=== PATIENT | female | born 1955 | race Caucasian/White ===

== ENCOUNTER 2017-02-14 10:47 | Inpatient (IN) | payer BC ==
[~2017-02-14] VITALS: Ht 157.5 cm; Wt 52.4 kg
[2017-02-14] VITALS (12 sets, daily range): BP systolic 113–125; BP diastolic 63–71; PULSE 74–99; RESP 16; TEMP 97.7–97.8; O2SAT 96–100
[~2017-02-14 10:47] MED LIST: ALPR.25 PO; CYCL1TAB29 PO; IBUP800T23 PO; IMIT50TA PO; LEVO25TA4 PO; REST15CA PO
[2017-02-14] MEDS ORDERED: SODIUM CHLOR 0.9% 1000 ML INJ 1,000 ML IV ONE (10:55)
[2017-02-14 11:06] LABS: I-STAT SODIUM 143 MMOL/L (138-146)
[2017-02-14 11:08] LABS: BASOPHIL # 0.1 TH/MM3 (0-0.2); BASOPHIL % 1.3 % (0.0-2.0); EOSINOPHIL # 0.2 TH/MM3 (0-0.4); HEMATOCRIT 40.8 % (35.0-46.0); HEMO FLAGS DIFF FINAL; LYMPH % 26.6 % (9.0-44.0); LYMPHOCYTE # 2.1 TH/MM3 (1.0-4.8); MEAN CELL VOLUME 95.1 FL (80.0-100.0); MEAN CORPUSCULAR HEMOGLOBIN 32.3 PG (27.0-34.0); MEAN CORPUSCULAR HGB CONC 33.9 % (32.0-36.0); MONO % 7.2 % (0.0-8.0); NEUT % 62.9 % (16.0-70.0); PLATELET COUNT 319 TH/MM3 (150-450); RED BLOOD COUNT 4.29 MIL/MM3 (4.00-5.30); RED CELL DISTRIBUTION WIDTH 13.5 % (11.6-17.2); WHITE BLOOD COUNT 7.9 TH/MM3 (4.0-11.0)
--- NOTE | 2017-02-14 11:09 | RADRPT ---
EXAM DATE/TIME: 02/14/2017 10:58 [facility] COMPARISON: CT BRAIN W/O CONTRAST, January 28, 2016, 10:03. INDICATIONS : Right extremity weakness. RADIATION DOSE: 27.70 CTDIvol (mGy) This report was called by Orlando Patiño at <1107am> MEDICAL HISTORY : Non-responsive. SURGICAL HISTORY : Non-responsive. ENCOUNTER: Initial ACUITY: 1 day PAIN SCALE: Non-responsive LOCATION: cranial TECHNIQUE: Multiple contiguous axial images were obtained of the head. Using automated exposure control and adj ustment of the mA and/or kV according to patient size, radiation dose was kept as low as reasonably a chievable to obtain optimal diagnostic quality images. DICOM format image data is available electro nically for review and comparison. FINDINGS: CEREBRUM: The ventricles are normal for age. No evidence of midline shift, mass lesion, hemorrhage or acute in farction. No extra-axial fluid collections are seen. POSTERIOR FOSSA: The cerebellum and brainstem are intact. The 4th ventricle is midline. The cerebellopontine angle i s unremarkable. EXTRACRANIAL: The visualized portion of the orbits is intact. SKULL: The calvaria is intact. No evidence of skull fracture. CONCLUSION: Normal examination. This report was called to Haroon at 1107am.. Ousmane Perry MD on February 14, 2017 at 11:07 Board Certified Radiologist. This report was verified electronically.
[2017-02-14 11:17] LABS: INTERNATIONAL NORMALIZED RATIO 0.9 RATIO; PROTHROMBIN TIME - PATIENT 10.3 SEC (9.8-11.6)
[2017-02-14 11:18] LABS: APTT (PATIENT) 27.3 SEC (24.3-30.1)
--- NOTE | 2017-02-14 11:25 | PD ---
HPI . Right-sided weakness Chief Complaint: Neuro Symptoms/ Deficits Time Seen by Provider: 10:52 Travel History International Travel<30 days: No Contact w/Intl Traveler<30days: No Traveled to known affect area: No History of Present Illness HPI This patient presents by [facility] with a chief complaint of acute right sided weakness. She was driving her car when she noticed right arm weakness. Estimated onset of symptoms was between 10 and 10:15 AM. She subsequently noticed some right lower extremity weakness as well. Patient reports that she does not take any anticoagulants. No noted inciting event. No exacerbating or relieving factors. Symptoms are mild. PFSH Past Medical History Arthritis: No Autoimmune Disease: No Blood Disorders: No Anxiety: Yes Depression: Yes Cancer: No Cardiovascular Problems: No Cerebrovascular Accident: No Diabetes: No Diminished Hearing: No Endocrine: Yes Fibromyalgia: Yes Gastrointestinal Disorders: Yes Genitourinary: Yes Headaches: Yes Hepatitis: No Hiatal Hernia: No Immune Disorder: No Musculoskeletal: Yes (DEGENERATIVE DISC DISEASE PER PT,NECK BACK , ARTHRTIS) Neurologic: Yes (NUMBNESS AND TINGLING) Psychiatric: No Reproductive: No Respiratory: No Migraines: Yes Myocardial Infarction: No Renal Failure: No Seizures: Yes (one during 32 years ago) Thyroid Disease: Yes Ulcer: No Menopausal: Yes Past Surgical History Abdominal Surgery: Yes (APPY, OVARY RUPTURED AND REPAIRED) Appendectomy: Yes Cardiac Surgery: No Ear Surgery: No Endocrine Surgery: No Eye Surgery: No Genitourinary Surgery: Yes (pilonidal cysts) Gynecologic Surgery: No Oral Surgery: No Thoracic Surgery: No Other Surgery: Yes Social History Alcohol Use: Yes (OCC) Tobacco Use: Yes (1 PPD) Substance Use: No Allergies-Medications (Allergen,Severity, Reaction): Coded Allergies: No Known Allergies (Verified , 02/14/17) Reported Meds & Prescriptions Reported Meds & Active Scripts Active Flexeril (Cyclobenzaprine HCl) 10 Mg Tab 10 Mg PO TID PRN Reported Restoril (Temazepam) 15 Mg Cap 15 Mg PO HS PRN Xanax (Alprazolam) 0.25 Mg Tab 0.25 Mg PO TID PRN Ibuprofen 800 Mg Tab 800 Mg PO Q8H PRN Review of Systems Except as stated in HPI: all other systems reviewed are Neg Eyes: No: Blurred Vision HENT: No: Headaches Cardiovascular: No: Chest Pain or Discomfort Respiratory: No: Shortness of Breath Gastrointestinal: No: Nausea, Vomiting Neurologic: Positive: Weakness, Focal Abnormalities, Slurred Speech (EMS reports some slurred speech), No: Syncope, Headache, Change in Mentation, Incontinence, Seizures Physical Exam Narrative GENERAL: Patient is awake and alert and able to give her history. SKIN: Warm and dry. HEAD: Atraumatic. Normocephalic. EYES: Pupils equal and round. Extraocular movements are intact. ENT: No nasal bleeding or discharge. Mucous membranes pink and moist. NECK: Trachea midline. Neck is supple. CARDIOVASCULAR: Regular rate and rhythm. Heart sounds are normal. RESPIRATORY: No accessory muscle use. Lungs are clear with full air movement throughout. GASTROINTESTINAL: Abdomen soft, non-tender, nondistended. MUSCULOSKELETAL: No obvious deformities. No edema. NEUROLOGICAL: Awake and alert. No obvious cranial nerve deficits. Mild right- sided weakness. Initial NIH stroke score was 4. PSYCHIATRIC: Appropriate mood and affect; insight and judgment normal. Patient appears frightened. Data Data Last Documented VS Vital Signs Date Time Temp Pulse Resp B/P Pulse Ox O2 Delivery O2 Flow Rate FiO2 02/14/17 11:14 96 16 113/66 100 Room Air 2 02/14/17 10:51 97.7 Orders Diet Npo (02/14/17 Lunch) Activity Bed Rest (02/14/17 ) Electrocardiogram (02/14/17 ) I-Stat Creatinine (02/14/17 10:55) I-Stat Profile (02/14/17 10:55) Prothrombin Time / Inr (Pt) (02/14/17 10:55) Act Partial Throm Time (Ptt) (02/14/17 10:55) Complete Blood Count With Diff (02/14/17 10:55) Fibrinogen (02/14/17 10:55) Creatine Kinase (Cpk) (02/14/17 10:55) Troponin I (02/14/17 10:55) Ua Includes Microscopic (02/14/17 10:55) Drug Screen, Random Urine (02/14/17 10:55) Type And Screen (02/14/17 10:55) Ct Brain W/O Iv Contrast(Rout) (02/14/17 ) Consult Neurology (02/14/17 ) Blood Glucose (02/14/17 10:55) Ecg Monitoring (02/14/17 10:55) Neuro Checks Q2HX12,Q4H (02/14/17 10:55) Nursing Bedside Swallow Assess .ONCE (02/14/17 10:55) Iv Access Insert/Monitor (02/14/17 10:55) NPO (02/14/17 10:55) Oximetry (02/14/17 10:55) Oxygen Administration (02/14/17 10:55) Sodium Chlor 0.9% 1000 Ml Inj (Ns 1000 M (02/14/17 10:55) Resp Oxygen Cale C Titrat 1-4 L (02/14/17 10:55) Cath For Specimen (02/14/17 10:55) ^ Call Pharmacy (02/14/17 11:16) Nih Stroke Scale - Nihss .ONCE (02/14/17 11:16) Urinary Catheter Insert/Apply (02/14/17 11:16) Anticoagulant Alert (02/14/17 11:16) ^ Post Infusion Restrictions (02/14/17 11:16) ^ Medication Alert (02/14/17 11:16) Vital Signs (Adult) .As directed (02/14/17 11:16) Notify Dr: Blood Pressure (02/14/17 11:16) ^ Medication Alert (02/14/17 11:16) Alteplase Bolus (Activase Bolus) (02/14/17 11:30) Alteplase Drip (Activase Drip) (02/14/17 11:30) Labs Laboratory Tests Test 02/14/17 10:50 White Blood Count 7.9 TH/MM3 Red Blood Count 4.29 MIL/MM3 Hemoglobin 13.8 GM/DL Bedside Hemoglobin 13.9 G/DL Hematocrit 40.8 % Bedside Hematocrit 41.0 % Mean Corpuscular Volume 95.1 FL Mean Corpuscular Hemoglobin 32.3 PG Mean Corpuscular Hemoglobin 33.9 % Concent Red Cell Distribution Width 13.5 % Platelet Count 319 TH/MM3 Mean Platelet Volume 7.7 FL Neutrophils (%) (Auto) 62.9 % Lymphocytes (%) (Auto) 26.6 % Monocytes (%) (Auto) 7.2 % Eosinophils (%) (Auto) 2.0 % Basophils (%) (Auto) 1.3 % Neutrophils # (Auto) 5.0 TH/MM3 Lymphocytes # (Auto) 2.1 TH/MM3 Monocytes # (Auto) 0.6 TH/MM3 Eosinophils # (Auto) 0.2 TH/MM3 Basophils # (Auto) 0.1 TH/MM3 CBC Comment DIFF FINAL Differential Comment Prothrombin Time 10.3 SEC Prothromb Time International 0.9 RATIO Ratio Activated Partial 27.3 SEC Thromboplast Time Fibrinogen 279 mg/dL Bedside Sodium 143 MMOL/L Bedside Potassium 5.0 MMOL/L Bedside Chloride 106 MMOL/L Bedside Blood Urea Nitrogen 20 MG/DL Bedside Creatinine 0.7 MG/DL Bedside Glucose 102 MG/DL MDM Medical Screen Exam Complete: Yes Emergency Medical Condition: Yes Differential Diagnosis Differential diagnosis includes but is not limited to TIA, CVA, brain tumor, migraine, anxiety Narrative Course Patient presents as a stroke alert. Stroke score was 4. The case was discussed urgently with Dr. Bustillos who recommended TPA if her head CT was negative. The radiologist reports that the head CT is indeed negative. Therefore, TPA has been ordered. Dr. Bustillos is now here seeing the patient. EKG shows a normal sinus rhythm with no acute ischemic change. Last Impressions Head CT 02/14/17 0000 Signed Impressions: Service Date/Time: Tuesday, February 14, 2017 10:58 - CONCLUSION: Normal examination. This report was called to [place] at 1107am.. Ousmane Perry MD Critical Care Narrative Aggregate critical care time was 30 minutes. Time to perform other separately billable procedures was not included in the critical care time. My time did not include minutes spent treating any other patients simultaneously or on activities that did not directly contribute to the patient's treatment. The services I provided to this patient were to treat and/or prevent clinically significant deterioration that could result from CVA. I provided critical care services requiring my management, as noted below: Chart data review, documentation time, medication orders and management, vital sign assessments/reviewing monitor data, ordering and reviewing lab tests, ordering and interpreting/reviewing x-rays and diagnostic studies, care of the patient and discussion of the patient with the admitting physicians. Stroke Alert NIHSS NIH Stroke Scale Result: 4 NIHSS Time Completed: 11:00 Physician Communication Physician Communication Case was discussed with Dr. Bustillos, neurology and with Dr. Perry, radiology. Diagnosis Diagnosis: Primary Impression: CVA (cerebral vascular accident) Qualified Code: I63.9 - Cerebrovascular accident (CVA), unspecified mechanism Admitting Physician Requests: Admit Condition: Stable Lashaun Patiño MD Feb 14, 2017 11:25
[2017-02-14] MEDS ORDERED: ALTEPLASE BOLUS 9 MG/9 ML SYR IV ONE (11:30)
[2017-02-14] MEDS ORDERED: ALTEPLASE DRIP IV ONE (11:30)
[2017-02-14 11:38] LABS: CREATINE KINASE 98 U/L (26-192)
[2017-02-14 12:02] LABS: AMPHETAMINE, URINE NEG (NEG); BARBITURATES, URINE NEG (NEG); COCAINE, URINE NEG (NEG)
[2017-02-14 12:08] LABS: HDL CHOLESTEROL 59.7 MG/DL (40.0-60.0)
[2017-02-14 12:17] LABS: BACTERIA, URINE OCC /hpf; BLOOD, URINE NEG (NEG); GLUCOSE,URINE NEG (NEG); KETONE, URINE NEG (NEG); NITRITE,URINE POS (NEG); SQUAMOUS EPITHELIAL CELL URINE <1 /hpf (0-5); URINE COLOR YELLOW (YELLW/STRAW)
--- NOTE | 2017-02-14 13:04 | RADRPT ---
EXAM DATE/TIME: 02/14/2017 12:30 [facility] COMPARISON: No previous studies available for comparison. INDICATIONS : Cerebrovascular accident. MEDICAL HISTORY : Hypothyroidism. Seizures. Fibromyalgia. SURGICAL HISTORY : Appendectomy. Cervical fusion. ENCOUNTER: Initial ACUITY: 1 day PAIN SCORE: 0/10 LOCATION: Bilateral neck PEAK SYSTOLIC VELOCITIES (cm/sec): ICA/CCA RATIO: Right: 0.9 Left: 1.2 ICA: Right: 69 Left: 103 CCA: Right: 80 Left: 88 ECA: Right: 92 Left: 87 VERTEBRAL: Right: 40 antegrade Left: 92 antegrade Elevated flow velocities and ICA/CCA ratios have been found to correlate with increased degrees of vessel stenosis, calculated as percentage of diameter relative to a normal segment of distal ICA/CCA FINDINGS: RIGHT CAROTID: No significant stenosis is visualized. Mild plaque. The waveforms are within normal limits. LEFT CAROTID: No significant stenosis is visualized. Mild plaque. The waveforms are within normal limits. VERTEBRAL ARTERIES: Antegrade flow is seen in both vertebral arteries. MISCELLANEOUS: None. CONCLUSION: No hemodynamically significant stenosis identified in either carotid artery. Laci Zaman MD on February 14, 2017 at 13:02 Board Certified Radiologist. This report was verified electronically.
[2017-02-14] MEDS ORDERED: GADODIAMIDE PF 287 MG/ML 10 ML VIAL (for RAD MRI) IV ONE (13:22)
--- NOTE | 2017-02-14 13:34 | RADRPT ---
EXAM DATE/TIME: 02/14/2017 13:02 [facility] COMPARISON: No previous studies available for comparison. INDICATIONS : Right sided weakness. MEDICAL HISTORY : Arthritis. SURGICAL HISTORY : Fusion, cervical. ENCOUNTER: Initial ACUITY: 1 day PAIN SCORE: 0/10 LOCATION: cranial Please note a normal MRA of the brain does not entirely exclude the possibility of a small aneurysm, nor the possibility of distal intracranial vessel disease. TECHNIQUE: 3D time of flight MRA was performed. Source images, multiplanar STS MIP, and 3D volume MIP reconstru ctions were reviewed. FINDINGS: There is excellent visualization of the major intracranial arteries out to the second-order branch ve ssels. There is no evidence for aneurysm, vessel truncation or stenosis, and no evidence for vascula r malformation. There are prominent bilateral superior cerebellar arteries. CONCLUSION: Normal examination. There is some unusual anatomy in regards to the left posterior cerebral artery. The left posterior vertebral artery extends anteriorly joining with the left posterior communicating artery which then contributes the majority of flow to the left posterior cerebral circulation. Ousmane Perry MD on February 14, 2017 at 13:31 Board Certified Radiologist. This report was verified electronically.
--- NOTE | 2017-02-14 13:39 | RADRPT ---
EXAM DATE/TIME: 02/14/2017 13:02 [facility] COMPARISON: No previous studies available for comparison. INDICATIONS : Right sided weakness. CONTRAST: 10 cc Omniscan (gadodiamide) IV MEDICAL HISTORY : Arthritis. SURGICAL HISTORY : Fusion, cervical. ENCOUNTER: Initial ACUITY: 1 day PAIN SCORE: 0/10 LOCATION: cranial TECHNIQUE: Multiplanar, multisequence MRI of the brain was performed both prior to and following the administrat ion of paramagnetic contrast. FINDINGS: CEREBRUM: Small area of high flair abnormality in the left posterior capsule of the basal ganglia. The ventricl es are normal for age. No evidence of midline shift, mass lesion or hemorrhage. No extraaxial fluid collections are seen. The pituitary gland and suprasellar cistern are normal in configuration. WHITE MATTER: No significant signal abnormalities are seen in the white matter. POSTERIOR FOSSA: The cerebellum and brainstem are intact. The 4th ventricle is midline. The cerebellopontine angle is unremarkable. The cerebellar tonsils are normal in position. DIFFUSION IMAGING: Small area of focal restricted diffusion seen left basal ganglia consistent with acute infarction. EXTRACRANIAL: The visualized portions of the orbits and paranasal sinuses are unremarkable. POST-CONTRAST: No abnormal areas of parenchymal or dural enhancement. No evidence of blood-brain barrier breakdown. CONCLUSION: 1. Small area of acute infarction left basal ganglia. 2. No midline shift or mass effect. Laci Zaman MD on February 14, 2017 at 13:35 Board Certified Radiologist. This report was verified electronically.
--- NOTE | 2017-02-14 15:22 | MB ---
cc: QUINN GLASER DATE OF CONSULTATION: 02/14/2017 REASON FOR CONSULTATION Stroke alert. HISTORY OF PRESENT ILLNESS Ms. Lima is a very pleasant 61-year-old female previously in good health until around 10:15 this morning when she had the abrupt onset of weakness involving the right arm and right leg. She had no speech changes. A stroke alert was called. Her symptoms have remained unchanged. She has no prior stroke or TIA. She denies being on any anticoagulants. No recent surgery. No history of blood loss. PAST MEDICAL HISTORY 1. Degenerative joint disease. 2. Osteoarthritis. 3. Fibromyalgia. 4. Low blood pressure. 5. Migraine headache. 6. Appendectomy. 7. Ovarian rupture and repair. 8. Pilonidal cyst surgery. SOCIAL HISTORY Drinks alcohol occasionally. She does smoke one-pack a day. MEDICATIONS AT HOME 1. Restoril. 2. Xanax. 3. Ibuprofen. ALLERGIES NONE KNOWN. NEUROLOGIC EXAMINATION VITAL SIGNS: Her blood pressure is 113/66, pulse 96, respiratory rate is 16, temperature 97.7 degrees. Higher cortical functions are normal including speech. Cranial nerves: A very subtle right facial droop, other cranial nerves are normal. On motor exam she is weak in the right arm about 3/5, the right leg is 4/5 proximally and distally with normal strength to the left arm and left leg. She has got diminished fine motor skills of the right hand. Reflexes are symmetric. IMAGING CT of the brain is within normal limits. No hemorrhage, no mass effect, no edema. LABORATORY DATA White count 7900, hemoglobin 13.5, hematocrit 40.8%, platelet count 319,000. Sodium is 143, potassium is 5, chloride 106, BUN is 20, creatinine 0.7, glucose 102. PT 10.3, INR 0.9, APTT 27.3. IMPRESSION Acute left hemisphere stroke. The patient is a candidate for IV TPA. Her NIH Stroke Scale is 4. Therefore, in the absence of aphasia and with an NIH Stroke Scale of less than 6 would not recommend any further evaluation with a CTA or CT perfusion as she would not be a candidate for endovascular therapy, however she is a candidate for IV TPA. I did review with her in detail the risks and benefits including a 6% risk of hemorrhage. She states that she does wish to proceed with IV TPA therefore we will administer per protocol. Would recommend admission to the Intensive Care Unit with following the post TPA order sets, obtaining a CT of the brain 24 hours post TPA. The patient should not be treated with any anticoagulants or antiplatelets for at least 24 hours. We will also evaluate her further with an MRI/MRA of the brain, echocardiogram and a carotid ultrasound, monitor cardiac telemetry, rule out atrial fibrillation, also check a lipid panel. MD RADHA Cao/LORA /11:35 AM /3:12 PM
--- NOTE | 2017-02-14 15:51 | HHI.PR ---
Review/Management Diagnosis Acute left hemisphere CVA--improving after iv TPA Plan No antiplatelet or anticoagulant meds for at least 24 hr post tpa recheck CT brain at 24 hr post TPA MRI and MRA brain echo and carotid US Diagnosis/Plan: Subjective Subjective Comments No acute events reported She is reporting significant improvement in right arm and leg strength and sensation. Active Medications Current Medications Medications (Trade) Dose Ordered Sig/Danica Route Start Time Stop Time Status Last Admin (NS 1000 ml Inj) 1,000 ml @ 70 mls/hr [id number] ONCE IV 02/14/17 10:55 02/15/17 01:12 02/14/17 11:13 Allergies Allergies Coded Allergies No Known Allergies (Verified02/14/17) Exam I&O / VS Vital Signs Date Time Temp Pulse Resp B/P Pulse Ox O2 Delivery O2 Flow Rate FiO2 02/14/17 13:30 97.8 81 16 118/69 100 Nasal Cannula 2 02/14/17 12:30 88 16 124/63 100 Nasal Cannula 2 02/14/17 11:14 96 16 113/66 100 Room Air 2 02/14/17 10:59 100 2.00 02/14/17 10:59 100 Nasal Cannula 2.00 02/14/17 10:51 97.7 99 16 125/71 100 02/14/17 10:51 100 Nasal Cannula 2 02/14/17 10:51 16 100 Nasal Cannula 2 Exam Comments alert, follow commands, speech normal CN 2-12 normal MOTOR 4+/5 RUE and RLE, 5/5 LUE and LLE sensation--normal Objective Micro and Labs Laboratory Tests Test 02/14/17 02/14/17 10:50 11:11 White Blood Count 7.9 Red Blood Count 4.29 Hemoglobin 13.8 Bedside Hemoglobin 13.9 Hematocrit 40.8 Bedside Hematocrit 41.0 Mean Corpuscular Volume 95.1 Mean Corpuscular Hemoglobin 32.3 Mean Corpuscular Hemoglobin 33.9 Concent Red Cell Distribution Width 13.5 Platelet Count 319 Mean Platelet Volume 7.7 Neutrophils (%) (Auto) 62.9 Lymphocytes (%) (Auto) 26.6 Monocytes (%) (Auto) 7.2 Eosinophils (%) (Auto) 2.0 Basophils (%) (Auto) 1.3 Neutrophils # (Auto) 5.0 Lymphocytes # (Auto) 2.1 Monocytes # (Auto) 0.6 Eosinophils # (Auto) 0.2 Basophils # (Auto) 0.1 CBC Comment DIFF FINAL Differential Comment Prothrombin Time 10.3 Prothromb Time International 0.9 Ratio Activated Partial 27.3 Thromboplast Time Fibrinogen 279 Bedside Sodium 143 Bedside Potassium 5.0 Bedside Chloride 106 Bedside Blood Urea Nitrogen 20 Bedside Creatinine 0.7 Bedside Glucose 102 Total Creatine Kinase 98 Troponin I LESS THAN 0.02 Triglycerides Level 49 Cholesterol Level 170 LDL Cholesterol 101 HDL Cholesterol 59.7 Cholesterol/HDL Ratio 2.84 Blood Type O POSITIVE Antibody Screen NEGATIVE Urine Color YELLOW Urine Turbidity CLEAR Urine pH 6.0 Urine Specific Lindsay 1.018 Urine Protein NEG Urine Glucose (UA) NEG Urine Ketones NEG Urine Occult Blood NEG Urine Nitrite POS Urine Bilirubin NEG Urine Urobilinogen LESS THAN 2.0 Urine Leukocyte Esterase TRACE Urine RBC LESS THAN 1 Urine WBC 5 Urine Squamous Epithelial <1 Cells Urine Bacteria OCC Microscopic Urinalysis Comment Urine Opiates Screen NEG Urine Barbiturates Screen NEG Urine Amphetamines Screen NEG Urine Benzodiazepines Screen NEG Urine Cocaine Screen NEG Urine Cannabinoids Screen NEG Neel Bustillos PhD Feb 14, 2017 15:51
--- NOTE | 2017-02-14 15:54 | HHI.HP ---
HPI Service Critical Care Medicine Primary Care Physician Unknown Admission Diagnosis stroke Diagnosis: Chief Complaint: Right sided weakness Travel History International Travel<30 Days: No Contact w/Intl Traveler <30 Da: No Traveled to Known Affected Are: No History of Present Illness HPI This patient presented by [facility] with a chief complaint of acute right sided weakness. She was driving her car when she noticed right arm weakness . Estimated onset of symptoms was between 10 and 10:15 AM. Patient reports that she does not take any anticoagulants. No noted inciting event. No exacerbating or relieving factors. Patient was evaluated by neurology Dr. Bustillos in the ER. She underwent thrombolysis with TPA while in the emergency room and subsequently underwent MRI/MRA brain and was transferred to the ICU. I evaluated the patient immediately following arrival to the ICU. At that time she is resting in bed not in any acute distress. History is obtained by reviewing records and discussion with patient, ER physician and nursing staff. At the time of my evaluation patient stated that her right leg was already feeling back to normal and her power in the right upper extremity had significantly improved since thrombo-lysis however she still had some tingling sensation in the right upper extremity. History PFSH Past Medical History Arthritis: No Autoimmune Disease: No Blood Disorders: No Anxiety: Yes Depression: Yes Cancer: No Cardiovascular Problems: No Cerebrovascular Accident: No Diabetes: No Diminished Hearing: No Endocrine: Yes Fibromyalgia: Yes Gastrointestinal Disorders: Yes Genitourinary: Yes Headaches: Yes Hepatitis: No Hiatal Hernia: No Immune Disorder: No Musculoskeletal: Yes (DEGENERATIVE DISC DISEASE PER PT,NECK BACK , ARTHRTIS) Neurologic: Yes (NUMBNESS AND TINGLING) Psychiatric: No Reproductive: No Respiratory: No Migraines: Yes Myocardial Infarction: No Renal Failure: No Seizures: Yes (one during 32 years ago) Thyroid Disease: Yes Ulcer: No Menopausal: Yes Past Surgical History Abdominal Surgery: Yes (APPY, OVARY RUPTURED AND REPAIRED) Appendectomy: Yes Cardiac Surgery: No Ear Surgery: No Endocrine Surgery: No Eye Surgery: No Genitourinary Surgery: Yes (pilonidal cysts) Gynecologic Surgery: No Oral Surgery: No Thoracic Surgery: No Other Surgery: Yes Social History Alcohol Use: Yes (OCC) Tobacco Use: Yes (1 PPD) Substance Use: No Allergies-Medications Allergies-Medications (Allergen,Severity, Reaction): Coded Allergies: No Known Allergies (Verified , 02/14/17) Reported Meds & Prescriptions Reported Meds & Active Scripts Active Flexeril (Cyclobenzaprine HCl) 10 Mg Tab 10 Mg PO TID PRN Reported Restoril (Temazepam) 15 Mg Cap 15 Mg PO HS PRN Xanax (Alprazolam) 0.25 Mg Tab 0.25 Mg PO TID PRN Ibuprofen 800 Mg Tab 800 Mg PO Q8H PRN ROS Review of Systems Except as stated in HPI: all other systems reviewed are Neg Eyes: No: Blurred Vision HENT: No: Headaches Cardiovascular: No: Chest Pain or Discomfort Respiratory: No: Shortness of Breath Gastrointestinal: No: Nausea, Vomiting Neurologic: Positive: Weakness, Focal Abnormalities, Slurred Speech (EMS reported some slurred speech), No: Syncope, Headache, Change in Mentation, Incontinence, Seizures Physical Exam Vital Signs Vital Signs Date Time Temp Pulse Resp B/P Pulse Ox O2 Delivery O2 Flow Rate FiO2 02/14/17 13:30 97.8 81 16 118/69 100 Nasal Cannula 2 02/14/17 12:30 88 16 124/63 100 Nasal Cannula 2 02/14/17 11:14 96 16 113/66 100 Room Air 2 02/14/17 10:59 100 2.00 02/14/17 10:59 100 Nasal Cannula 2.00 02/14/17 10:51 97.7 99 16 125/71 100 02/14/17 10:51 100 Nasal Cannula 2 02/14/17 10:51 16 100 Nasal Cannula 2 Physical Exam HEENT/Neuro: No pallor or icterus, tongue moist, CARMEN, Awake alert oriented 3 , minimal facial droop noted on the right side. Grade 5 power in left upper and lower extremity, grade 4 power right upper extremity, grade 5 power right lower extremity. Plantars: Left downgoing, right extensor Neck: No JVD Chest/pulmonary: CTA bilaterally Cardiovascular: S1-S2 regular no gallop or murmur GI/abdomen: Soft, nontender, bowel sounds present Extremities: Warm bilaterally, no edema Laboratory Laboratory Tests Test 02/14/17 02/14/17 10:50 11:11 White Blood Count 7.9 Red Blood Count 4.29 Hemoglobin 13.8 Bedside Hemoglobin 13.9 Hematocrit 40.8 Bedside Hematocrit 41.0 Mean Corpuscular Volume 95.1 Mean Corpuscular Hemoglobin 32.3 Mean Corpuscular Hemoglobin 33.9 Concent Red Cell Distribution Width 13.5 Platelet Count 319 Mean Platelet Volume 7.7 Neutrophils (%) (Auto) 62.9 Lymphocytes (%) (Auto) 26.6 Monocytes (%) (Auto) 7.2 Eosinophils (%) (Auto) 2.0 Basophils (%) (Auto) 1.3 Neutrophils # (Auto) 5.0 Lymphocytes # (Auto) 2.1 Monocytes # (Auto) 0.6 Eosinophils # (Auto) 0.2 Basophils # (Auto) 0.1 CBC Comment DIFF FINAL Differential Comment Prothrombin Time 10.3 Prothromb Time International 0.9 Ratio Activated Partial 27.3 Thromboplast Time Fibrinogen 279 Bedside Sodium 143 Bedside Potassium 5.0 Bedside Chloride 106 Bedside Blood Urea Nitrogen 20 Bedside Creatinine 0.7 Bedside Glucose 102 Total Creatine Kinase 98 Troponin I LESS THAN 0.02 Triglycerides Level 49 Cholesterol Level 170 LDL Cholesterol 101 HDL Cholesterol 59.7 Cholesterol/HDL Ratio 2.84 Blood Type O POSITIVE Antibody Screen NEGATIVE Urine Color YELLOW Urine Turbidity CLEAR Urine pH 6.0 Urine Specific [place] 1.018 Urine Protein NEG Urine Glucose (UA) NEG Urine Ketones NEG Urine Occult Blood NEG Urine Nitrite POS Urine Bilirubin NEG Urine Urobilinogen LESS THAN 2.0 Urine Leukocyte Esterase TRACE Urine RBC LESS THAN 1 Urine WBC 5 Urine Squamous Epithelial <1 Cells Urine Bacteria OCC Microscopic Urinalysis Comment Urine Opiates Screen NEG Urine Barbiturates Screen NEG Urine Amphetamines Screen NEG Urine Benzodiazepines Screen NEG Urine Cocaine Screen NEG Urine Cannabinoids Screen NEG Result Diagram: 02/14/17 1050 Imaging Last Impressions Head Magnetic Resonance Angiography 02/14/17 0000 Signed Impressions: Service Date/Time: Tuesday, February 14, 2017 13:02 - CONCLUSION: Normal examination. There is some unusual anatomy in regards to the left posterior cerebral artery. The left posterior vertebral artery extends anteriorly joining with the left posterior communicating artery which then contributes the majority of flow to the left posterior cerebral circulation. Ousmane Perry MD Head CT 02/14/17 0000 Signed Impressions: Service Date/Time: Tuesday, February 14, 2017 10:58 - CONCLUSION: Normal examination. This report was called to [facility] at 1107am.. Ousmane Perry MD Carotid Artery Ultrasound 02/14/17 0000 Signed Impressions: Service Date/Time: Tuesday, February 14, 2017 12:30 - CONCLUSION: No hemodynamically significant stenosis identified in either carotid artery. Laci F. Tocci, MD Brain MRI 02/14/17 0000 Signed Impressions: Service Date/Time: Tuesday, February 14, 2017 13:02 - CONCLUSION: 1. Small area of acute infarction left basal ganglia. 2. No midline shift or mass effect. Laci Zaman MD Assessment and Plan Assessment and Plan 61-year-old female with: Ischemic left basal ganglia stroke status post TPA Fibromyalgia Migraines Osteoarthritis Plan: Neuro: Status post, lysis with TPA. Neurology consulted and has evaluated patient. Follow-up 2-D echo, carotid Dopplers. Repeat head CT tomorrow to follow up on, lysis. If head CT negative tomorrow antiplatelet therapy to be initiated per neurology. Speech and swallow eval, rehabilitation eval, PT/OT. Ordered statin. Check lipid profile Cardiovascular: Antihypertensives ordered to keep systolic blood pressure less than 180 mmHg. Pulmonary: Supplemental O2 as needed. GI/liver: By mouth diet if okay with neurology. Renal/: IV hydration, strict intake output, monitor and replete elect lites, follow BUN/creatinine. ID: No indication for antibiotics at this time. Heme: Follow CBC Endocrine: Watch for hyperglycemia, SSI for glycemic control if needed. Prophylaxis: SCDs. Subcutaneous Lovenox when okay with neurology. Patient appears to be doing better with some resolution of her right sided weakness. Plan to consult and transfer to hospitalist service tomorrow for further medical management. Manny Delcid MD Feb 14, 2017 15:54
--- NOTE | 2017-02-14 17:36 | EKG ---
Date Performed: 02/14/2017 Time Performed: 11:13:47 PTAGE: 61 years EKG: Sinus rhythm POSSIBLE LEFT ATRIAL ENLARGEMENT INCOMPLETE RIGHT BUNDLE BRANCH BLOCK BORDERLINE ECG PREVIOUS TRACING : 06/16/2016 12.18 Compared to prior tracing no significant change DOCTOR: Sunny Quintana Interpretating Date/Time 02/14/2017 17:35:32
[2017-02-15] VITALS (11 sets, daily range): BP systolic 105–113; BP diastolic 58–83; PULSE 67–90; RESP 13–18; TEMP 98.6–99.2; O2SAT 94–99
--- NOTE | 2017-02-15 08:52 | HHI.PR ---
Subjective Remarks resting comfortably with no distress. says that his weakness has resolved and now ' is back to her normal.; d/w the RN and no acute issues over night. Objective Vitals Vital Signs Date Time Temp Pulse Resp B/P Pulse Ox O2 Delivery O2 Flow Rate FiO2 02/15/17 07:00 98 Room Air 02/15/17 06:00 75 02/15/17 04:00 69 02/15/17 02:00 72 02/15/17 00:00 67 02/14/17 22:00 80 02/14/17 20:16 96 21 02/14/17 20:00 96 02/14/17 19:00 97 Room Air 02/14/17 18:00 76 02/14/17 16:21 97 21 02/14/17 16:00 74 02/14/17 14:00 95 Room Air 02/14/17 14:00 91 02/14/17 13:50 100 Nasal Cannula 2.00 02/14/17 13:30 97.8 81 16 118/69 100 Nasal Cannula 2 02/14/17 12:30 88 16 124/63 100 Nasal Cannula 2 02/14/17 11:14 96 16 113/66 100 Room Air 2 02/14/17 10:59 100 2.00 02/14/17 10:59 100 Nasal Cannula 2.00 02/14/17 10:51 97.7 99 16 125/71 100 02/14/17 10:51 100 Nasal Cannula 2 02/14/17 10:51 16 100 Nasal Cannula 2 I/O 02/14/17 02/14/17 02/14/17 02/15/17 02/15/17 02/15/17 07:00 15:00 23:00 07:00 15:00 23:00 Intake Total 700 ml 389 ml Output Total 475 ml 425 ml Balance 225 ml -36 ml Intake Oral 100 ml IV Total 600 ml 389 ml Output Urine Total 475 ml 425 ml # Voids 1 1 # Bowel Movements 0 0 Result Diagram: 02/14/17 1050 Imaging Last Impressions Head Magnetic Resonance Angiography 02/14/17 0000 Signed Impressions: Service Date/Time: Tuesday, February 14, 2017 13:02 - CONCLUSION: Normal examination. There is some unusual anatomy in regards to the left posterior cerebral artery. The left posterior vertebral artery extends anteriorly joining with the left posterior communicating artery which then contributes the majority of flow to the left posterior cerebral circulation. Ousmane Perry MD Head CT 02/14/17 Signed Impressions: Service Date/Time: Tuesday, February 14, 2017 10:58 - CONCLUSION: Normal examination. This report was called to [facility] at 1107am.. Ousmane Perry MD Carotid Artery Ultrasound 02/14/17 Signed Impressions: Service Date/Time: Tuesday, February 14, 2017 12:30 - CONCLUSION: No hemodynamically significant stenosis identified in either carotid artery. Laci Zaman MD Brain MRI 02/14/17 Signed Impressions: Service Date/Time: Tuesday, February 14, 2017 13:02 - CONCLUSION: 1. Small area of acute infarction left basal ganglia. 2. No midline shift or mass effect. Laci Zaman MD Objective Remarks GENERAL: This is a well-nourished, well-developed patient, in no apparent distress. CARDIOVASCULAR: Regular rate and regular rhythm without murmurs, gallops, or rubs. RESPIRATORY: Clear to auscultation. Breath sounds equal bilaterally. No wheezes , rales, or rhonchi. GASTROINTESTINAL: Abdomen soft, non-tender, nondistended. Normal, active bowel sounds MUSCULOSKELETAL: Extremities without clubbing, cyanosis, or edema. NEURO: Alert & Oriented x4 to person, place, time, situation. Moves all ext x4 Procedures none Medications and IVs Current Medications Sodium Chloride (NS 1000 ml Inj) 1,000 ml @ 70 mls/hr [id number] ONCE IV Last administered on 02/14/17 11:13; Start 02/14/17 at 10:55; Stop 02/15/17 at 02:39; Status DC Alteplase, Recombinant 5.2 mg 5.2 mg ONCE ONCE IV Last administered on 11:33; Start 02/14/17 at 11:30; Stop 02/14/17 at 11:31; Status DC Alteplase, Recombinant/ Syringe / Bag (Activase Drip/ Syringe/Bag) 46.9999 ml @ 47 mls/hr ONCE ONCE IV Last administered on 02/14/17 11:37; Start 02/14/17 at 11:30; Stop 02/14/17 at 12:29; Status DC Gadodiamide (Omniscan Pf Inj) 10 ml STK-MED ONCE IV Last administered on t 13:22; Start 02/14/17 at 13:22; Stop 02/14/17 at 13:23; Status DC A/P Assessment and Plan A/P - acute CVA- s/p TPA continue with telemetry and neuro-checks- awaiting neurology follow-up and recommendations. sinus rhythm on telemetry- echo pending. will start statin after checking AST/ALT. consult PT/OT/ST. -arthritis/fibromyalgia; f/u as outpatient -DVT prophylaxis with SCD's transfer to telemetry when ok with neurology. Discharge Planning when cleared by neurology. Adele Howard MD Feb 15, 2017 08:52
[2017-02-15 11:43] LABS: ALT (GPT) 18 U/L (10-53); AST (GOT) 16 U/L (15-37)
[2017-02-15 11:45] LABS: HDL CHOLESTEROL 56.2 MG/DL (40.0-60.0); LDL CHOLESTEROL 97 MG/DL (0-99)
--- NOTE | 2017-02-15 12:15 | HHI.PR ---
Review/Management Diagnosis Acute left hemisphere CVA--sx completely resolved after iv TPA, only very small area of diffusion abnormality in left basal ganglia on MRI indicating a very small area of infarction Plan Follow up [address] and if negative will start asa 325 mg daily follow up echo start statin due to high LDL ok to transfer to floor Diagnosis/Plan: Subjective Subjective Comments No acute events reported strength is back to normal after iv TPA Allergies Allergies Coded Allergies No Known Allergies (Verified02/14/17) Exam I&O / VS 02/14/17 02/14/17 02/15/17 15:00 23:00 07:00 Intake Total 700 ml 389 ml Output Total 475 ml 425 ml Balance 225 ml -36 ml Intake Oral 100 ml IV Total 600 ml 389 ml Output Urine Total 475 ml 425 ml # Voids 1 1 # Bowel Movements 0 0 Vital Signs Date Time Temp Pulse Resp B/P Pulse Ox O2 Delivery O2 Flow Rate FiO2 02/15/17 10:00 82 02/15/17 08:00 69 02/15/17 07:00 98 Room Air 02/15/17 06:00 75 02/15/17 04:00 69 02/15/17 02:00 72 02/15/17 00:00 67 02/14/17 22:00 80 02/14/17 20:16 96 21 02/14/17 20:00 96 02/14/17 19:00 97 Room Air 02/14/17 18:00 76 02/14/17 16:21 97 21 02/14/17 16:00 74 02/14/17 14:00 95 Room Air 02/14/17 14:00 91 02/14/17 13:50 100 Nasal Cannula 2.00 02/14/17 13:30 97.8 81 16 118/69 100 Nasal Cannula 2 02/14/17 12:30 88 16 124/63 100 Nasal Cannula 2 Exam Comments alert, follow commands, speech normal CN 2-12 normal MOTOR 5/5 RUE and RLE, 5/5 LUE and LLE sensation--normal Objective Radiology Results [address] pending carotid US--no stenosis MRI brain--small left basal ganglia cva on diffusion imagies MRA unusual anatomy but no significant stenosis Micro and Labs Laboratory Tests Test 02/14/17 02/15/17 13:50 10:35 Nasal Screen MRSA (PCR) MRSA NOT DETECTED Aspartate Amino Transf 16 (AST/SGOT) Alanine Aminotransferase 18 (ALT/SGPT) Triglycerides Level 109 Cholesterol Level 175 LDL Cholesterol 97 HDL Cholesterol 56.2 Cholesterol/HDL Ratio 3.11 Diagnostic Tests ECHO--pending Neel Bustillos PhD Feb 15, 2017 12:15
--- NOTE | 2017-02-15 12:29 | RADRPT ---
EXAM DATE/TIME: 02/15/2017 12:01 [place] COMPARISON: MRI BRAIN W & W/O CONTRAST, February 14, 2017, 13:02. CT BRAIN W/O CONTRAST, February 14, 2017, 10:58. INDICATIONS : 24 hours post TPA. RADIATION DOSE: 45.90 CTDIvol (mGy) MEDICAL HISTORY : Cerebrovascular disease. SURGICAL HISTORY : None. ENCOUNTER: Subsequent ACUITY: 2 days PAIN SCALE: 0/10 LOCATION: cranial TECHNIQUE: Multiple contiguous axial images were obtained of the head. Using automated exposure control and adj ustment of the mA and/or kV according to patient size, radiation dose was kept as low as reasonably a chievable to obtain optimal diagnostic quality images. DICOM format image data is available electro nically for review and comparison. FINDINGS: CEREBRUM: The ventricles are normal for age. Small area of diminished attenuation in the posterior aspect of th e left basal ganglia corresponds to the area of diffusion restriction on the recent MR and is charact eristic of a lacunar type infarct. No extra-axial fluid collections are seen. POSTERIOR FOSSA: The cerebellum and brainstem are intact. The 4th ventricle is midline. The cerebellopontine angle i s unremarkable. EXTRACRANIAL: The visualized portion of the orbits is intact. SKULL: The calvaria is intact. No evidence of skull fracture. CONCLUSION: 1. Subtle but new area of diminished attenuation in the posterior aspect of the left basal ganglia ch aracteristic of a lacunar type infarct. 2. Otherwise negative. No acute intracranial hemorrhage. Apollo Dee MD on February 15, 2017 at 12:25 Board Certified Radiologist. This report was verified electronically.
[2017-02-15 12:45] LABS: HEMOGLOBIN A1a 1.1 %; HEMOGLOBIN A1b 1.7 %; HEMOGLOBIN Ao 84.9 %; HEMOGLOBIN LA1C 2.4 %; HEMOGLOBIN P3 3.9 %
[2017-02-15] MEDS: ASPIRIN 325 MG TAB PO SCH (14:48)
[2017-02-15] MEDS ORDERED: TEMAZEPAM 15 MG CAP PO PRN (18:00)
[2017-02-16] VITALS: BP 99/49; PULSE 84; RESP 18; TEMP 96.6; O2SAT 95
[2017-02-16 04:00] VITALS: BP 96/53; PULSE 76; RESP 18; TEMP 96.4; O2SAT 97
[2017-02-16 08:37] VITALS: BP 111/55; PULSE 76; RESP 17; TEMP 97.8; O2SAT 99
[2017-02-16] MEDS: ASPIRIN 325 MG TAB PO SCH (08:47)
[2017-02-16] MEDS ORDERED: ATORVASTATIN 10 MG TAB PO SCH (09:00)
[2017-02-16 12:05] VITALS: BP 120/57; PULSE 78; RESP 18; TEMP 96.8; O2SAT 97
--- NOTE | 2017-02-16 12:19 | ECHRPT ---
Indication: CVA/TIA CONCLUSIONS BP: 113 / 83 HR: 90 Rhythm: Sinus MEASUREMENTS (Male / Female) Normal Values Technical Quality:Good 2D ECHO LV Diastolic Diameter PLAX 4.2 cm 4.2 - 5.9 / 3.9 - 5.3 cm LV Systolic Diameter PLAX 3.4 cm IVS Diastolic Thickness 0.9 cm 0.6 - 1.0 / 0.6 - 0.9 cm LVPW Diastolic Thickness 0.7 cm 0.6 - 1.0 / 0.6 - 0.9 cm LV Relative Wall Thickness 0.4 LA Systolic Diameter LX 2.9 cm 3.0 - 4.0 / 2.7 - 3.8 cm M-MODE Aortic Root Diameter MM 2.8 cm AV Cusp Separation MM 2.1 cm DOPPLER Mitral E Point Velocity 62.2 cm/s Mitral A Point Velocity 64.2 cm/s Mitral E to A Ratio 1.0 TR Peak Velocity 191.0 cm/s TR Peak Gradient 14.6 mmHg FINDINGS LEFT VENTRICLE Normal left ventricular size. Wall thickness is normal. The left ventricular systolic function is low normal with an estimated ejection fraction in the rang e of 50- 55%. RIGHT VENTRICLE Normal right ventricular size and systolic function. LEFT ATRIUM The left atrial size is normal. RIGHT ATRIUM The right atrial size is normal. ATRIAL SEPTUM Thickened atrial septum is noted with morphological features most consistent with a lipomatous atria l septum. AORTA The aortic root and proximal ascending aorta are normal in size on limited imaging. MITRAL VALVE Structurally normal mitral valve. No mitral valve stenosis or regurgitation. AORTIC VALVE Trileaflet aortic valve. No aortic valve stenosis or regurgitation. TRICUSPID VALVE The estimated pulmonary arterial pressure is 20 mmHg. PULMONARY VALVE The pulmonary valve is not well visualized. VESSELS The inferior vena cava is normal in size. PERICARDIUM No pericardial effusion. Jak Herndon MD (Electronically Signed) Final Date:16 February 2017 12:19
--- NOTE | 2017-02-16 12:23 | HHI.PR ---
Subjective Remarks resting comfortably with no distress. no new complaints. d/w the RN and no acute issues over night. Objective Vitals Vital Signs Date Time Temp Pulse Resp B/P Pulse Ox O2 Delivery O2 Flow Rate FiO2 02/16/17 12:05 96.8 78 18 120/57 97 02/16/17 08:37 97.8 76 17 111/55 99 02/16/17 08:30 99 Room Air 02/16/17 04:00 96.4 76 18 96/53 97 02/16/17 00:00 96.6 84 18 99/49 95 02/15/17 20:00 99.2 81 18 105/58 94 02/15/17 18:00 90 18 109/58 98 02/15/17 16:00 98.6 76 13 113/83 99 02/15/17 16:00 76 02/15/17 14:00 67 I/O 02/15/17 02/15/17 02/15/17 02/16/17 02/16/17 02/16/17 07:00 15:00 23:00 07:00 15:00 23:00 Intake Total 389 ml 720 ml Output Total 425 ml 950 ml Balance -36 ml -230 ml Intake Oral 720 ml IV Total 389 ml Output Urine Total 425 ml 950 ml # Voids 1 2 1 1 # Bowel Movements 0 0 Result Diagram: 02/14/17 1050 Imaging Last Impressions Head CT 02/15/17 1130 Signed Impressions: Service Date/Time: Wednesday, February 15, 2017 12:01 - CONCLUSION: 1. Subtle but new area of diminished attenuation in the posterior aspect of the left basal ganglia characteristic of a lacunar type infarct. 2. Otherwise negative. No acute intracranial hemorrhage. Apollo Dee MD Head Magnetic Resonance Angiography 02/14/17 0000 Signed Impressions: Service Date/Time: Tuesday, February 14, 2017 13:02 - CONCLUSION: Normal examination. There is some unusual anatomy in regards to the left posterior cerebral artery. The left posterior vertebral artery extends anteriorly joining with the left posterior communicating artery which then contributes the majority of flow to the left posterior cerebral circulation. Ousmane Perry MD Carotid Artery Ultrasound 02/14/17 0000 Signed Impressions: Service Date/Time: Tuesday, February 14, 2017 12:30 - CONCLUSION: No hemodynamically significant stenosis identified in either carotid artery. Laci Zaman MD Brain MRI 02/14/17 0000 Signed Impressions: Service Date/Time: Tuesday, February 14, 2017 13:02 - CONCLUSION: 1. Small area of acute infarction left basal ganglia. 2. No midline shift or mass effect. Laci Zaman MD Objective Remarks GENERAL: This is a well-nourished, well-developed patient, in no apparent distress. CARDIOVASCULAR: Regular rate and regular rhythm without murmurs, gallops, or rubs. RESPIRATORY: Clear to auscultation. Breath sounds equal bilaterally. No wheezes , rales, or rhonchi. GASTROINTESTINAL: Abdomen soft, non-tender, nondistended. Normal, active bowel sounds MUSCULOSKELETAL: Extremities without clubbing, cyanosis, or edema. NEURO: Alert & Oriented x4 to person, place, time, situation. Moves all ext x4 Procedures none Medications and IVs Current Medications Sodium Chloride (NS 1000 ml Inj) 1,000 ml @ 70 mls/hr [id number] ONCE IV Last administered on 02/14/17 11:13; Start 02/14/17 at 10:55; Stop 02/15/17 at 02:39; Status DC Alteplase, Recombinant 5.2 mg 5.2 mg ONCE ONCE IV Last administered on 11:33; Start 02/14/17 at 11:30; Stop 02/14/17 at 11:31; Status DC Alteplase, Recombinant/ Syringe / Bag (Activase Drip/ Syringe/Bag) 46.9999 ml @ 47 mls/hr ONCE ONCE IV Last administered on 02/14/17 11:37; Start 02/14/17 at 11:30; Stop 02/14/17 at 12:29; Status DC Gadodiamide (Omniscan Pf Inj) 10 ml STK-MED ONCE IV Last administered on 13:22; Start 02/14/17 at 13:22; Stop 02/14/17 at 13:23; Status DC Atorvastatin Calcium (Lipitor) 10 mg DAILY PO Last administered on 02/16/17 08 :47; Start 02/16/17 at 09:00 Aspirin (Aspirin) 325 mg DAILY PO Last administered on 02/16/17 08:47; Start 02/15/17 at 14:00 Temazepam (Restoril) 15 mg HS PRN PO INSOMNIA Last administered on 02/15/17t 21: 54; Start 02/15/17 at 18:00 A/P Assessment and Plan A/P - acute CVA- s/p TPA continue aspirin and statin echo with EF 50%-55%. consulted PT/OT/ST. -arthritis/fibromyalgia; f/u as outpatient -DVT prophylaxis with SCD's Discharge Planning dc home today if cleared by neurology. see med list. f/u; pcp and neurology. d/w the patient and RN. Adele Howard MD Feb 16, 2017 12:23
[2017-02-16] MEDS ORDERED: ASPI325T PO (12:24)
[2017-02-16] MEDS ORDERED: ATOR40TA16 PO (12:24)
--- NOTE | 2017-02-16 12:26 | HHI.DCPOC ---
Discharge Care Plan Diagnosis: (1) CVA (cerebral vascular accident) Your Health Problems Are: Difficulty with ADL Goals to Promote Your Health * To prevent worsening of your condition and complications * To maintain your health at the optimal level Directions to Meet Your Goals Take your medications as prescribed Follow your dietary instruction Follow activity as directed Keep your appointments as scheduled Take your immunizations and boosters as scheduled If your symptoms worsen call your PCP, if no PCP go to Urgent Care Center or Emergency Room Smoking is Dangerous to Your Health. Avoid second hand smoke Call the 24-hour hour crisis hotline for domestic abuse at Adele Howard MD Feb 16, 2017 12:26
--- NOTE | 2017-02-16 12:26 | HHI.DS ---
Discharge Summary Admission Date Feb 14, 2017 at 12:37 Discharge Date: Feb 16, 2017 Admitting Diagnosis stroke (1) CVA (cerebral vascular accident) ICD Code: I63.9 Diagnosis: Principal Procedures none Brief History - From Admission HPI This patient presented by [facility] with a chief complaint of acute right sided weakness. She was driving her car when she noticed right arm weakness . Estimated onset of symptoms was between 10 and 10:15 AM. Patient reports that she does not take any anticoagulants. No noted inciting event. No exacerbating or relieving factors. Patient was evaluated by neurology Dr. Bustillos in the ER. She underwent thrombolysis with TPA while in the emergency room and subsequently underwent MRI/MRA brain and was transferred to the ICU. I evaluated the patient immediately following arrival to the ICU. At that time she is resting in bed not in any acute distress. History is obtained by reviewing records and discussion with patient, ER physician and nursing staff. At the time of my evaluation patient stated that her right leg was already feeling back to normal and her power in the right upper extremity had significantly improved since thrombo-lysis however she still had some tingling sensation in the right upper extremity. History PFSH Past Medical History Arthritis: No Autoimmune Disease: No Blood Disorders: No Anxiety: Yes Depression: Yes Cancer: No Cardiovascular Problems: No Cerebrovascular Accident: No Diabetes: No Diminished Hearing: No Endocrine: Yes Fibromyalgia: Yes Gastrointestinal Disorders: Yes Genitourinary: Yes Headaches: Yes Hepatitis: No Hiatal Hernia: No Immune Disorder: No Musculoskeletal: Yes (DEGENERATIVE DISC DISEASE PER PT,NECK BACK , ARTHRTIS) Neurologic: Yes (NUMBNESS AND TINGLING) Psychiatric: No Reproductive: No Respiratory: No Migraines: Yes Myocardial Infarction: No Renal Failure: No Seizures: Yes (one during 32 years ago) Thyroid Disease: Yes Ulcer: No Menopausal: Yes Past Surgical History Abdominal Surgery: Yes (APPY, OVARY RUPTURED AND REPAIRED) Appendectomy: Yes Cardiac Surgery: No Ear Surgery: No Endocrine Surgery: No Eye Surgery: No Genitourinary Surgery: Yes (pilonidal cysts) Gynecologic Surgery: No Oral Surgery: No Thoracic Surgery: No Other Surgery: Yes Social History Alcohol Use: Yes (OCC) Tobacco Use: Yes (1 PPD) Substance Use: No Allergies-Medications Allergies-Medications (Allergen,Severity, Reaction): Coded Allergies: No Known Allergies (Verified , 02/14/17) Reported Meds & Prescriptions Reported Meds & Active Scripts Active Flexeril (Cyclobenzaprine HCl) 10 Mg Tab 10 Mg PO TID PRN Reported Restoril (Temazepam) 15 Mg Cap 15 Mg PO HS PRN Xanax (Alprazolam) 0.25 Mg Tab 0.25 Mg PO TID PRN Ibuprofen 800 Mg Tab 800 Mg PO Q8H PRN ROS Review of Systems Except as stated in HPI: all other systems reviewed are Neg Eyes: No: Blurred Vision HENT: No: Headaches Cardiovascular: No: Chest Pain or Discomfort Respiratory: No: Shortness of Breath Gastrointestinal: No: Nausea, Vomiting Neurologic: Positive: Weakness, Focal Abnormalities, Slurred Speech (EMS reported some slurred speech), No: Syncope, Headache, Change in Mentation, Incontinence, Seizures CBC/BMP: 02/14/17 1050 Significant Findings Laboratory Tests Test 02/14/17 02/14/17 10:50 11:11 Bedside Potassium 5.0 MMOL/L (3.5-4.9) Bedside Glucose 102 MG/DL (60-95) Troponin I LESS THAN 0.02 NG/ML (0.02-0.05) LDL Cholesterol 101 MG/DL (0-99) Urine Nitrite POS (NEG) Urine Leukocyte Esterase TRACE (NEG) Urine Bacteria OCC /hpf (NONE) Imaging Last Impressions Head CT 02/15/17 1130 Signed Impressions: Service Date/Time: Wednesday, February 15, 2017 12:01 - CONCLUSION: 1. Subtle but new area of diminished attenuation in the posterior aspect of the left basal ganglia characteristic of a lacunar type infarct. 2. Otherwise negative. No acute intracranial hemorrhage. Apollo Dee MD Head Magnetic Resonance Angiography 02/14/17 0000 Signed Impressions: Service Date/Time: Tuesday, February 14, 2017 13:02 - CONCLUSION: Normal examination. There is some unusual anatomy in regards to the left posterior cerebral artery. The left posterior vertebral artery extends anteriorly joining with the left posterior communicating artery which then contributes the majority of flow to the left posterior cerebral circulation. Ousmane Perry MD Carotid Artery Ultrasound 02/14/17 0000 Signed Impressions: Service Date/Time: Tuesday, February 14, 2017 12:30 - CONCLUSION: No hemodynamically significant stenosis identified in either carotid artery. Laci Zaman MD Brain MRI 02/14/17 0000 Signed Impressions: Service Date/Time: Tuesday, February 14, 2017 13:02 - CONCLUSION: 1. Small area of acute infarction left basal ganglia. 2. No midline shift or mass effect. Laci Zaman MD PE at Discharge GENERAL: This is a well-nourished, well-developed patient, in no apparent distress. CARDIOVASCULAR: Regular rate and regular rhythm without murmurs, gallops, or rubs. RESPIRATORY: Clear to auscultation. Breath sounds equal bilaterally. No wheezes , rales, or rhonchi. GASTROINTESTINAL: Abdomen soft, non-tender, nondistended. Normal, active bowel sounds MUSCULOSKELETAL: Extremities without clubbing, cyanosis, or edema. NEURO: Alert & Oriented x4 to person, place, time, situation. Moves all ext x4 Hospital Course - acute CVA- s/p TPA continue aspirin and statin echo with EF 50-55%. consulted PT/OT/ST. -arthritis/fibromyalgia; f/u as outpatient -DVT prophylaxis with SCD's Pt Condition on Discharge: Good Discharge Disposition: Discharge Home Discharge Time: <= 30 minutes Discharge Instructions DIET: Follow Instructions for: Heart Healthy Diet, Low Fat Diet Activities you can perform: Regular-No Restrictions Follow up Referrals: Neurology PCP Follow-up New Medications: Atorvastatin (Atorvastatin) 40 Mg Tab 40 MG PO HS Cholesterol Management #30 Ref 0 TAB Aspirin (Aspirin) 325 Mg Tab 325 MG PO DAILY cva Days 30 Ref 0 TAB Continued Medications: Alprazolam (Xanax) 0.25 Mg Tab 0.25 MG PO TID PRN ANXIETY Ref 0 TAB Cyclobenzaprine (Flexeril) 10 Mg Tab 10 MG PO TID PRN pain #12 Ref 0 TAB Temazepam (Restoril) 15 Mg Cap 15 MG PO HS PRN INSOMNIA #30 Ref 0 CAP Discontinued Medications: Ibuprofen (Ibuprofen) 800 Mg Tab 800 MG PO Q8H PRN PAIN Ref 0 TAB Adele Howard MD Feb 16, 2017 12:26
== END 2017-02-16 15:48 | disposition home or self-care (01) | DRG 63 ==
LOC: NEPC 10:47 → NEDA 12:37 → N03B 13:41 → N05B 02-15 17:24
PROVIDERS: ADMIT Internal Medicine; ATTEND Internal Medicine
DX: I63.8 Other cerebral infarction (principal); F32.9 Major depressive disorder, single episode, unspecified; G83.21 Monoplegia of upper limb affecting right dominant side; F41.9 Anxiety disorder, unspecified; M79.7 Fibromyalgia; G43.909 Migraine, unspecified, not intractable, without status migrainosus; F17.210 Nicotine dependence, cigarettes, uncomplicated; M19.90 Unspecified osteoarthritis, unspecified site; R29.704 NIHSS score 4; G47.00 Insomnia, unspecified
CPT/HCPCS: 70450; 70544; 70553; 80061; 80307; 81001; 82435; 82550; 82565; 82947; 83036; 84132; 84295; 84450; 84460; 84484; 84520; 85025; 85384; 85610; 85730; 86850; 86900; 86901; 87641; 93005; 93306; 93880; 96374; 96375; A9579; J2997; J7030; P9612

== ENCOUNTER 2017-03-12 12:21 | Inpatient (IN) | payer BC ==
[~2017-03-12] VITALS: Ht 154.9 cm; Wt 56.1 kg
[2017-03-12 12:21] VITALS: BP 125/72; PULSE 100; RESP 16; TEMP 97.8; O2SAT 98
[~2017-03-12 12:21] MED LIST changes: +ASPI325T PO; +ATOR40TA16 PO; -IBUP800T23 PO; -IMIT50TA PO; -LEVO25TA4 PO
[2017-03-12] MEDS ORDERED: BUPR100T4 PO (12:31)
[2017-03-12] MEDS ORDERED: HYDR-3534 PO (12:31)
[2017-03-12] MEDS ORDERED: ALEN1TAB48 PO (12:31)
[2017-03-12] MEDS ORDERED: VARE1 PO (12:31)
[2017-03-12] MEDS ORDERED: SODIUM CHLOR 0.9% 1000 ML INJ 1,000 ML IV ONE (12:35)
[2017-03-12] MEDS ORDERED: SODIUM CHLOR 0.9% 250 ML INJ 250 ML IV ONE (12:45)
--- NOTE | 2017-03-12 12:45 | PD ---
HPI Chief Complaint: Neuro Symptoms/ Deficits Time Seen by Provider: 12:23 Travel History International Travel<30 days: No Contact w/Intl Traveler<30days: No Traveled to known affect area: No History of Present Illness HPI 61-year-old female came to the emergency room with history of left-sided facial heaviness and feels like it's drooping and right upper extremity heaviness. Patient says she was at her work when she started feeling like this at around 11 to 11:30 AM. She has had a recent history of stroke and hence she came to the emergency room soon. Patient had received TPA last month when she was here for sure stroke. No history of chest pain, no history of shortness of breath or syncopal episode. Vital signs were within normal limits. Patient takes one full-strength aspirin every day. PFSH Past Medical History Narrative Medical List of her past medical, surgical, social family history was reviewed from the nursing note. Arthritis: No Autoimmune Disease: No Blood Disorders: No Anxiety: Yes Depression: Yes Heart Rhythm Problems: No Cancer: No Cardiovascular Problems: No High Cholesterol: Yes (This admission) Chest Pain: No Congestive Heart Failure: No Cerebrovascular Accident: No Diabetes: No Diminished Hearing: No Endocrine: Yes Fibromyalgia: Yes Gastrointestinal Disorders: Yes Genitourinary: Yes Headaches: Yes Hepatitis: No Hiatal Hernia: No Immune Disorder: No Kidney Stones: Yes Musculoskeletal: Yes (DEGENERATIVE DISC DISEASE PER PT,NECK BACK , ARTHRTIS) Neurologic: Yes (NUMBNESS AND TINGLING ()) Psychiatric: No Reproductive: No Respiratory: No Migraines: Yes Myocardial Infarction: No Renal Failure: No Seizures: Yes (one during 32 years ago) Thyroid Disease: Yes (Borderline hyperactive thyroid) Ulcer: No Tetanus Vaccination: < 5 Years Influenza Vaccination: Yes Menopausal: Yes Past Surgical History Abdominal Surgery: Yes (APPY, OVARY RUPTURED AND REPAIRED) Appendectomy: Yes Cardiac Surgery: No Ear Surgery: No Endocrine Surgery: No Eye Surgery: No Genitourinary Surgery: Yes (pilonidal cysts) Gynecologic Surgery: No Oral Surgery: No Thoracic Surgery: No Other Surgery: Yes Social History Alcohol Use: Yes (OCC) Tobacco Use: Yes (<1 PPD) Substance Use: No Allergies-Medications (Allergen,Severity, Reaction): Coded Allergies: No Known Allergies (Verified , 03/12/17) Comments No known drug allergies. Reported Meds & Prescriptions Reported Meds & Active Scripts Active Atorvastatin (Atorvastatin Calcium) 40 Mg Tab 40 Mg PO HS Reported Alendronate (Alendronate Sodium) 70 Mg Tab 70 Mg PO Q7D Restoril (Temazepam) 15 Mg Cap 15 Mg PO HS PRN Xanax (Alprazolam) 0.25 Mg Tab 0.25 Mg PO TID PRN Narrative Medication List of her home medications reviewed from the nursing note. Review of Systems Except as stated in HPI: all other systems reviewed are Neg Physical Exam Narrative GENERAL: Awake, alert, anxious SKIN: Focused skin assessment warm/dry. HEAD: Atraumatic. Normocephalic. EYES: Pupils equal and round. No scleral icterus. No injection or drainage. ENT: No nasal bleeding or discharge. Mucous membranes pink and moist. NECK: Trachea midline. No JVD. CARDIOVASCULAR: Regular rate and rhythm. No murmur appreciated. RESPIRATORY: No accessory muscle use. Clear to auscultation. Breath sounds equal bilaterally. GASTROINTESTINAL: Abdomen soft, non-tender, nondistended. Hepatic and splenic margins not palpable. MUSCULOSKELETAL: No obvious deformities. No clubbing. No cyanosis. No edema. NEUROLOGICAL: Awake and alert. No obvious cranial nerve deficits. Normal speech. NIH stroke score of 1 for slight right upper extremity pronator drift PSYCHIATRIC: Appropriate mood and affect; insight and judgment normal. Data Data Last Documented VS Vital Signs Date Time Temp Pulse Resp B/P Pulse Ox O2 Delivery O2 Flow Rate FiO2 03/12/17 14:00 88 16 108/60 99 Nasal Cannula 2 03/12/17 12:21 97.8 Orders Diet Npo (03/12/17 Lunch) Activity Bed Rest (03/12/17 ) Electrocardiogram (03/12/17 ) I-Stat Creatinine (03/12/17 12:35) I-Stat Profile (03/12/17 12:35) Prothrombin Time / Inr (Pt) (03/12/17 12:35) Act Partial Throm Time (Ptt) (03/12/17 12:35) Complete Blood Count With Diff (03/12/17 12:35) Fibrinogen (03/12/17 12:35) Creatine Kinase (Cpk) (03/12/17 12:35) Troponin I (03/12/17 12:35) Type And Screen (03/12/17 12:35) Ct Brain W/O Iv Contrast(Rout) (03/12/17 ) Beta Hcg (Quant/Titer) (03/12/17 12:35) Consult Neurology (03/12/17 ) Blood Glucose (03/12/17 12:35) Ecg Monitoring (03/12/17 12:35) Neuro Checks Q2HX12,Q4H (03/12/17 12:35) Nursing Bedside Swallow Assess .ONCE (03/12/17 12:35) Iv Access Insert/Monitor (03/12/17 12:35) NPO (03/12/17 12:35) Oximetry (03/12/17 12:35) Oxygen Administration (03/12/17 12:35) Sodium Chlor 0.9% 1000 Ml Inj (Ns 1000 M (03/12/17 12:35) Resp Oxygen Cale C Titrat 1-4 L (03/12/17 12:35) Cath For Specimen (03/12/17 12:35) Sodium Chlor 0.9% 250 Ml Inj (Ns 250 Ml (03/12/17 12:45) (Hub Use Only)Inp Phy Cons/Ref (03/12/17 ) Westergren Sedimentation Rate (03/12/17 13:22) Rapid Plasma Regin (Rpr) W Ttr (03/12/17 13:22) Deedee Screen (03/12/17 13:22) Thyroid Stimulating Hormone (03/12/17 13:22) Eeg Study (03/12/17 13:22) Holter Monitor Recording (03/12/17 13:22) Jewel Hole Cornerer / Telemetry SHENG.Q8H (03/12/17 13:22) ^ Seizure Precautions (03/12/17 13:22) Mra Brain W/O Contrast (Cow) (03/12/17 13:22) Mra Carotids W Contrast (03/12/17 13:22) Scd&Teds Bilateral/Knee High SHENG.QSHIFT (03/12/17 13:22) [place] (03/12/17 13:22) Aspirin Ec (Ecotrin Ec) (03/12/17 13:30) Sodium Chlor 0.9% 1000 Ml Inj (Ns 1000 M (03/12/17 13:22) Acetaminophen (Tylenol) (03/12/17 13:30) Acetaminophen (Tylenol) (03/12/17 13:30) Drug Screen, Random Urine (03/12/17 13:25) Admit To Inpatient (03/12/17 ) Nih Stroke Scale - Nihss .On admission and discharge (03/12/17 14:04) Neuro Checks Q4H (03/12/17 14:04) Ot Request For Service (03/12/17 14:04) Consult Pt Eval & Treat (03/12/17 14:04) Speech Therapy Consult-Eval/Tx (03/12/17 14:04) Case Management Consult (03/12/17 ) Activity Bed Rest (03/12/17 14:04) Nursing Bedside Swallow Assess .ONCE (03/12/17 14:04) Scd Bilateral/Knee High SHENG.QSHIFT (03/12/17 14:04) Diet Npo (03/12/17 Dinner) Hemoglobin (Hgb) A1c (03/12/17 14:04) Lipid Profile (03/13/17 06:00) Resp Oxygen Cale C Titrat 1-4 L (03/12/17 ) ^ Hold Medication (03/12/17 14:04) Sodium Chloride 0.9% Flush (Ns Flush) (03/12/17 21:00) Sodium Chloride 0.9% Flush (Ns Flush) (03/12/17 14:15) Sodium Chlor 0.9% 1000 Ml Inj (Ns 1000 M (03/12/17 14:04) Bedside Glucose SHENG.AC&HS (03/12/17 14:04) ^ Discontinue Insulin Orders (03/12/17 14:04) Insulin Aspart Supplemtl Scale (Novolog (03/12/17 16:00) Dextrose 50% In Cliff (Vial) Inj (D50w (Vi (03/12/17 14:15) Glucagon Inj (Glucagon Inj) (03/12/17 14:15) Consult Rehab Medicine (03/12/17 14:04) Jewel Hole Cornerer / Telemetry SHENG.Q8H (03/12/17 14:04) Consult Stoke Navigator (03/12/17 ) Enoxaparin Inj (Lovenox Inj) (03/12/17 15:00) Scd Bilateral/Knee High SHENG.BID (03/12/17 14:04) Inpatient Certification (03/12/17 ) Admit Order (Ed Use Only) (03/12/17 14:06) Atorvastatin (Lipitor) (03/12/17 21:00) Bupropion (Wellbutrin) (03/12/17 21:00) Labs Laboratory Tests Test 03/12/17 12:30 White Blood Count 8.3 TH/MM3 Red Blood Count 4.61 MIL/MM3 Hemoglobin 15.2 GM/DL Bedside Hemoglobin 15.6 G/DL Hematocrit 44.6 % Bedside Hematocrit 46.0 % Mean Corpuscular Volume 96.8 FL Mean Corpuscular Hemoglobin 32.9 PG Mean Corpuscular Hemoglobin 34.0 % Concent Red Cell Distribution Width 13.0 % Platelet Count 275 TH/MM3 Mean Platelet Volume 7.7 FL Neutrophils (%) (Auto) 65.5 % Lymphocytes (%) (Auto) 24.7 % Monocytes (%) (Auto) 6.7 % Eosinophils (%) (Auto) 2.2 % Basophils (%) (Auto) 0.9 % Neutrophils # (Auto) 5.5 TH/MM3 Lymphocytes # (Auto) 2.1 TH/MM3 Monocytes # (Auto) 0.6 TH/MM3 Eosinophils # (Auto) 0.2 TH/MM3 Basophils # (Auto) 0.1 TH/MM3 CBC Comment DIFF FINAL Differential Comment Erythrocyte Sedimentation Rate 4 mm/hr Prothrombin Time 10.3 SEC Prothromb Time International 0.9 RATIO Ratio Activated Partial 27.6 SEC Thromboplast Time Fibrinogen 365 mg/dL Bedside Sodium 138 MMOL/L Bedside Potassium 4.3 MMOL/L Bedside Chloride 102 MMOL/L Bedside Blood Urea Nitrogen 37 MG/DL Bedside Creatinine 0.7 MG/DL Bedside Glucose 123 MG/DL Hemoglobin A1c 5.4 % Total Creatine Kinase 72 U/L Troponin I LESS THAN 0.02 NG/ML Thyroid Stimulating Hormone 2.000 uIU/ML 3rd Gen Human Chorionic Gonadotropin, 4 MIU/ML Quant Blood Type O POSITIVE Antibody Screen NEGATIVE MDM Medical Decision Making Medical Screen Exam Complete: Yes Emergency Medical Condition: Yes Medical Record Reviewed: Yes Interpretation(s) Twelve-lead EKG was reviewed by me. Normal sinus rhythm, normal axis, nonspecific ST-T wave changes. Heart rate of 91 bpm. Differential Diagnosis CVA, stroke, intracranial hemorrhage, TIA Narrative Course 2:30 PM a stroke alert was called based on her symptoms and recent past medical history. I discussed the case with Dr. Hernandez who agreed that given her past TPA administration patient cannot get another TPA and hence is not a candidate. CT of the head was within normal limits. Blood test results were within normal limit. Dr. Hernandez came in saw the patient and ordered MRI and MRA. Patient was admitted to the hospitalist. Critical Care Narrative Aggregate critical care time was 30 minutes. Time to perform other separately billable procedures was not included in the critical care time. My time did not include minutes spent treating any other patients simultaneously or on activities that did not directly contribute to the patient's treatment. The services I provided to this patient were to treat and/or prevent clinically significant deterioration that could result in: Stroke alert I provided critical care services requiring my management, as noted below: Chart data review, documentation time, medication orders and management, vital sign assessments/reviewing monitor data, ordering and reviewing lab tests, ordering and interpreting/reviewing x-rays and diagnostic studies, care of the patient and discussion of the patient with the admitting physicians. Procedures EKG Prior to Arrival: No Physician Communication Physician Communication Dr. Hernandez Diagnosis Primary Impression: CVA (cerebral vascular accident) Qualified Code: I63.9 - Cerebrovascular accident (CVA), unspecified mechanism Admitting Information Admitting Physician Requests: Admit Scripts Clopidogrel 75 Mg Tab75 Mg PO DAILY #30 TAB Ref 0 Prov:Nav Rasheed MD 03/13/17 Prednisone (48) 10 mg tab Dose Pack 10 Mg Dspk10 Mg PO DIRECTED #1 DSPK Ref 0 Prov:Nav Rasheed MD 03/13/17 Levetiracetam (Keppra)500 Mg Nis909 Mg PO Q12HR 30 Days Prov:Nav Rasheed MD 03/13/[address] (Aspirin EC)81 Mg Tabdr81 Mg PO DAILY 30 Days Ref 0 Prov:Nav Rasheed MD 03/13/17 Azar Shelton MD Mar 12, 2017 12:45
[2017-03-12 13:00] VITALS: BP 118/68; PULSE 86; RESP 16; O2SAT 98
[2017-03-12 13:01] VITALS: RESP 16; O2SAT 99
[2017-03-12 13:05] LABS: I-STAT POTASSIUM 4.3 MMOL/L (3.5-4.9); I-STAT SODIUM 138 MMOL/L (138-146)
--- NOTE | 2017-03-12 13:06 | RADRPT ---
EXAM DATE/TIME: 03/12/2017 12:51 [facility] COMPARISON: CT BRAIN W/O CONTRAST, February 15, 2017, 12:01. INDICATIONS : Headache left facial numbness. RADIATION DOSE: 28.55 CTDIvol (mGy) This report was called by Dr. Villarreal to Dr. Shelton at 1: 02 PM MEDICAL HISTORY : Unable to obtain SURGICAL HISTORY : Unable to obtain ENCOUNTER: Initial ACUITY: 1 day PAIN SCALE: 0/10 LOCATION: cranial TECHNIQUE: Multiple contiguous axial images were obtained of the head. Using automated exposure control and adj ustment of the mA and/or kV according to patient size, radiation dose was kept as low as reasonably a chievable to obtain optimal diagnostic quality images. DICOM format image data is available electro nically for review and comparison. FINDINGS: CEREBRUM: The ventricles are normal. No evidence of midline shift, mass lesion, hemorrhage or acute infarction . No extra-axial fluid collections are seen. POSTERIOR FOSSA: The cerebellum and brainstem demonstrate no acute finding. The 4th ventricle is midline. The cerebe llopontine angle is unremarkable. EXTRACRANIAL: Visualized sinuses are clear. SKULL: The calvaria is intact. No evidence of skull fracture. CONCLUSION: No acute intracranial abnormality is identified. Kris Villarreal MD on March 12, 2017 at 13:01 Board Certified Radiologist. This report was verified electronically.
[2017-03-12 13:09] LABS: AUTOMATED NEUTROPHIL # 5.5 TH/MM3 (1.8-7.7); BASOPHIL # 0.1 TH/MM3 (0-0.2); BASOPHIL % 0.9 % (0.0-2.0); EOSINOPHIL # 0.2 TH/MM3 (0-0.4); EOSINOPHIL % 2.2 % (0.0-4.0); HEMATOCRIT 44.6 % (35.0-46.0); HEMO FLAGS DIFF FINAL; LYMPH % 24.7 % (9.0-44.0); LYMPHOCYTE # 2.1 TH/MM3 (1.0-4.8); MEAN CELL VOLUME 96.8 FL (80.0-100.0); MEAN CORPUSCULAR HEMOGLOBIN 32.9 PG (27.0-34.0); MONO % 6.7 % (0.0-8.0); NEUT % 65.5 % (16.0-70.0); PLATELET COUNT 275 TH/MM3 (150-450); RED BLOOD COUNT 4.61 MIL/MM3 (4.00-5.30); WHITE BLOOD COUNT 8.3 TH/MM3 (4.0-11.0)
[2017-03-12 13:14] LABS: APTT (PATIENT) 27.6 SEC (24.3-30.1); INTERNATIONAL NORMALIZED RATIO 0.9 RATIO; PROTHROMBIN TIME - PATIENT 10.3 SEC (9.8-11.6)
[2017-03-12] MEDS ORDERED: SODIUM CHLOR 0.9% 1000 ML INJ 1,000 ML IV SCH (13:22)
[2017-03-12] MEDS ORDERED: ACETAMINOPHEN 325 MG TAB PO ONE (13:30)
[2017-03-12] MEDS: ASPIRIN EC 325 MG TABEC PO SCH ×2 (13:30→14:39)
[2017-03-12 13:31] LABS: BETA HCG QUANT 4 MIU/ML (0-5)
[2017-03-12 13:32] LABS: CREATINE KINASE 72 U/L (26-192)
[2017-03-12 14:00] VITALS: BP 108/60; PULSE 88; RESP 16; O2SAT 99
[2017-03-12] MEDS: SODIUM CHLOR 0.9% 1000 ML INJ 1,000 ML IV SCH (14:04)
[2017-03-12] MEDS ORDERED: SODIUM CHLORIDE 0.9% FLUSH 5 ML FLUSH IV FLUSH PRN (14:15)
[2017-03-12] MEDS ORDERED: DEXTROSE 50% IN WATER 50 ML VIAL(D50) IV PUSH PRN (14:15)
[2017-03-12] MEDS ORDERED: GLUCAGON 1 MG/ML VIAL OTHER PRN (14:15)
--- NOTE | 2017-03-12 14:20 | MB ---
cc: SIMSJORDAN DATE OF CONSULTATION: 03/12/2017 HISTORY OF PRESENT ILLNESS A 61-year-old right-handed woman with a history of hypercholesterolemia, hypothyroidism, migraines, about two a month on the right side of her head, about a month ago was in with a stroke here, was started on 325 aspirin and a cholesterol med which she has been taking every day. She has been cutting back on her cigarette smoking and yesterday did not smoke at all but has been smoking since her stroke. Nevertheless, initially she had some right arm heaviness and leg heaviness when she had come in with the stroke last time. Evidently was at a different hospital than this one and she presented about 11:30 today when she was at work, had onset of a headache on the left side and then she felt like her right arm was a bit heavier than it had been as she had come back to normal and then she felt like her left side of her face was little heavy and the arm weakness was not as bad as it was initially and subsequently stroke alert was called but her deficit was minimal and recent stroke as a result was not given any TPA. REVIEW OF SYSTEMS She denies any history of hypertension, diabetes, [place], CABG, stent, angioplasty, atrial fibrillation, coumadin, renal, hepatic, pulmonary disease, lupus, ulcer, cancer, seizure. SOCIAL HISTORY She is still smoking and I have asked her to quit. Occasionally has a drink. Lives by herself. FAMILY HISTORY Family history is negative for cancer, negative for seizure. Positive stroke in her mother. Postive for arterial disease in her father. MEDICATIONS She is on: 1. Alendronate. 2. Lortab. 3. Chantix. 4. Wellbutrin. 5. Restoril. 6. Xanax. 7. 325 aspirin. 8. Atorvastatin. 9. Flexeril. PHYSICAL EXAMINATION VITAL SIGNS: She is in sinus rhythm, 116, 125/72. NECK: There were no carotid bruits. HEART: Heart was regular rhythm. I do not detect a murmur. NEURO: Pupils are equal. Visual mast are full. Extraocular movements intact without nystagmus. Face was symmetric with some slight decreased sensation about 50% on the right V2-3 distribution compared to V1 which was normal. Normal pinprick on the left. The face moves symmetrically. Tongue was midline. There is no drift. Normal strength in upper and lower extremities bilaterally. A little bit of give-way weakness on the right arm but normal strength when best tested. Normal strength bilateral lower extremities. Toes were down-going on the left, equivocal on the right to withdrawing. Pinprick was intact in the arms and legs bilaterally. She is not ataxic on [id number]. Speech is fluent. She is not aphasic. No facial droop. LABORATORY DATA CBC is normal. UA negative. Basic metabolic profile is normal. IMAGING STUDIES CAT scan of the brain done in 2016 for headache was read as negative. MRI of the brain here was read as nothing acute. Review of the films, a small with probably lacunar infarct left periventricular high up, likely subacute. IMPRESSION I think unlikely it is a new stroke here. We will check an MRI of the brain. Will have to get the records from her past workup at the other hospital. Will just continue her on her aspirin, give her some IV hydration here. We will know more after the MRI is done. Will switch her to Plavix at this time. MD ALESHIA Henry/OUSMANE /1:16 PM /1:45 PM
[2017-03-12 15:00] VITALS: BP 110/62; PULSE 88; RESP 16; O2SAT 99
[2017-03-12] MEDS ORDERED: ENOXAPARIN SODIUM 40 MG/0.4 ML SYRINGE SQ SCH (15:00)
[2017-03-12] MEDS: CLOPIDOGREL 75 MG TAB PO SCH (15:22)
[2017-03-12] MEDS: INSULIN ASPART SUPPLEMENTAL SCALE SQ SCH ×2 (16:00→20:56)
--- NOTE | 2017-03-12 16:14 | MG ---
cc: QUINN BUSTILLOS Lab No: [id number] Date: 03/12/17 Age: 61 Sex: F Race: TECHNIQUE 17 channel EEG. DESCRIPTION The background rhythm reveals symmetrical alpha rhythm. Frequency is 8-10 Hz, amplitude is 20-30 microvolts. There does appear to be some sharp activity mainly over the left hemisphere, parietal and temporal areas. On a couple of instances there is some phase reversal. No other lateralizing features are identified. Photic stimulation results in a normal driving response. INTERPRETATION Abnormal study. There is some sharp activity over the left hemisphere with phase reversal. Quinn Bustillos MD RADHA/THA /3:42 PM /4:00 PM
[2017-03-12 16:28] LABS: HEMOGLOBIN A1a 1.3 %; HEMOGLOBIN A1b 0.8 %; HEMOGLOBIN Ao 81.6 %; HEMOGLOBIN F 4.5 %; HEMOGLOBIN LA1C 1.8 %; HEMOGLOBIN P3 3.4 %
[2017-03-12] MEDS ORDERED: GADODIAMIDE PF 287 MG/ML 20 ML VIAL (for RAD MRI) IV ONE (19:40)
[2017-03-12 20:00] VITALS: BP 116/56; PULSE 77; RESP 18; TEMP 97.5; O2SAT 99
--- NOTE | 2017-03-12 20:11 | RADRPT ---
EXAM DATE/TIME: 03/12/2017 19:09 [facility] COMPARISON: MRI BRAIN W & W/O CONTRAST, February 14, 2017, 13:02. INDICATIONS : CVA. CONTRAST: 20 cc Omniscan (gadodiamide) IV MEDICAL HISTORY : SURGICAL HISTORY : Appendectomy. Fusion, cervical. ENCOUNTER: Subsequent ACUITY: 1 day PAIN SCORE: 3/10 LOCATION: cranial TECHNIQUE: Multiplanar, multisequence MRI of the brain was performed both prior to and following the administrat ion of paramagnetic contrast. FINDINGS: CEREBRUM: Prior MRI had demonstrated acute infarction in the left thalamus and basal ganglia. On today's exami nation, no residual restricted diffusion seen. There are 2 focal areas of T1 and T2 prolongation at the site of infarction, characteristic of expected evolution. No abnormal enhancement. The ventricl es are normal for age. No evidence of midline shift, mass lesion, hemorrhage or acute infarction. N o extraaxial fluid collections are seen. The pituitary gland and suprasellar cistern are normal in c onfiguration. WHITE MATTER: A few scattered areas of T2 prolongation in the supratentorial white matter are stable in appearance. POSTERIOR FOSSA: The cerebellum and brainstem are intact. The 4th ventricle is midline. The cerebellopontine angle is unremarkable. The cerebellar tonsils are normal in position. DIFFUSION IMAGING: No focal areas of restricted diffusion are seen. No evidence of acute infarction. EXTRACRANIAL: The visualized portions of the orbits and paranasal sinuses are unremarkable. POST-CONTRAST: No abnormal areas of parenchymal or dural enhancement. No evidence of blood-brain barrier breakdown. CONCLUSION: Expected evolution of the left basal ganglia infarction, now in subacute to chronic phase. No new fi ndings. Claus Guevara MD on March 12, 2017 at 20:02 Board Certified Radiologist. This report was verified electronically.
[2017-03-12] MEDS: ACETAMINOPHEN 325 MG TAB PO PRN (20:33)
[2017-03-12] MEDS ORDERED: buPROPion HCL 100 MG TAB PO SCH (21:00)
[2017-03-12] MEDS ORDERED: SODIUM CHLORIDE 0.9% FLUSH 5 ML FLUSH IV FLUSH SCH (21:00)
[2017-03-12] MEDS ORDERED: ATORVASTATIN 40 MG TAB PO SCH (21:00)
[2017-03-12 21:36] LABS: AMPHETAMINE, URINE NEG (NEG); BARBITURATES, URINE NEG (NEG); COCAINE, URINE NEG (NEG)
--- NOTE | 2017-03-12 21:39 | RADRPT ---
EXAM DATE/TIME: 03/12/2017 19:09 [facility] COMPARISON: MRI BRAIN W & W/O CONTRAST, March 12, 2017, 19:09. MRA BRAIN W/O CONTRAST, February 14, 2017, 13:02. INDICATIONS : CVA. MEDICAL HISTORY : None. SURGICAL HISTORY : Appendectomy. Fusion, cervical. ENCOUNTER: Subsequent ACUITY: 1 day PAIN SCORE: 3/10 LOCATION: cranial Please note a normal MRA of the brain does not entirely exclude the possibility of a small aneurysm, nor the possibility of distal intracranial vessel disease. TECHNIQUE: 3D time of flight MRA was performed. Source images, multiplanar STS MIP, and 3D volume MIP reconstru ctions were reviewed. FINDINGS: There is excellent visualization of the major intracranial arteries out to the second-order branch ve ssels. There is no evidence for aneurysm, vessel truncation or stenosis, and no evidence for vascula r malformation. Flow is seen in the anterior communicating artery. The left posterior cerebral will ry derives most of its flow from the anterior circulation. CONCLUSION: No evidence of vessel truncation or aneurysm. Claus Guevara MD on March 12, 2017 at 21:36 Board Certified Radiologist. This report was verified electronically.
--- NOTE | 2017-03-12 21:40 | RADRPT ---
EXAM DATE/TIME: 03/12/2017 19:09 [facility] COMPARISON: No previous studies available for comparison. INDICATIONS : Stroke. CONTRAST: 20 cc Omniscan (gadodiamide) IV MEDICAL HISTORY : None. SURGICAL HISTORY : Appendectomy. Fusion, cervical. ENCOUNTER: Subsequent ACUITY: 1 day PAIN SCORE: 0/10 LOCATION: Percent stenosis is calculated using the diameter of the stenotic region over the diameter of the nor mal distal internal carotid artery. TECHNIQUE: Bolus infused MRA of the extracranial circulation was performed using a neurovascular coil. Post pro cessing was performed including rotating subvolume maximum intensity projections of each carotid will ry, rotating full volume maximum intensity projections of both carotid arteries, sagittal and coronal sliding thin slab reformations of each carotid artery, and left oblique sliding thin slab reformatio n through the aortic arch to include the origin of the arch branch vessels. FINDINGS: AORTIC ARCH: There is a three vessel origin of the great vessels from the aorta. No evidence of ostial narrowing. RIGHT CAROTID: The common carotid artery is intact. The carotid bulb has a normal configuration without ulceration or narrowing. The internal carotid artery lumen is smooth without stenosis. The external carotid ar saúl is intact. LEFT CAROTID: The common carotid artery is intact. The carotid bulb has a normal configuration without ulceration or narrowing. The internal carotid artery lumen is smooth without stenosis. The external carotid ar saúl is intact. VERTEBRALS: The vertebral arteries have a symmetric diameter. No stenotic lesions are seen. CONCLUSION: Normal MRA of the carotids. Claus Guevara MD on March 12, 2017 at 21:38 Board Certified Radiologist. This report was verified electronically.
--- NOTE | 2017-03-12 22:04 | HHI.HP ---
HPI Service [facility] Primary Care Physician Unknown Admission Diagnosis TIA Diagnoses: Travel History International Travel<30 Days: No Contact w/Intl Traveler <30 Da: No Traveled to Known Affected Are: No History of Present Illness 61-year-old female with a history of basal ganglia stroke last month, who presents with acute onset right upper extremity weakness around 11 AM, accompanied by left face numbness. This has currently resolved. She reports otherwise feeling all right. Denies any chest pain or shortness of breath. She does however report a chronic throbbing frontal headache for the past month since her stroke. Review of Systems performed and negative except for HPI and past medical history. Past Family Social History Past Medical History Degenerative disc disease CVA February 14, 2017. Status post TPA. Fibromyalgia Migraines Osteoarthritis Depression Anxiety Insomnia Osteoporosis Hyperlipidemia Past Surgical History Pilonidal cyst surgery Appendectomy Ovarian surgery C5-C6 fusion Allergies: Coded Allergies: No Known Allergies (Verified , 03/12/17) Family History Mother is currently in hospice with COPD. Father with heart disease which began in his 60s Social History Patient has smoked on average one pack per day for the past 40 years however says that she is currently down to several cigarettes a day since her stroke. Reports occasional alcohol. Denies any illicit drugs Physical Exam Vital Signs Vital Signs Date Time Temp Pulse Resp B/P Pulse Ox O2 Delivery O2 Flow Rate FiO2 03/12/17 20:00 97.5 77 18 116/56 99 03/12/17 15:00 88 16 110/62 99 Nasal Cannula 03/12/17 14:00 88 16 108/60 99 Nasal Cannula 2 03/12/17 13:01 99 Nasal Cannula 2 03/12/17 13:01 16 99 Nasal Cannula 2 03/12/17 13:00 86 16 118/68 98 Room Air 03/12/17 12:21 97.8 100 16 125/72 98 Physical Exam GENERAL: This is a well-nourished, well-developed patient, in no apparent distress.alert and oriented 3. SKIN: No rashes, ecchymoses or lesions. Cool and dry. HEAD: Atraumatic. Normocephalic. No temporal or scalp tenderness. EYES: Pupils equal round and reactive. Extraocular motions intact. No scleral icterus. No injection or drainage. ENT: Nose without bleeding, purulent drainage or septal hematoma. Throat without erythema, tonsillar hypertrophy or exudate. Uvula midline. Airway patent. NECK: Trachea midline. No JVD or lymphadenopathy. Supple, nontender, no meningeal signs. CARDIOVASCULAR: Regular rate and rhythm without murmurs, gallops, or rubs. RESPIRATORY: Clear to auscultation. Breath sounds equal bilaterally. No wheezes , rales, or rhonchi. GASTROINTESTINAL: Abdomen soft, non-tender, nondistended. No hepato-splenomegaly , or palpable masses. No guarding. MUSCULOSKELETAL: Extremities without clubbing, cyanosis, or edema. No joint tenderness, effusion, or edema noted. No calf tenderness. Negative Homans sign bilaterally. NEUROLOGICAL: Awake and alert. Cranial nerves II through XII intact. Motor and sensory grossly within normal limits. Five out of 5 muscle strength in all muscle groups. Normal speech. Laboratory Laboratory Tests Test 03/12/17 03/12/17 12:30 17:50 White Blood Count 8.3 Red Blood Count 4.61 Hemoglobin 15.2 Bedside Hemoglobin 15.6 Hematocrit 44.6 Bedside Hematocrit 46.0 Mean Corpuscular Volume 96.8 Mean Corpuscular Hemoglobin 32.9 Mean Corpuscular Hemoglobin 34.0 Concent Red Cell Distribution Width 13.0 Platelet Count 275 Mean Platelet Volume 7.7 Neutrophils (%) (Auto) 65.5 Lymphocytes (%) (Auto) 24.7 Monocytes (%) (Auto) 6.7 Eosinophils (%) (Auto) 2.2 Basophils (%) (Auto) 0.9 Neutrophils # (Auto) 5.5 Lymphocytes # (Auto) 2.1 Monocytes # (Auto) 0.6 Eosinophils # (Auto) 0.2 Basophils # (Auto) 0.1 CBC Comment DIFF FINAL Differential Comment Erythrocyte Sedimentation Rate 4 Prothrombin Time 10.3 Prothromb Time International 0.9 Ratio Activated Partial 27.6 Thromboplast Time Fibrinogen 365 Bedside Sodium 138 Bedside Potassium 4.3 Bedside Chloride 102 Bedside Blood Urea Nitrogen 37 Bedside Creatinine 0.7 Bedside Glucose 123 Hemoglobin A1c 5.4 Total Creatine Kinase 72 Troponin I LESS THAN 0.02 Thyroid Stimulating Hormone 2.000 3rd Gen Human Chorionic Gonadotropin, 4 Quant Blood Type O POSITIVE Antibody Screen NEGATIVE Urine Opiates Screen NEG Urine Barbiturates Screen NEG Urine Amphetamines Screen NEG Urine Benzodiazepines Screen POS Urine Cocaine Screen NEG Urine Cannabinoids Screen NEG Result Diagram: 03/12/17 1230 Assessment and Plan Assessment and Plan //Possible stroke versus TIA -Initial CT negative. Unable to do TPA secondary to recent stroke last month. -Aspirin and Plavix ordered by neurology. -MRI ordered and pending. Neurology following. Head of bed flat. Every 4 hours neuro checks. -Neurology following. Appreciate assistance. //Tobaccoism. Cessation counseling provided. Hold Chantix for now. //Depression. Continue home medication. //Insomnia. Avoid mind altering medications at this time. //Hyperlipidemia. Continue home statin. //History of anxiety. Will avoid benzodiazepine due to current presentation. //Prophylaxis. SCDs. Discussed Condition With patient, nurse, ED physician. Physician Certification 2 Midnight Certification Type: Admission for Inpatient Services Order for Inpatient Services The services are ordered in accordance with Medicare regulations or non- Medicare payer requirements, as applicable. In the case of services not specified as inpatient-only, they are appropriately provided as inpatient services in accordance with the 2-midnight benchmark. Estimated LOS (days): 2 days is the estimated time the patient will need to remain in the hospital, assuming treatment plan goals are met and no additional complications. Post-Hospital Plan: Not yet determined Nav Rasheed MD Mar 12, 2017 22:04
[2017-03-13] VITALS (7 sets, daily range): BP systolic 94–108; BP diastolic 49–57; PULSE 71–89; RESP 16–18; TEMP 96.7–99; O2SAT 95–97
[2017-03-13] MEDS: SODIUM CHLOR 0.9% 1000 ML INJ 1,000 ML IV SCH (04:22)
[2017-03-13] MEDS: INSULIN ASPART SUPPLEMENTAL SCALE SQ SCH (05:19)
[2017-03-13] MEDS: ACETAMINOPHEN 325 MG TAB PO PRN (05:21)
--- NOTE | 2017-03-13 08:05 | HHI.PR ---
Subjective Remarks sr Objective Vital Signs Date Time Temp Pulse Resp B/P Pulse Ox O2 Delivery O2 Flow Rate FiO2 03/13/17 04:00 97.8 85 18 95/51 97 03/13/17 00:00 96.7 71 16 94/49 97 03/12/17 20:00 97.5 77 18 116/56 99 03/12/17 15:00 88 16 110/62 99 Nasal Cannula 03/12/17 14:00 88 16 108/60 99 Nasal Cannula 2 03/12/17 13:01 99 Nasal Cannula 2 03/12/17 13:01 16 99 Nasal Cannula 2 03/12/17 13:00 86 16 118/68 98 Room Air 03/12/17 12:21 97.8 100 16 125/72 98 I/O 03/12/17 03/12/17 03/12/17 03/13/17 03/13/17 03/13/17 07:00 15:00 23:00 07:00 15:00 23:00 Intake Total 324 ml Balance 324 ml Intake IV Total 324 ml # Voids 1 Result Diagram: 03/12/17 1230 Objective Remarks awake alert nad doing well 5/5 t/o still with clark Assessment and Plan Assessment and Plan imp eeg sharp on left dc wellbutrin no chantrix add keppra no new cva mri/a/a neg new i reviewed films resolving cva hyper pend change to plavix dc asa in 3 days make sure she does try steroid for clark could dc later today not to drive Landon Hernandez MD Mar 13, 2017 08:05
[2017-03-13] MEDS ORDERED: PANTOPRAZOLE SOD 20 MG DELAYED RELEASE TAB PO ONE (09:00)
[2017-03-13] MEDS ORDERED: levETIRAcetam 500 MG TAB PO SCH (09:00)
[2017-03-13] MEDS ORDERED: DEXAMETHASONE SOD PHOS 20 MG/5 ML VIAL IM ONE (09:30)
[2017-03-13] MEDS ORDERED: ASPI81TA11 PO (10:29)
[2017-03-13] MEDS ORDERED: PRED10PA2 PO (10:29)
[2017-03-13] MEDS ORDERED: LEVE500 PO (10:29)
[2017-03-13] MEDS: CLOPIDOGREL 75 MG TAB PO SCH (10:30)
[2017-03-13] MEDS ORDERED: DEXAMETHASONE 4 MG TAB PO ONE (10:30)
[2017-03-13] MEDS: ASPIRIN EC 325 MG TABEC PO SCH (10:32)
[2017-03-13] MEDS ORDERED: DEXAMETHASONE SOD PHOS 20 MG/5 ML VIAL IV ONE (10:45)
--- NOTE | 2017-03-13 11:56 | EKG ---
Date Performed: 03/12/2017 Time Performed: 13:07:49 PTAGE: 61 years EKG: Sinus rhythm MODERATE INTRAVENTRICULAR CONDUCTION DELAY Biatrial enlargement BORDERLINE ECG PREVIOUS TRACING : 02/14/2017 11.13 No change compared to the prior study. DOCTOR: Landon Roy Interpretating Date/Time 03/13/2017 11:54:24
--- NOTE | 2017-03-13 14:18 | PD.CONS ---
[facility] Service Rehabilitation Medicine Consult Requested By Dr Rasheed Reason for Consult Comprehensive rehabilitation evaluation. Primary Care Physician Unknown History of Present Illness Kym Lima is a 61 year old right hand dominant female admitted [facility] with headache and right upper and lower extremity heaviness. Head CT was negative. Brain MRI shows evolving subacute to chronic left basal ganglia infarct. Patient is been started on Plavix. EEG showed sharp activity in the left hemisphere. She's been started on Keppra. Review of Systems Constitutional: COMPLAINS OF: Fatigue Eyes: DENIES: Diplopia Ears, nose, mouth, throat: DENIES: Throat pain Respiratory: DENIES: Shortness of breath Cardiovascular: DENIES: Chest pain Gastrointestinal: DENIES: Abdominal pain Genitourinary: DENIES: Urinary incontinence Neurologic: COMPLAINS OF: Headache, DENIES: Localized weakness, Paresthesias, Speech Problems Psychiatric: DENIES: Confusion Past Family Social History Allergies: Coded Allergies: No Known Allergies (Verified , 03/12/17) Past Medical History Previous stroke Migraine Hypothyroidism Hypercholesterolemia Past Surgical History None listed Current Medications Current Medications Medications (Trade) Dose Ordered Sig/Danica Route Start Time Stop Time Status Last Admin (Ecotrin Ec) 325 mg DAILY PO 03/12/17 13:30 03/13/17 10:32 (Tylenol) 325 mg Q4H PRN PO 03/12/17 13:30 03/13/17 05:21 (NS Flush) 2 ml BID IV FLUSH 03/12/17 21:00 03/12/17 20:33 IV Flush 2 ml 2 ml UNSCH PRN IV FLUSH 03/12/17 14:15 (NS 1000 ml Inj) 1,000 ml @ 70 mls/hr [id number] IV 03/12/17 14:04 (NovoLOG SUPPLEMENTAL SCALE) 1 ACHS SQ 03/12/17 16:00 (D50w (Vial) Inj) 50 ml UNSCH PRN IV PUSH 03/12/17 14:15 03/12/17 20:57 (Glucagon Inj) 1 mg UNSCH PRN OTHER 03/12/17 14:15 (Lovenox Inj) 40 mg Q24H SQ 03/12/17 15:00 03/12/17 15:22 (Lipitor) 40 mg HS PO 03/12/17 21:00 03/12/17 20:32 (Plavix) 75 mg DAILY PO 03/12/17 14:45 03/13/17 10:30 (Keppra) 500 mg Q12HR PO 03/13/17 09:00 03/13/17 10:31 Family History Mother: Stroke Social History Prior to admission patient lived in [place], [place]. She was working at the [employer]. She was independent with mobility and ADLs Exam I&O / VS 03/12/17 03/12/17 03/13/17 15:00 23:00 07:00 Intake Total 324 ml Balance 324 ml Intake IV Total 324 ml # Voids 1 Vital Signs Date Time Temp Pulse Resp B/P Pulse Ox O2 Delivery O2 Flow Rate FiO2 03/13/17 12:40 95 03/13/17 12:00 98.4 89 17 108/57 96 03/13/17 08:00 98.0 82 17 106/53 97 03/13/17 04:00 97.8 85 18 95/51 97 03/13/17 00:00 96.7 71 16 94/49 97 03/12/17 20:00 97.5 77 18 116/56 99 03/12/17 15:00 88 16 110/62 99 Nasal Cannula General: Mild distress (reporting headache) Respiratory: Lungs CTA, Non-labored respirations, BS equal Gastrointestinal: Positive Bowel Sounds, Non-Distended, Non-Tender Cardiovascular: Normal rate, Regular Rhythm Musculoskeletal: Swelling (none) Psychiatric: Cooperative, Appropriate mood & affect Orientation: oriented to Self, oriented to Place, oriented to Time, oriented to Situation Neurologic: Pupils (PERRLA), EOM (intact), Speech, Other (bilateral upper lower extremities 5 over 5) Sensory Intact to light touch in all extremities Clonus: Negative Assessment and Plan Diagnosis: (1) History of stroke Plan 1. Patient has been out of bed with physical therapy and is now independent with transfers and ambulating 500 feet. Continue to mobilize while hospitalized. No additional physical therapy anticipated at discharge 2. Speech therapy has evaluated swallow and tolerating regular diet 3. Occupational therapy has evaluated ADLs and independent 4. No ongoing rehabilitation needs are identified for discharge. Case management is working on discharge disposition planning 5. Follow-up as needed Thank you for this consult Jenifer Nation MD Mar 13, 2017 14:18
--- NOTE | 2017-03-13 23:52 | HHI.DS ---
Discharge Summary Admission Date Mar 12, 2017 at 14:14 Discharge Date: Mar 13, 2017 Admitting Diagnosis TIA Procedures no invasive procedures. Brief History - From Admission 61-year-old female with a history of basal ganglia stroke last month, who presents with acute onset right upper extremity weakness around 11 AM, accompanied by left face numbness. This has currently resolved. She reports otherwise feeling all right. Denies any chest pain or shortness of breath. She does however report a chronic throbbing frontal headache for the past month since her stroke. CBC/BMP: 03/12/17 1230 Significant Findings Laboratory Tests Test 03/12/17 03/12/17 03/13/17 12:30 17:50 10:32 Bedside Blood Urea Nitrogen 37 MG/DL (8-26) Bedside Glucose 123 MG/DL (60-95) Troponin I LESS THAN 0.02 NG/ML (0.02-0.05) Urine Benzodiazepines Screen POS (NEG) Folate 18.2 NG/ML (3.1-17.5) PE at Discharge GENERAL: sitting up in bed. Appears comfortable. SKIN: Warm and dry. HEAD: Normocephalic. EYES: No scleral icterus. No injection or drainage. NECK: Supple, trachea midline. No JVD or lymphadenopathy. CARDIOVASCULAR: Regular rate and rhythm without murmurs, gallops, or rubs. RESPIRATORY: Breath sounds equal bilaterally. No accessory muscle use. GASTROINTESTINAL: Abdomen soft, non-tender, nondistended. MUSCULOSKELETAL: No cyanosis, or edema. BACK: Nontender without obvious deformity. No CVA tenderness. Pt update on day of discharge patient says she is feeling well. Denies any weakness. Hospital Course //Possible stroke versus TIA -Initial CT negative. Unable to do TPA secondary to recent stroke last month. -Aspirin and Plavix ordered by neurology. -MRI ordered and pending. Neurology following. Head of bed flat. Every 4 hours neuro checks. -Neurology following. Appreciate assistance. //Tobaccoism. Cessation counseling provided. Hold Chantix for now. //Depression. Continue home medication. //Insomnia. Avoid mind altering medications at this time. //Hyperlipidemia. Continue home statin. //History of anxiety. Will avoid benzodiazepine due to current presentation. //Prophylaxis. SCDs. Pt Condition on Discharge: Good Discharge Disposition: Discharge Home Discharge Time: <= 30 minutes Discharge Instructions DIET: Follow Instructions for: Heart Healthy Diet Speech Therapy-Diet Recommends: Regular Activities you can perform: Regular-No Restrictions Activities to Avoid: Driving Follow up Referrals: Neurology - 1 Week with Landon Hernandez MD PCP Follow-up - 1 Week New Medications: Aspirin DR (Aspirin EC) 81 Mg Tabdr 81 MG PO DAILY Stroke Prevention Days 30 Ref 0 TAB Prednisone (48) 10 mg tab Dose Pack (Prednisone (48) 10 mg tab Dose Pack) 10 Mg Dspk 10 MG PO DIRECTED Inflammation #1 Ref 0 DSPK Levetiracetam (Keppra) 500 Mg Tab 500 MG PO Q12HR prevent seizures Days 30 TAB Continued Medications: Alendronate (Alendronate) 70 Mg Tab 70 MG PO Q7D Osteporosis Treatment #4 Ref 0 TAB Alprazolam (Xanax) 0.25 Mg Tab 0.25 MG PO TID PRN ANXIETY Ref 0 TAB Atorvastatin (Atorvastatin) 40 Mg Tab 40 MG PO HS Cholesterol Management #30 Ref 0 TAB Temazepam (Restoril) 15 Mg Cap 15 MG PO HS PRN INSOMNIA #30 Ref 0 CAP Discontinued Medications: Aspirin (Aspirin) 325 Mg Tab 325 MG PO DAILY cva Days 30 Ref 0 TAB Bupropion HCl (Bupropion HCl) 100 Mg Tab 100 MG PO BID Control Depression Ref 0 TAB Cyclobenzaprine (Flexeril) 10 Mg Tab 10 MG PO TID PRN pain #12 Ref 0 TAB Hydrocodone-Acetaminophen (Lortab) 7.5-325 Mg Tab 1 TAB PO Q6H PRN PAIN Ref 0 TAB Varenicline (Chantix) Unknown Strength Tab Unknown Dose PO BIDPC Smoking cessation #60 Ref 0 TAB Nav Rasheed MD Mar 13, 2017 23:52
[2017-03-13] MEDS ORDERED: CLOP75TA PO (23:53)
--- NOTE | 2017-03-14 13:37 | HM ---
Date Performed: 03/12/2017 Time Performed: 20:52:00 HOOKUP DATE: 03/12/17 08:52:00 PM [facility] ANALYSIS START TIME: 03/12/2017 8:57:00 PM ANALYSIS END TIME: 03/13/2017 9:01:00 PM PATIENT AGE: 61 PATIENT HEIGHT: 61 PATIENT WEIGHT: 114 DRUG LIST PATIENT DIAGNOSIS: Stroke/Afib TEST NARRATIVE: The patient's average heart rate was 92 BPM. Heart rates greater than 120 B PM were noted 11% of the time. No episodes of bradycardia were noted. No pauses exceeding 2.0 se conds were noted. 1 ventricular ectopics, which represented < 1% of the total beat count, were no dora. The highest ventricular ectopic frequency occurred from 12:00 AM to 01:00 AM Fri. During this time 1 VE(s) occurred. Ventricular ectopics were observed as 1 isolated beat(s) only. No couplets o r runs were noted. No supraventricular ectopics were noted. In channel 1, a single episode of ST depression (defined as -1.0 mm or more) occurred at 07:03:43 PM Fri with a maximum depression of -1.5 mm. No episodes of ST depression (defined as -1.0 mm or more) were noted in channel 2. No epis odes of ST depression (defined as -1.0 mm or more) were noted in channel 3. No diary events were reported by the patient. TEST INTERPRETATION: The patient was monitored for 24 hours. The minimum heart rate was 63 bpm and the maximum heart rate was 143 bpm with an average heart rate of 92 bpm. The underlying rhythm i s a normal Sinus rhythm . There were occasional PACs and PVCs. CONCLUSIONS: No significant arrhythmias No atrial fibrillatio n Signed by : Mary Dow
[2017-03-16 10:02] LABS: RAPID PLASMA REAGIN SCREEN NON-REACTIVE (NON-REACTVE)
[2017-03-16 15:48] LABS: ANA SCREEN NEG (NEG)
== END 2017-03-13 18:28 | disposition home or self-care (01) | DRG 66 ==
LOC: NEPC 12:21 → NEDA 14:14 → N05A 17:28
PROVIDERS: ADMIT Internal Medicine; ATTEND Internal Medicine
DX: I63.9 Cerebral infarction, unspecified (principal); E03.9 Hypothyroidism, unspecified; E78.5 Hyperlipidemia, unspecified; G47.00 Insomnia, unspecified; E78.00 Pure hypercholesterolemia, unspecified; M79.7 Fibromyalgia; M81.0 Age-related osteoporosis without current pathological fracture; Z79.82 Long term (current) use of aspirin; F17.210 Nicotine dependence, cigarettes, uncomplicated; Z79.899 Other long term (current) drug therapy; Z86.73 Personal history of transient ischemic attack (TIA), and cerebral infarction without residual deficits; Z87.442 Personal history of urinary calculi; G43.909 Migraine, unspecified, not intractable, without status migrainosus; F41.8 Other specified anxiety disorders; M51.36 Other intervertebral disc degeneration, lumbar region; M19.90 Unspecified osteoarthritis, unspecified site
CPT/HCPCS: 70450; 70544; 70548; 70553; 80061; 80307; 81240; 81241; 82435; 82550; 82565; 82746; 82947; 82948; 83036; 84132; 84295; 84443; 84484; 84520; 84702; 85025; 85240; 85300; 85303; 85306; 85384; 85610; 85613; 85652; 85730; 86038; 86147; 86592; 86850; 86900; 86901; 93005; 93225; 93226; 95819; A9579; J1650; J7030; J7050

== ENCOUNTER 2017-03-31 10:14 | Emergency (ER) | payer BC ==
[~2017-03-31] VITALS: Ht 157.5 cm; Wt 52.0 kg
[~2017-03-31 10:14] MED LIST changes: +ALEN1TAB48 PO; -ASPI325T PO; +ASPI81TA11 PO; +CLOP75TA PO; -CYCL1TAB29 PO; +LEVE500 PO; +PRED10PA2 PO
[2017-03-31 10:22] VITALS: BP 121/59; PULSE 83; RESP 17; TEMP 97.5
[2017-03-31] MEDS ORDERED: SODIUM CHLOR 0.9% 1000 ML INJ 1,000 ML IV ONE (11:16)
--- NOTE | 2017-03-31 11:26 | PD ---
HPI Chief Complaint: Syncope/Near-Syncope Time Seen by Provider: 11:14 Travel History International Travel<30 days: No Contact w/Intl Traveler<30days: No Traveled to known affect area: No History of Present Illness HPI 61-year-old female with history of CVA approximately 6 weeks ago presents nursing department for evaluation. Patient states she was sitting at her desk when she passed out. Patient states she was doing nothing when this happened. She did feel like she was going to pass out prior to actually occurring. Patient states that she hasn't been feeling well today so she did not eat breakfast which she typically does. She reports having a headache but has had this since her CVA. Denies any acute focal deficits or weakness. No nausea or vomiting at this time. She denies any chest pain or tightness. She does have an appointment with her neurologist on Thursday. She has no other symptoms to report at this time. Patient was seen and evaluated earlier this month following a TIA. She is currently not having any focal deficit. PFSH Past Medical History Hx Anticoagulant Therapy: Yes (ASA) Arthritis: No Autoimmune Disease: No Blood Disorders: No Anxiety: Yes Depression: Yes Heart Rhythm Problems: No Cancer: No Cardiovascular Problems: No High Cholesterol: Yes Chest Pain: No Congestive Heart Failure: No Cerebrovascular Accident: Yes (FEBRUARY 2017 GIVEN TPA) Diabetes: No Diminished Hearing: No Endocrine: Yes Fibromyalgia: Yes Gastrointestinal Disorders: Yes Genitourinary: Yes Headaches: Yes Hepatitis: No Hiatal Hernia: No Immune Disorder: No Kidney Stones: Yes Musculoskeletal: Yes (DEGENERATIVE DISC DISEASE PER PT,NECK BACK , ARTHRTIS) Neurologic: Yes (NUMBNESS AND TINGLING ()) Psychiatric: No Reproductive: No Respiratory: No Migraines: Yes Myocardial Infarction: No Renal Failure: No Seizures: Yes (one during 32 years ago) Thyroid Disease: Yes (Borderline hyperactive thyroid) Ulcer: No Influenza Vaccination: Yes ?: Not Menopausal: Yes Ovarian Cysts: Yes Past Surgical History Abdominal Surgery: Yes (APPY, OVARY RUPTURED AND REPAIRED) Appendectomy: Yes Cardiac Surgery: No Ear Surgery: No Endocrine Surgery: No Eye Surgery: No Genitourinary Surgery: Yes (pilonidal cysts) Gynecologic Surgery: No Oral Surgery: No Thoracic Surgery: No Other Surgery: Yes Social History Alcohol Use: Yes (OCC) Tobacco Use: Yes (1/3 PPD) Substance Use: No Allergies-Medications (Allergen,Severity, Reaction): Coded Allergies: No Known Allergies (Verified , 03/31/17) Reported Meds & Prescriptions Reported Meds & Active Scripts Active Keflex (Cephalexin) 500 Mg Cap 500 Mg PO Q12H 7 Days Clopidogrel (Clopidogrel Bisulfate) 75 Mg Tab 75 Mg PO DAILY Keppra (Levetiracetam) 500 Mg Tab 500 Mg PO Q12HR 30 Days Aspirin EC (Aspirin) 81 Mg Tabdr 81 Mg PO DAILY 30 Days Atorvastatin (Atorvastatin Calcium) 40 Mg Tab 40 Mg PO HS Reported Restoril (Temazepam) 15 Mg Cap 15 Mg PO HS PRN Xanax (Alprazolam) 0.25 Mg Tab 0.25 Mg PO TID PRN Review of Systems Except as stated in HPI: all other systems reviewed are Neg Physical Exam Narrative GENERAL: Well-nourished female patient, lying in bed in no acute distress SKIN: Focused skin assessment warm/dry. HEAD: Atraumatic. Normocephalic. EYES: Pupils equal and round. No scleral icterus. No injection or drainage. EOMI. PERRLA ENT: No nasal bleeding or discharge. Mucous membranes pink and moist. NECK: Trachea midline. No JVD. CARDIOVASCULAR: Regular rate and rhythm. No murmur appreciated. RESPIRATORY: No accessory muscle use. Clear to auscultation. Breath sounds equal bilaterally. GASTROINTESTINAL: Abdomen soft, non-tender, nondistended. Hepatic and splenic margins not palpable. MUSCULOSKELETAL: No obvious deformities. No clubbing. No cyanosis. No edema. Very mild right sided weakness. NEUROLOGICAL: Awake and alert. No obvious cranial nerve deficits. Motor grossly within normal limits. Normal speech. Data Data Last Documented VS Vital Signs Date Time Temp Pulse Resp B/P (MAP) Pulse Ox O2 Delivery O2 Flow Rate FiO2 03/31/17 14:23 03/31/17 13:28 83 16 81 16 82 18 03/31/17 11:53 97 Room Air 03/31/17 10:22 97.5 Orders Orders Electrocardiogram (03/31/17 11:16) Basic Metabolic Panel (Bmp) (03/31/17 11:16) Complete Blood Count With Diff (03/31/17 11:16) Magnesium (Mg) (03/31/17 11:16) Ckmb (Isoenzyme) Profile (03/31/17 11:16) Troponin I (03/31/17 11:16) Act Partial Throm Time (Ptt) (03/31/17 11:16) Prothrombin Time / Inr (Pt) (03/31/17 11:16) Urinalysis - C+S If Indicated (03/31/17 11:16) Chest, Single Ap (03/31/17 11:16) Ct Brain W/O Iv Contrast(Rout) (03/31/17 11:16) Ecg Monitoring (03/31/17 11:16) Iv Access Insert/Monitor (03/31/17 11:16) Oximetry (03/31/17 11:16) Sodium Chloride 0.9% Flush (Ns Flush) (03/31/17 11:30) Sodium Chlor 0.9% 1000 Ml Inj (Ns 1000 M (03/31/17 11:16) Acetaminophen (Tylenol) (03/31/17 12:15) Urine Culture (03/31/17 11:50) Dexamethasone Inj (Decadron Inj) (03/31/17 13:00) Metoclopramide Inj (Reglan Inj) (03/31/17 13:00) Diphenhydramine Inj (Benadryl Inj) (03/31/17 13:00) Orthostatic Vital Signs (03/31/17 13:01) Labs Laboratory Tests Test 03/31/17 11:30 03/31/17 11:50 White Blood Count 8.3 TH/MM3 Red Blood Count 4.22 MIL/MM3 Hemoglobin 13.6 GM/DL Hematocrit 41.5 % Mean Corpuscular Volume 98.3 FL Mean Corpuscular Hemoglobin 32.2 PG Mean Corpuscular Hemoglobin Concent 32.7 % Red Cell Distribution Width 13.1 % Platelet Count 282 TH/MM3 Mean Platelet Volume 7.5 FL Neutrophils (%) (Auto) 71.5 % Lymphocytes (%) (Auto) 20.4 % Monocytes (%) (Auto) 5.9 % Eosinophils (%) (Auto) 1.6 % Basophils (%) (Auto) 0.6 % Neutrophils # (Auto) 5.9 TH/MM3 Lymphocytes # (Auto) 1.7 TH/MM3 Monocytes # (Auto) 0.5 TH/MM3 Eosinophils # (Auto) 0.1 TH/MM3 Basophils # (Auto) 0.1 TH/MM3 CBC Comment DIFF FINAL Differential Comment Prothrombin Time 10.2 SEC Prothromb Time International Ratio 0.9 RATIO Activated Partial Thromboplast Time 27.3 SEC Blood Urea Nitrogen 17 MG/DL Creatinine 0.56 MG/DL Random Glucose 77 MG/DL Calcium Level 8.6 MG/DL Magnesium Level 2.0 MG/DL Sodium Level 142 MEQ/L Potassium Level 4.2 MEQ/L Chloride Level 108 MEQ/L Carbon Dioxide Level 26.2 MEQ/L Anion Gap 8 MEQ/L Estimat Glomerular Filtration Rate 110 ML/MIN Total Creatine Kinase 61 U/L Troponin I LESS THAN 0.02 NG/ML Urine Color YELLOW Urine Turbidity HAZY Urine pH 6.0 Urine Specific [place] 1.018 Urine Protein NEG mg/dL Urine Glucose (UA) NEG mg/dL Urine Ketones NEG mg/dL Urine Occult Blood NEG Urine Nitrite POS Urine Bilirubin NEG Urine Urobilinogen LESS THAN 2.0 MG/DL Urine Leukocyte Esterase MOD Urine RBC 1 /hpf Urine WBC 37 /hpf Urine Squamous Epithelial Cells <1 /hpf Urine Bacteria FEW /hpf Urine Mucus FEW /lpf Microscopic Urinalysis Comment CULTURE INDICATED MDM Medical Decision Making Medical Screen Exam Complete: Yes Emergency Medical Condition: Yes Medical Record Reviewed: Yes Differential Diagnosis Syncope versus near-syncope versus dehydration versus electrolyte abnormality versus arrhythmia versus CVA versus TIA Narrative Course 61-year-old female presents to the emergency department for evaluation. Patient appears without distress. She has no acute focal deficit. Patient does have a headache but states she has had this since her CVA 6 weeks ago. EKG is reviewed from my attending physician with no acute arrhythmia, ST elevation, or depression. Laboratory Tests Test 03/31/17 11:30 03/31/17 11:50 White Blood Count 8.3 TH/MM3 Red Blood Count 4.22 MIL/MM3 Hemoglobin 13.6 GM/DL Hematocrit 41.5 % Mean Corpuscular Volume 98.3 FL Mean Corpuscular Hemoglobin 32.2 PG Mean Corpuscular Hemoglobin Concent 32.7 % Red Cell Distribution Width 13.1 % Platelet Count 282 TH/MM3 Mean Platelet Volume 7.5 FL Neutrophils (%) (Auto) 71.5 % Lymphocytes (%) (Auto) 20.4 % Monocytes (%) (Auto) 5.9 % Eosinophils (%) (Auto) 1.6 % Basophils (%) (Auto) 0.6 % Neutrophils # (Auto) 5.9 TH/MM3 Lymphocytes # (Auto) 1.7 TH/MM3 Monocytes # (Auto) 0.5 TH/MM3 Eosinophils # (Auto) 0.1 TH/MM3 Basophils # (Auto) 0.1 TH/MM3 CBC Comment DIFF FINAL Differential Comment Prothrombin Time 10.2 SEC Prothromb Time International Ratio 0.9 RATIO Activated Partial Thromboplast Time 27.3 SEC Blood Urea Nitrogen 17 MG/DL Creatinine 0.56 MG/DL Random Glucose 77 MG/DL Calcium Level 8.6 MG/DL Magnesium Level 2.0 MG/DL Sodium Level 142 MEQ/L Potassium Level 4.2 MEQ/L Chloride Level 108 MEQ/L Carbon Dioxide Level 26.2 MEQ/L Anion Gap 8 MEQ/L Estimat Glomerular Filtration Rate 110 ML/MIN Total Creatine Kinase 61 U/L Troponin I LESS THAN 0.02 NG/ML Urine Color YELLOW Urine Turbidity HAZY Urine pH 6.0 Urine Specific [place] 1.018 Urine Protein NEG mg/dL Urine Glucose (UA) NEG mg/dL Urine Ketones NEG mg/dL Urine Occult Blood NEG Urine Nitrite POS Urine Bilirubin NEG Urine Urobilinogen LESS THAN 2.0 MG/DL Urine Leukocyte Esterase MOD Urine RBC 1 /hpf Urine WBC 37 /hpf Urine Squamous Epithelial Cells <1 /hpf Urine Bacteria FEW /hpf Urine Mucus FEW /lpf Microscopic Urinalysis Comment CULTURE INDICATED CT is without acute concern. Chest x-ray shows no acute cardiopulmonary disease. Patient is treated for pain and given IV fluids. Upon reassessment, she does verbalize improvement in her headache. Patient will be treated for UTI. I discussed the patient my attending physician. Patient will be discharged at this time to follow-up with her primary care provider and is encouraged to seek cardiology evaluation for Holter monitoring. This is discussed with the patient and she agrees to return immediately with any acute worsening of symptoms. Diagnosis Primary Impression: Syncope Qualified Codes: R55 - Syncope and collapse Additional Impressions: Headache Qualified Codes: R51 - Headache History of stroke UTI (urinary tract infection) Qualified Codes: N30.00 - Acute cystitis without hematuria Referrals: Executive [facility] Neurologist Primary Care Physician Patient Instructions: General Instructions, Syncope (ED) Additional Instructions: Follow-up with your primary care provider Seek cardiology evaluation. Holter monitor is recommended for further evaluation Keep your appointment with your neurologist No driving until cleared by your neurologist and patient case coordinator Return immediately with any acute worsening of symptoms Med/Other Pt SpecificInfo: Prescription(s) given Scripts Cephalexin (Keflex) 500 Mg Cap 500 MG PO Q12H for Infection for 7 Days, CAP 0 Refills Prov: Claudia Yen 03/31/17 Disposition: 01 DISCHARGE HOME Condition: Stable Claudia Yen Mar 31, 2017 11:26
[2017-03-31] MEDS ORDERED: SODIUM CHLORIDE 0.9% FLUSH 10 ML FLUSH IVF PRN (11:30)
[2017-03-31 11:53] VITALS: O2SAT 97
[2017-03-31 11:53] LABS: AUTOMATED NEUTROPHIL # 5.9 TH/MM3 (1.8-7.7); BASOPHIL # 0.1 TH/MM3 (0-0.2); BASOPHIL % 0.6 % (0.0-2.0); EOSINOPHIL # 0.1 TH/MM3 (0-0.4); EOSINOPHIL % 1.6 % (0.0-4.0); HEMATOCRIT 41.5 % (35.0-46.0); HEMO FLAGS DIFF FINAL; LYMPH % 20.4 % (9.0-44.0); LYMPHOCYTE # 1.7 TH/MM3 (1.0-4.8); MEAN CELL VOLUME 98.3 FL (80.0-100.0); MEAN CORPUSCULAR HEMOGLOBIN 32.2 PG (27.0-34.0); MEAN CORPUSCULAR HGB CONC 32.7 % (32.0-36.0); MONO % 5.9 % (0.0-8.0); NEUT % 71.5 % (16.0-70.0); PLATELET COUNT 282 TH/MM3 (150-450); RED BLOOD COUNT 4.22 MIL/MM3 (4.00-5.30); RED CELL DISTRIBUTION WIDTH 13.1 % (11.6-17.2); WHITE BLOOD COUNT 8.3 TH/MM3 (4.0-11.0)
--- NOTE | 2017-03-31 11:54 | RADRPT ---
EXAM DATE/TIME: 03/31/2017 11:21 [facility] COMPARISON: CHEST SINGLE AP, November 04, 2013, 15:10. INDICATIONS : Palpitations. Patient states she has a severe headache and passed out at work. MEDICAL HISTORY : None. SURGICAL HISTORY : Appendectomy. Fusion, cervical ENCOUNTER: Initial ACUITY: 1 day PAIN SCORE: 0/10 LOCATION: Bilateral chest FINDINGS: A single view of the chest demonstrates the lungs to be symmetrically aerated without evidence of mas s, infiltrate or effusion. The cardiomediastinal contours are unremarkable. Osseous structures demo nstrate ACDF hardware overlying the cervical spine. CONCLUSION: No acute disease. Bladimir Reaves MD on March 31, 2017 at 11:51 Board Certified Radiologist. This report was verified electronically.
[2017-03-31 11:58] LABS: APTT (PATIENT) 27.3 SEC (24.3-30.1); INTERNATIONAL NORMALIZED RATIO 0.9 RATIO; PROTHROMBIN TIME - PATIENT 10.2 SEC (9.8-11.6)
[2017-03-31 12:07] LABS: ANION GAP 8 MEQ/L (5-15); BICARBONATE 26.2 MEQ/L (21.0-32.0); BLOOD UREA NITROGEN 17 MG/DL (7-18); CHLORIDE 108 MEQ/L (98-107); GLOMERULAR FILTRATION RATE 110 ML/MIN (>89); POTASSIUM 4.2 MEQ/L (3.5-5.1); SODIUM (NA) 142 MEQ/L (136-145)
[2017-03-31 12:12] LABS: BACTERIA, URINE FEW /hpf; BLOOD, URINE NEG (NEG); COMMENT (UR) CULTURE INDICATED; CULTURE IF INDICATED CULTURE INDICATED; GLUCOSE,URINE NEG (NEG); KETONE, URINE NEG (NEG); MUCUS URINE FEW /lpf (OCC); NITRITE,URINE POS (NEG); SQUAMOUS EPITHELIAL CELL URINE <1 /hpf (0-5); URINE COLOR YELLOW (YELLW/STRAW)
[2017-03-31 12:15] LABS: CREATINE KINASE 61 U/L (26-192)
[2017-03-31] MEDS ORDERED: ACETAMINOPHEN 325 MG TAB PO ONE (12:15)
--- NOTE | 2017-03-31 12:53 | RADRPT ---
EXAM DATE/TIME: 03/31/2017 12:04 [facility] COMPARISON: CT BRAIN W/O CONTRAST, March 12, 2017, 12:51. INDICATIONS : Witnessed syncopal episode, headache, CVA 6 weeks ago RADIATION DOSE: 27.83 CTDIvol (mGy) MEDICAL HISTORY : Seizures. TPA for stroke 6 weeks ago SURGICAL HISTORY : ENCOUNTER: Initial ACUITY: 1 day PAIN SCALE: 5/10 LOCATION: cranial TECHNIQUE: Multiple contiguous axial images were obtained of the head. Using automated exposure control and adj ustment of the mA and/or kV according to patient size, radiation dose was kept as low as reasonably a chievable to obtain optimal diagnostic quality images. DICOM format image data is available electro nically for review and comparison. FINDINGS: CEREBRUM: Stable lacunar infarction old left basal ganglia. The ventricles are normal for age. No evidence of midline shift, mass lesion, hemorrhage or acute infarction. No extra-axial fluid collections are see n. POSTERIOR FOSSA: The cerebellum and brainstem are intact. The 4th ventricle is midline. The cerebellopontine angle i s unremarkable. EXTRACRANIAL: The visualized portion of the orbits is intact. SKULL: The calvaria is intact. No evidence of skull fracture. CONCLUSION: 1. No acute intracranial abnormality. Claus Coreas Jr., MD on March 31, 2017 at 12:49 Board Certified Radiologist. This report was verified electronically.
[2017-03-31] MEDS ORDERED: METOCLOPRAMIDE HCL 10 MG/2 ML VIAL IV PUSH ONE (13:00)
[2017-03-31] MEDS ORDERED: diphenhydrAMINE HCL 50 MG/ML VIAL IV PUSH ONE (13:00)
[2017-03-31] MEDS ORDERED: DEXAMETHASONE SOD PHOS 4 MG/ML VIAL IV PUSH ONE (13:00)
[2017-03-31] MEDS ORDERED: CEPH-460 PO (13:18)
[2017-03-31 13:28] VITALS: BP_SYST 104; BP_SYST 107; BP_SYST 115; BP_DIAS 55; BP_DIAS 57; BP_DIAS 60; RESP 16; RESP 18
--- NOTE | 2017-04-01 20:11 | EKG ---
Date Performed: 03/31/2017 Time Performed: 10:22:50 PTAGE: 61 years EKG: Sinus rhythm WITH SINUS ARRHYTHMIA POSSIBLE LEFT ATRIAL ENLARGEMENT INCOMPLETE RIGHT BUNDLE BRANCH BLOCK BORDERLI NE ECG PREVIOUS TRACING : 03/12/2017 13.07 Compared to prior tracing no significant change DOCTOR: Valentino Forman Interpretating Date/Time 04/01/2017 20:10:58
== END 2017-03-31 14:59 | disposition home or self-care (01) ==
LOC: NEPE 10:14
DX: R55 Syncope and collapse (principal); R51 Headache; Z86.73 Personal history of transient ischemic attack (TIA), and cerebral infarction without residual deficits; Z79.82 Long term (current) use of aspirin; F17.290 Nicotine dependence, other tobacco product, uncomplicated; N30.00 Acute cystitis without hematuria; B96.1 Klebsiella pneumoniae [K. pneumoniae] as the cause of diseases classified elsewhere
CPT/HCPCS: 70450; 71010; 80048; 81001; 82550; 83735; 84484; 85025; 85610; 85730; 87077; 87086; 87186; 93005; 96361; 96374; 96375; 99285; J1100; J1200; J2765; J7030

== ENCOUNTER 2017-05-04 08:38 | Inpatient (IN) | payer BC ==
[~2017-05-04] VITALS: Ht 154.9 cm; Wt 51.5 kg
[2017-05-04] VITALS (13 sets, daily range): BP systolic 98–125; BP diastolic 56–65; PULSE 74–89; RESP 16–20; TEMP 97.5; O2SAT 96–98
[~2017-05-04 08:38] MED LIST changes: -ALEN1TAB48 PO; +CEPH-460 PO; -PRED10PA2 PO
[2017-05-04] MEDS ORDERED: LUNE1TAB6 PO (08:58)
[2017-05-04] MEDS ORDERED: ASPIRIN 81 MG CHEW TAB PO ONE (09:00)
--- NOTE | 2017-05-04 09:08 | PD ---
HPI Chief Complaint: Chest Pain Time Seen by Provider: 08:47 Travel History International Travel<30 days: No Contact w/Intl Traveler<30days: No Traveled to known affect area: No History of Present Illness HPI 61-year-old white female with a three-day history of chest pain presents to the emergency department via ambulance. She has a recent history of CVA and follows cardiology for an unknown reason. She describes the chest pain as constant, dull , and without radiation. States that she was doing yard work before the chest pain started but says now there are no propagating or palliating factors and she has not taken anything for her pain. She states that she had some increased work of breathing but denies shortness of breath now. She was given a single dose of nitroglycerin sublingual and her pain is now a 3 out of 10. She was not given aspirin in the ambulance. She apparently also had a syncopal episode this morning. PFSH Past Medical History Hx Anticoagulant Therapy: Yes Arthritis: No Autoimmune Disease: No Blood Disorders: No Anxiety: Yes Depression: Yes Heart Rhythm Problems: No Cancer: No Cardiovascular Problems: No High Cholesterol: Yes Chest Pain: No Congestive Heart Failure: No Cerebrovascular Accident: Yes Diabetes: No Diminished Hearing: No Endocrine: Yes Fibromyalgia: Yes Gastrointestinal Disorders: No Genitourinary: Yes Headaches: Yes Hepatitis: No Hiatal Hernia: No Hypertension: No Immune Disorder: No Implanted Vascular Access Dvce: No Kidney Stones: Yes Medical other: No Musculoskeletal: Yes (DEGENERATIVE DISC DISEASE PER PT,NECK BACK , ARTHRTIS) Neurologic: Yes (NUMBNESS AND TINGLING ()) Psychiatric: No Reproductive: No Respiratory: No Migraines: Yes Myocardial Infarction: No Renal Failure: No Seizures: Yes (one during 32 years ago) Thyroid Disease: Yes (Borderline hyperactive thyroid) Ulcer: No ?: Not Menopausal: Yes Ovarian Cysts: Yes Past Surgical History Abdominal Surgery: Yes (APPY, OVARY RUPTURED AND REPAIRED) Appendectomy: Yes Cardiac Surgery: No Ear Surgery: No Endocrine Surgery: No Eye Surgery: No Genitourinary Surgery: Yes (pilonidal cysts) Gynecologic Surgery: No Neurologic Surgery: No Oral Surgery: No Thoracic Surgery: No Other Surgery: Yes Social History Alcohol Use: Yes (OCC) Tobacco Use: Yes (/3 PPD) Substance Use: No Allergies-Medications (Allergen,Severity, Reaction): Coded Allergies: No Known Allergies (Verified , 03/31/17) Reported Meds & Prescriptions Reported Meds & Active Scripts Active Keflex (Cephalexin) 500 Mg Cap 500 Mg PO Q12H 7 Days Clopidogrel (Clopidogrel Bisulfate) 75 Mg Tab 75 Mg PO DAILY Keppra (Levetiracetam) 500 Mg Tab 500 Mg PO Q12HR 30 Days Atorvastatin (Atorvastatin Calcium) 40 Mg Tab 40 Mg PO HS Reported Lunesta (Eszopiclone) 1 Mg Tab 1 Mg PO HS PRN Review of Systems Except as stated in HPI: all other systems reviewed are Neg Cardiovascular: Positive: Chest Pain or Discomfort, Dyspnea on exertion Respiratory: Positive: Shortness of Breath (Now resolved) Physical Exam Narrative 61-year-old white female with a three-day history of chest pain presents to the emergency department via ambulance. She has a recent history of CVA and follows cardiology for an unknown reason. She describes the chest pain as constant, dull , and without radiation. States that she was doing yard work before the chest pain started but says now there are no propagating or palliating factors and she has not taken anything for her pain. She states that she had some increased work of breathing but denies shortness of breath now. She was given a single dose of nitroglycerin sublingual and her pain is now a 3 out of 10. She was not given aspirin in the ambulance. She apparently also had a syncopal episode this morning. GENERAL: Well-developed well-nourished in no apparent distress SKIN: Focused skin assessment warm/dry. HEAD: Atraumatic. Normocephalic. EYES: Pupils equal and round. No scleral icterus. No injection or drainage. ENT: No nasal bleeding or discharge. Mucous membranes pink and moist. NECK: Trachea midline. No JVD. CARDIOVASCULAR: Regular rate and rhythm. No murmur appreciated. RESPIRATORY: No accessory muscle use. Clear to auscultation. Breath sounds equal bilaterally. GASTROINTESTINAL: Abdomen soft, non-tender, nondistended. MUSCULOSKELETAL: No obvious deformities. No clubbing. No cyanosis. No edema. NEUROLOGICAL: Awake and alert. No obvious cranial nerve deficits. Motor grossly within normal limits. Normal speech. PSYCHIATRIC: Appropriate mood and affect; insight and judgment normal. Data Data Last Documented VS Vital Signs Date Time Temp Pulse Resp B/P (MAP) Pulse Ox O2 Delivery O2 Flow Rate FiO2 9/25/17 09:54 107/65 (79) 05/04/17 09:33 98 Room Air 05/04/17 08:52 19 05/04/17 08:52 2.00 05/04/17 08:43 89 Orders Orders Electrocardiogram (05/04/17 08:57) Ckmb (Isoenzyme) Profile (05/04/17 08:57) Complete Blood Count With Diff (05/04/17 08:57) Magnesium (Mg) (05/04/17 08:57) Prothrombin Time / Inr (Pt) (05/04/17 08:57) Act Partial Throm Time (Ptt) (05/04/17 08:57) Troponin I (05/04/17 08:57) Chest, Single Ap (05/04/17 08:57) Ecg Monitoring (05/04/17 08:57) Bilateral Bp Monitoring (05/04/17 08:57) Iv Access Insert/Monitor (05/04/17 08:57) Oximetry (05/04/17 08:57) Oxygen Administration (05/04/17 08:57) Aspirin Chew (Aspirin Chew) (05/04/17 09:00) Sodium Chloride 0.9% Flush (Ns Flush) (05/04/17 09:00) Comprehensive Metabolic Panel (05/04/17 09:08) Lipase (05/04/17 09:08) Drug Screen, Random Urine (05/04/17 09:10) Admit Order (Ed Use Only) (05/04/17 10:27) Labs Laboratory Tests Test 05/04/17 09:00 White Blood Count 5.7 TH/MM3 Red Blood Count 4.32 MIL/MM3 Hemoglobin 14.0 GM/DL Hematocrit 42.6 % Mean Corpuscular Volume 98.5 FL Mean Corpuscular Hemoglobin 32.4 PG Mean Corpuscular Hemoglobin Concent 32.9 % Red Cell Distribution Width 13.4 % Platelet Count 272 TH/MM3 Mean Platelet Volume 7.3 FL Neutrophils (%) (Auto) 64.1 % Lymphocytes (%) (Auto) 24.3 % Monocytes (%) (Auto) 7.9 % Eosinophils (%) (Auto) 2.9 % Basophils (%) (Auto) 0.8 % Neutrophils # (Auto) 3.6 TH/MM3 Lymphocytes # (Auto) 1.4 TH/MM3 Monocytes # (Auto) 0.4 TH/MM3 Eosinophils # (Auto) 0.2 TH/MM3 Basophils # (Auto) 0.0 TH/MM3 CBC Comment DIFF FINAL Differential Comment Prothrombin Time 10.3 SEC Prothromb Time International Ratio 0.9 RATIO Activated Partial Thromboplast Time 26.8 SEC Blood Urea Nitrogen 20 MG/DL Creatinine 0.58 MG/DL Random Glucose 87 MG/DL Total Protein 6.7 GM/DL Albumin 3.6 GM/DL Calcium Level 8.7 MG/DL Alkaline Phosphatase 77 U/L Aspartate Amino Transf (AST/SGOT) 16 U/L Alanine Aminotransferase (ALT/SGPT) 20 U/L Total Bilirubin 0.4 MG/DL Sodium Level 141 MEQ/L Potassium Level 4.0 MEQ/L Chloride Level 109 MEQ/L Carbon Dioxide Level 24.0 MEQ/L Anion Gap 8 MEQ/L Estimat Glomerular Filtration Rate 106 ML/MIN Magnesium Level 2.0 MG/DL Total Creatine Kinase 86 U/L Troponin I LESS THAN 0.02 NG/ML Lipase 99 U/L [facility] Medical Decision Making Medical Screen Exam Complete: Yes Emergency Medical Condition: Yes Differential Diagnosis NSTEMI vs Angina vs GERD vs Atypical chest pain Narrative Course 61-year-old female with a recent history of CVA presents to the emergency department via ambulance for chest pain 3 days. She described the pain as mid sternal, constant pain without palliative or provoking factors. She apparently also had an unwitnessed syncopal episode this morning. She has no history of syncopal episodes. Nitro SL was given by the ambulance crew and her pain was decreased. We gave her aspirin upon arrival. During the emergency department stay, she remained stable and her chest pain remained unchanged. 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 Labs and vital signs remain stable. Orthostatics negative. Physical exam unremarkable. Because of her risk factors, cardiac history, and syncope we'll admit for observation. Diagnosis Primary Impression: Chest pain Qualified Codes: R07.9 - Chest pain, unspecified Admitting Information Admitting Physician Requests: Admit Condition: Stable Mariaa Do May 04, 2017 09:08
--- NOTE | 2017-05-04 09:12 | PD ---
Physical Exam Date Seen by Provider: May 04, 2017 Time Seen by Provider: 09:09 Narrative 61-year-old female came to the emergency room with history of substernal chest pain and epigastric chest pain that has been going on for past 3-4 days. Patient has been attributing that to heartburn. This morning her boss found her passed out in the office. Patient says she has been vomiting some today and last night. Patient recently was diagnosed with stroke and was in the hospital about a month or 2 months ago. I palpated her abdomen and there was no tenderness elicited. She also has history of seizures. She's been seen by the PA and I'm supervising her. Workup would include cardiac and if blood test is negative she will be admitted to the chest pain center to be seen by flight communications operator. Patient says she had 2 stress test done in the past and the last one being the 2009. Patient is a smoker. Data Data Last Documented VS Orders Orders Electrocardiogram (05/04/17 08:57) Ckmb (Isoenzyme) Profile (05/04/17 08:57) Complete Blood Count With Diff (05/04/17 08:57) Magnesium (Mg) (05/04/17 08:57) Prothrombin Time / Inr (Pt) (05/04/17 08:57) Act Partial Throm Time (Ptt) (05/04/17 08:57) Troponin I (05/04/17 08:57) Chest, Single Ap (05/04/17 08:57) Ecg Monitoring (05/04/17 08:57) Bilateral Bp Monitoring (05/04/17 08:57) Iv Access Insert/Monitor (05/04/17 08:57) Oximetry (05/04/17 08:57) Oxygen Administration (05/04/17 08:57) Aspirin Chew (Aspirin Chew) (05/04/17 09:00) Sodium Chloride 0.9% Flush (Ns Flush) (05/04/17 09:00) Comprehensive Metabolic Panel (05/04/17 09:08) Lipase (05/04/17 09:08) Admit Order (Ed Use Only) (05/04/17 10:27) Labs Laboratory Tests Test 05/04/17 09:00 White Blood Count 5.7 TH/MM3 Red Blood Count 4.32 MIL/MM3 Hemoglobin 14.0 GM/DL Hematocrit 42.6 % Mean Corpuscular Volume 98.5 FL Mean Corpuscular Hemoglobin 32.4 PG Mean Corpuscular Hemoglobin Concent 32.9 % Red Cell Distribution Width 13.4 % Platelet Count 272 TH/MM3 Mean Platelet Volume 7.3 FL Neutrophils (%) (Auto) 64.1 % Lymphocytes (%) (Auto) 24.3 % Monocytes (%) (Auto) 7.9 % Eosinophils (%) (Auto) 2.9 % Basophils (%) (Auto) 0.8 % Neutrophils # (Auto) 3.6 TH/MM3 Lymphocytes # (Auto) 1.4 TH/MM3 Monocytes # (Auto) 0.4 TH/MM3 Eosinophils # (Auto) 0.2 TH/MM3 Basophils # (Auto) 0.0 TH/MM3 CBC Comment DIFF FINAL Differential Comment Prothrombin Time 10.3 SEC Prothromb Time International Ratio 0.9 RATIO Activated Partial Thromboplast Time 26.8 SEC Blood Urea Nitrogen 20 MG/DL Creatinine 0.58 MG/DL Random Glucose 87 MG/DL Total Protein 6.7 GM/DL Albumin 3.6 GM/DL Calcium Level 8.7 MG/DL Alkaline Phosphatase 77 U/L Aspartate Amino Transf (AST/SGOT) 16 U/L Alanine Aminotransferase (ALT/SGPT) 20 U/L Total Bilirubin 0.4 MG/DL Sodium Level 141 MEQ/L Potassium Level 4.0 MEQ/L Chloride Level 109 MEQ/L Carbon Dioxide Level 24.0 MEQ/L Anion Gap 8 MEQ/L Estimat Glomerular Filtration Rate 106 ML/MIN Magnesium Level 2.0 MG/DL Total Creatine Kinase 86 U/L Troponin I LESS THAN 0.02 NG/ML Lipase 99 U/L [facility] Supervised Visit with MITCHELL: Yes Interpretation(s) Twelve-lead EKG was reviewed by me. Normal sinus rhythm, left axis deviation, nonspecific ST-T wave changes. Heart rate of 91 bpm Diagnosis Primary Impression: Syncope Qualified Codes: R55 - Syncope and collapse Additional Impression: Chest pain Qualified Codes: R07.9 - Chest pain, unspecified Admitting Information Admitting Physician Requests: Azar Peterson MD May 04, 2017 09:12
[2017-05-04] MEDS: SODIUM CHLORIDE 0.9% FLUSH 10 ML FLUSH IVF PRN ×4 (09:26→20:38)
[2017-05-04 09:30] LABS: AUTOMATED NEUTROPHIL # 3.6 TH/MM3 (1.8-7.7); BASOPHIL % 0.8 % (0.0-2.0); EOSINOPHIL # 0.2 TH/MM3 (0-0.4); EOSINOPHIL % 2.9 % (0.0-4.0); HEMATOCRIT 42.6 % (35.0-46.0); HEMO FLAGS DIFF FINAL; LYMPH % 24.3 % (9.0-44.0); LYMPHOCYTE # 1.4 TH/MM3 (1.0-4.8); MEAN CELL VOLUME 98.5 FL (80.0-100.0); MEAN CORPUSCULAR HEMOGLOBIN 32.4 PG (27.0-34.0); MEAN CORPUSCULAR HGB CONC 32.9 % (32.0-36.0); MONO % 7.9 % (0.0-8.0); NEUT % 64.1 % (16.0-70.0); PLATELET COUNT 272 TH/MM3 (150-450); RED BLOOD COUNT 4.32 MIL/MM3 (4.00-5.30); RED CELL DISTRIBUTION WIDTH 13.4 % (11.6-17.2); WHITE BLOOD COUNT 5.7 TH/MM3 (4.0-11.0)
[2017-05-04 09:40] LABS: APTT (PATIENT) 26.8 SEC (24.3-30.1); INTERNATIONAL NORMALIZED RATIO 0.9 RATIO; PROTHROMBIN TIME - PATIENT 10.3 SEC (9.8-11.6)
[2017-05-04 09:55] LABS: ANION GAP 8 MEQ/L (5-15); AST (GOT) 16 U/L (15-37); BLOOD UREA NITROGEN 20 MG/DL (7-18); CHLORIDE 109 MEQ/L (98-107); GLOMERULAR FILTRATION RATE 106 ML/MIN (>89); SODIUM (NA) 141 MEQ/L (136-145)
--- NOTE | 2017-05-04 09:56 | RADRPT ---
EXAM DATE/TIME: 05/04/2017 09:35 [facility] COMPARISON: CHEST SINGLE AP, March 31, 2017, 11:21. INDICATIONS : Chest pain for 3 days, short of breath, nausea, smoker, no chest surgery MEDICAL HISTORY : Stroke. seizure SURGICAL HISTORY : Appendectomy. cervical fusion ENCOUNTER: Initial ACUITY: 3 days PAIN SCORE: 6/10 LOCATION: Bilateral chest FINDINGS: A single view of the chest demonstrates the lungs to be symmetrically aerated without evidence of mas s, infiltrate or effusion. The cardiomediastinal contours are unremarkable. Osseous structures are intact. CONCLUSION: 1. No acute abnormality or significant interval change. Enrique Donato MD on May 04, 2017 at 9:54 Board Certified Radiologist. This report was verified electronically.
[2017-05-04 09:58] LABS: ALKALINE PHOSPHATASE 77 U/L (45-117); ALT (GPT) 20 U/L (10-53); TOTAL BILIRUBIN ADULT 0.4 MG/DL (0.2-1.0)
[2017-05-04 10:02] LABS: CREATINE KINASE 86 U/L (26-192)
[2017-05-04] MEDS: SODIUM CHLOR 0.9% 1000 ML INJ 1,000 ML IV SCH (12:53)
--- NOTE | 2017-05-04 13:44 | RADRPT ---
EXAM DATE/TIME: 05/04/2017 12:21 [facility] COMPARISON: MRI BRAIN W & W/O CONTRAST, March 12, 2017, 19:09. MRA BRAIN W/O CONTRAST, March 12, 2017, 19:09. INDICATIONS : CVA. MEDICAL HISTORY : Cerebrovascular disease. Stroke SURGICAL HISTORY : Fusion, cervical. Appendectomy. Overy removed in the ENCOUNTER: Initial ACUITY: 1 day PAIN SCORE: 1/10 LOCATION: Bilateral cranial TECHNIQUE: Multiplanar, multisequence MRI of the brain was performed without contrast. FINDINGS: CEREBRUM: The examination demonstrates a small amount of abnormal diffusion signal in the basal ganglia on the left. This is decreased in size when compared to previous examination. The ventricles are normal in s ize and configuration. No mass lesion is identified. No abnormal extra-axial fluid collections are pr esent. No hemorrhage is identified. WHITE MATTER: There are scattered areas of increased T2 signal within the white matter most consistent with mild mi crovascular ischemic demyelinative change. These are similar in appearance to the previous examinatio n. POSTERIOR FOSSA: The cerebellum and brainstem are intact. The 4th ventricle is midline. The cerebellopontine angle is unremarkable. The cerebellar tonsils are normal in position. DIFFUSION IMAGING: No focal areas of restricted diffusion are seen. No evidence of acute infarction. EXTRACRANIAL: The visualized portions of the orbits and paranasal sinuses are unremarkable. CONCLUSION: 1. Subtle area of increased diffusion signal in the left basal ganglia decrease in size compared to t he previous likely representing subacute area of infarct. 2. Scattered areas of increased T2 signal white matter most consistent with microvascular ischemic de myelinative change. 3. No new abnormalities are evident. Cole Smiley MD on May 04, 2017 at 13:39 Board Certified Radiologist. This report was verified electronically.
--- NOTE | 2017-05-04 14:47 | HHI.HP ---
[facility] Primary Care Physician Cedrick Chase MD Admission Diagnosis chest pain, rule out ACS Diagnoses: Chief Complaint: chest pain x 3 days syncopal episode Travel History International Travel<30 Days: No Contact w/Intl Traveler <30 Da: No Traveled to Known Affected Are: No History of Present Illness patient is a 61-year-old female right handed with history of multiple TIAs/CVA admitted here in January 2017, February 2017 for seizure and in last March 2017 with weakness. Last MRI shows on March the left basal ganglia subacute infarct. Patient was sent home on Plavix, Keppra and ate atorvastatin. Patient states compliance. Patient is up ambulatory with no assistive devices. This morning patient states that she was she was sitting at home on the porch waiting to go for work when her boss who picks her up every morning saw her slumped over. No incontinence Was brought in here by [facility] and admitted for further evaluation. Patient denies any headache nausea vomiting or trauma prior to or after the episode. She did have some loose stools last evening. Denies any melena or hematochezia no fever or chills. Patient states last seizure episode was in March. Patient also states having chest pain intermittently for the past 3 days unrelated to effort or changes in position. Denies any recent fall. She still activities smokes 1 pack every 3 days denies any chronic alcohol use . She was set up to see Dr. Becker as an outpatient this Thursday to have a loop recorder. Denies any leg swelling nausea or vomiting. Patient admitted for further evaluation Past Family Social History Past Medical History History of TIA/CVA January 2017, February 2017 with seizure, March 2017. Last MRI on March shows a subacute left basal ganglia infarct. Past Surgical History No major surgeries Reported Medications Plavix 75 mg daily Keppra 500 mg twice a day 8 atorvastatin 40 mg daily Allergies: Coded Allergies: No Known Allergies (Verified , 03/31/17) Family History Noncontributory Social History Smokes 1 pack every 3 days Denies chronic alcohol use denies any substance abuse Physical Exam Vital Signs Vital Signs Date Time Temp Pulse Resp B/P (MAP) Pulse Ox O2 Delivery O2 Flow Rate FiO2 05/04/17 12:47 74 18 99/57 (71) 90 20 100/56 (71) 05/04/17 12:13 98/58 (71) 05/04/17 09:54 107/65 (79) 05/04/17 09:33 115/65 (82) 05/04/17 09:33 111/60 (77) 98 Room Air 05/04/17 09:33 97 Room Air 05/04/17 08:52 19 110/60 (77) 97 Room Air 05/04/17 08:52 Nasal Cannula 2.00 05/04/17 08:43 89 19 111/60 (77) 96 Physical Exam GENERAL: This is a well-nourished, well-developed patient, in no apparent distress. Awake alert oriented 3 SKIN: No rashes, ecchymoses or lesions. Cool and dry. HEAD: Atraumatic. Normocephalic. No temporal or scalp tenderness. EYES: Pupils equal round and reactive. Extraocular motions intact. No scleral icterus. No injection or drainage. ENT: Nose without bleeding, purulent drainage or septal hematoma. Throat without erythema, tonsillar hypertrophy or exudate. Uvula midline. Airway patent. Dry oral mucosa NECK: Trachea midline. No JVD or lymphadenopathy. Supple, nontender, no meningeal signs. CARDIOVASCULAR: Regular rate and rhythm without murmurs, gallops, or rubs. RESPIRATORY: Clear to auscultation. Breath sounds equal bilaterally. No wheezes , rales, or rhonchi. GASTROINTESTINAL: Abdomen soft, non-tender, nondistended. . No guarding. MUSCULOSKELETAL: Extremities without clubbing, cyanosis, or edema. No joint tenderness, effusion, or edema noted. No calf tenderness. Negative Homans sign bilaterally. NEUROLOGICAL: Awake and alert. Cranial nerves II through XII intact. Motor and sensory grossly within normal limits. Five out of 5 muscle strength in all muscle groups. Normal speech. Laboratory Laboratory Tests Test 05/04/17 09:00 White Blood Count 5.7 Red Blood Count 4.32 Hemoglobin 14.0 Hematocrit 42.6 Mean Corpuscular Volume 98.5 Mean Corpuscular Hemoglobin 32.4 Mean Corpuscular Hemoglobin Concent 32.9 Red Cell Distribution Width 13.4 Platelet Count 272 Mean Platelet Volume 7.3 Neutrophils (%) (Auto) 64.1 Lymphocytes (%) (Auto) 24.3 Monocytes (%) (Auto) 7.9 Eosinophils (%) (Auto) 2.9 Basophils (%) (Auto) 0.8 Neutrophils # (Auto) 3.6 Lymphocytes # (Auto) 1.4 Monocytes # (Auto) 0.4 Eosinophils # (Auto) 0.2 Basophils # (Auto) 0.0 CBC Comment DIFF FINAL Differential Comment Prothrombin Time 10.3 Prothromb Time International Ratio 0.9 Activated Partial Thromboplast Time 26.8 Blood Urea Nitrogen 20 Creatinine 0.58 Random Glucose 87 Total Protein 6.7 Albumin 3.6 Calcium Level 8.7 Alkaline Phosphatase 77 Aspartate Amino Transf (AST/SGOT) 16 Alanine Aminotransferase (ALT/SGPT) 20 Total Bilirubin 0.4 Sodium Level 141 Potassium Level 4.0 Chloride Level 109 Carbon Dioxide Level 24.0 Anion Gap 8 Estimat Glomerular Filtration Rate 106 Magnesium Level 2.0 Total Creatine Kinase 86 Troponin I LESS THAN 0.02 Lipase 99 Result Diagram: 05/04/17 0900 05/04/17 0900 Imaging Last Impressions Chest X-Ray 05/04/17 0857 Signed Impressions: Service Date/Time: Thursday, May 04, 2017 09:35 - CONCLUSION: 1. No acute abnormality or significant interval change. Enrique Donato MD Brain MRI 05/04/17 0000 Signed Impressions: Service Date/Time: Thursday, May 04, 2017 12:21 - CONCLUSION: 1. Subtle area of increased diffusion signal in the left basal ganglia decrease in size compared to the previous likely representing subacute area of infarct. 2. Scattered areas of increased T2 signal white matter most consistent with microvascular ischemic demyelinative change. 3. No new abnormalities are evident. Cole Smiley MD 12-lead EKG sinus rhythm no acute ST-T wave changes Today check EKG normal sinus rhythm no acute ST-T wave changes Caprini VTE Risk Assessment Caprini VTE Risk Assessment: Mod/High Risk (score >= 2) Caprini Risk Assessment Model Point Value = 1 Point Value = 2 Point Value = 3 Point Value = 5 Age 41-60 Minor surgery BMI > 25 kg/m2 Swollen legs Varicose veins or History of unexplained or recurrent spontaneous Oral contraceptives or hormone replacement Sepsis (< 1 month) Serious lung disease, including pneumonia (< 1 month) Abnormal pulmonary function Acute myocardial infarction Congestive heart failure (< 1 month) History of inflammatory bowel disease Medical patient at bed rest Age 61-74 Arthroscopic surgery Major open surgery (> 45 min) Laparoscopic surgery (> 45 min) Malignancy Confined to bed (> 72 hours) Immobilizing plaster cast Central venous access Age >= 75 History of VTE Family history of VTE Factor V Leiden Prothrombin [id number] Lupus anticoagulant Anticardiolipin antibodies Elevated serum homocysteine Heparin-induced thrombocytopenia Other congenital or acquired thrombophilia Stroke (< 1 month) Elective arthroplasty Hip, pelvis, or leg fracture Acute spinal cord injury (< 1 month) Prophylaxis Regimen Total Risk Factor Score Risk Level Prophylaxis Regimen 0-1 Low Early ambulation 2 Moderate Order ONE of the following: *Sequential Compression Device (SCD) *Heparin 5000 units SQ BID 3-4 Higher Order ONE of the following medications: *Heparin 5000 units SQ TID *Enoxaparin/Lovenox 40 mg SQ daily (WT < 150 kg, CrCl > 30 mL/min) *Enoxaparin/Lovenox 30 mg SQ daily (WT < 150 kg, CrCl > 10-29 mL/min) *Enoxaparin/Lovenox 30 mg SQ BID (WT < 150 kg, CrCl > 30 mL/min) AND/OR *Sequential Compression Device (SCD) 5 or more Highest Order ONE of the following medications: *Heparin 5000 units SQ TID (Preferred with Epidurals) *Enoxaparin/Lovenox 40 mg SQ daily (WT < 150 kg, CrCl > 30 mL/min) *Enoxaparin/Lovenox 30 mg SQ daily (WT < 150 kg, CrCl > 10-29 mL/min) *Enoxaparin/Lovenox 30 mg SQ BID (WT < 150 kg, CrCl > 30 mL/min) AND *Sequential Compression Device (SCD) Assessment and Plan Assessment and Plan 61-year-old female admitted for Syncopal episode. vs ? seizure episode. Patient had workup done before. Neurologically stable. MRA reviewed from previous admission. History of recent CVA neurologically stable MRI shows subacute left basal ganglia infarction. History of Seizure- ? seizure spells Consult Neurology-- was seen by Dr. Mora last admission. will increase Keppra to 1 gm po bid. Continue on Plavix 75 mg by mouth daily Echo reviewed from previous admission will check a d-dimer now if positive will do a CTA of the chest to rule out PE Atypical chest pain pain- musculoskeletal is very reproducible with even slight touch on the chest wall. EKG unremarkable. First set of troponins negative. Will get another set. doubt cardiac in origin. Dr. Forman consulted. Acute prerenal insufficiency mild elevated BUNs start gentle hydration. BMP in a.m. Chronic tobacco abuse. Patient counseled extensively Lovenox for DVT prophylaxis. Discussed Condition With Patient Physician Certification 2 Midnight Certification Type: Admission for Inpatient Services Order for Inpatient Services The services are ordered in accordance with Medicare regulations or non- Medicare payer requirements, as applicable. In the case of services not specified as inpatient-only, they are appropriately provided as inpatient services in accordance with the 2-midnight benchmark. Estimated LOS (days): 3 days is the estimated time the patient will need to remain in the hospital, assuming treatment plan goals are met and no additional complications. Post-Hospital Plan: Not yet determined Pacheco Walter MD May 04, 2017 14:47
[2017-05-04] MEDS ORDERED: ENOXAPARIN SODIUM 30 MG/0.3 ML SYRINGE SQ SCH (15:00)
--- NOTE | 2017-05-04 15:36 | MB ---
cc: ANTHONY ARMSTRONG DATE OF CONSULTATION: 05/04/2017 HISTORY OF PRESENT ILLNESS Ms. Lima is a 61-year-old white female known to my practice with a history of TIA/CVA and epilepsy. She was recently seen in our office and was supposed to undergo a LINQ monitor this week. She developed substernal chest discomfort which reproducible with chest palpation over the last several days. She also was found to have a syncopal episode on her porch when she was waiting to be picked up to go to work. She has no dyspnea or headache. She continues to smoke. PAST MEDICAL HISTORY 1. Epilepsy, epileptic syndrome. 2. Cerebral infarction due to embolism to the left middle cerebral artery. 3. Cervicalgia. 4. Spondylosis with radiculopathy. 5. Occipital . 6. Osteoarthritis. 7. Fibromyalgia. MEDICATIONS Medications at home include: 1. Plavix. 2. Keppra. 3. Atorvastatin. 4. Lunesta/eszopiclone. 5. Ibuprofen. 6. . 7. Acetaminophen. ALLERGIES None. SOCIAL HISTORY The patient continues to smoke. She drinks alcohol socially. FAMILY HISTORY Positive for heart disease. REVIEW OF SYSTEMS Otherwise negative. PHYSICAL EXAMINATION VITAL SIGNS: Blood pressure 100/56, pulse 74 and regular. HEENT: Negative. 2+ carotid upstrokes. No bruits. LUNGS: Clear. HEART: Regular with no murmur, gallop or rub. ABDOMEN: Soft. No bruits. EXTREMITIES: Without edema. 2+ distal pulses. NEUROLOGIC: Grossly intact. MUSCULOSKELETAL: Chest pain is easily reproducible with chest palpation. EKG EKG was reviewed and showed normal sinus rhythm, left atrial enlargement and incomplete right bundle branch block. LABORATORY Hemoglobin 14.0. Potassium 4.0. Creatinine 0.6. CK 86. Troponin less than 0.02. AST and ALT normal. NOTE Normal DIAGNOSIS 1. Syncope. 2. Noncardiac (musculoskeletal) chest pain. 3. Renal insufficiency. 4. Dehydration. 5. History of CVA. 6. Fibromyalgia. 7. Smoking. DISPOSITION Pat will be monitored on telemetry with serial enzymes and EKGs. Her chest pain is easily reproducible with chest palpation and is likely of musculoskeletal origin. She also has a history of epilepsy and her syncope certainly may be the result of a seizure. I will follow her cardiology during her hospitalization. I will also see her back for follow-up in our office after discharge. MD CHAD Baker/HUGO /2:57 PM /3:14 PM
[2017-05-04] MEDS: PANTOPRAZOLE SOD 40 MG DELAYED RELEASE TAB PO SCH (16:04)
[2017-05-04] MEDS: oxyCODONE/ACETAMINOPHEN 5 MG/325 MG TAB PO PRN (17:21)
[2017-05-04] MEDS: levETIRAcetam 500 MG TAB PO SCH (20:38)
[2017-05-04] MEDS ORDERED: ATORVASTATIN 40 MG TAB PO SCH (21:00)
[2017-05-04] MEDS ORDERED: levETIRAcetam 500 MG TAB PO SCH (21:00)
[2017-05-05] VITALS (10 sets, daily range): BP systolic 85–100; BP diastolic 50–68; PULSE 62–86; RESP 16–20; TEMP 97.4–99.5; O2SAT 97–98
[2017-05-05] MEDS: SODIUM CHLOR 0.9% 1000 ML INJ 1,000 ML IV SCH (02:18)
[2017-05-05] MEDS: oxyCODONE/ACETAMINOPHEN 5 MG/325 MG TAB PO PRN ×2 (04:59→10:16)
[2017-05-05 07:02] LABS: BICARBONATE 26.6 MEQ/L (21.0-32.0); POTASSIUM 3.7 MEQ/L (3.5-5.1)
[2017-05-05] MEDS ORDERED: CLOPIDOGREL 75 MG TAB PO SCH (09:00)
--- NOTE | 2017-05-05 09:23 | PD.CONS ---
History of Present Illness Service Neurology Consult Requested By medical Reason for Consult syncope Primary Care Physician Cedrick Chase MD History of Present Illness 61 y/o f admitted for recurrent syncope. seen by cardiology this admission. seen by neuro 03/2017 for left subcortical infarct. told to STOP TOBACCO use and placed on plavix and keppra. mri brain 05/04 no change. mra brain/carotids nml. follows with Dr Bustillos in our office. denies any clark/new weakness/vision loss. Past Family Social History Past Medical History left mca stroke 03/2017 headaches ?sz Past Surgical History No major surgeries Reported Medications Plavix 75 mg daily Keppra 500 mg twice a day 8 atorvastatin 40 mg daily Allergies: Coded Allergies: No Known Allergies (Verified , 03/31/17) Family History Noncontributory Social History Smokes 1 pack every 3 days Denies chronic alcohol use denies any substance abuse Review of Systems All other ROS: ROS reviewed as documented in chart Past Family Social History Allergies: Coded Allergies: No Known Allergies (Verified , 03/31/17) Active Ordered Medications Current Medications Medications (Trade) Dose Ordered Sig/Danica Route Start Time Stop Time Status Last Admin (NS Flush) 2 ml UNSCH PRN IVF 05/04/17 09:00 05/04/17 20:38 Sodium Chloride 1,000 ml @ 70 mls/hr [id number] IV 05/04/17 12:00 05/04/17 12:53 (Lipitor) 40 mg HS PO 05/04/17 21:00 05/04/17 20:38 (Plavix) 75 mg DAILY PO 05/05/17 09:00 (Lovenox Inj) 30 mg Q24H SQ 05/04/17 15:00 05/04/17 16:04 (Protonix) 40 mg DAILY PO 05/04/17 15:00 05/04/17 16:04 (Percocet 5-325 Mg) 1 tab Q6H PRN PO 05/04/17 16:15 05/05/17 04:59 (Keppra) 1,000 mg Q12HR PO 05/04/17 21:00 05/04/17 20:38 Exam I&O / VS Vital Signs Date Time Temp Pulse Resp B/P (MAP) Pulse Ox O2 Delivery O2 Flow Rate FiO2 05/05/17 07:00 98.2 76 16 91/50 (64) 97 05/05/17 06:00 68 05/05/17 05:00 66 05/05/17 04:00 97.4 66 18 100/59 (73) 98 05/05/17 03:00 86 05/05/17 02:00 65 05/05/17 00:00 97.9 75 16 85/56 (66) 97 05/05/17 00:00 75 05/04/17 20:00 76 05/04/17 19:00 97.5 76 16 104/60 (75) 96 05/04/17 18:00 76 05/04/17 17:00 74 05/04/17 16:00 78 05/04/17 15:23 97.5 80 16 105/56 (72) 97 05/04/17 14:56 125/65 (85) 100 Nasal Cannula 2.00 05/04/17 12:47 74 18 99/57 (71) 90 20 100/56 (71) 05/04/17 12:13 98/58 (71) 05/04/17 09:54 107/65 (79) 05/04/17 09:33 115/65 (82) 05/04/17 09:33 111/60 (77) 98 Room Air 05/04/17 09:33 97 Room Air General: Alert and Oriented, No acute distress Eye: EOMI Respiratory: Lungs CTA, Non-labored respirations, BS equal Cardiology: Normal rate, Regular Rhythm Musculoskeletal: Swelling Neurologic: Alert, Oriented, Normal sensory, CN II-XII intact, Normal DTR's Psychiatric: Cooperative, Appropriate mood & affect Exam Comments ox 3, follows, eomi, face sym, mild rt hemiparesis 5-/5 Review/Management Diagnosis/Plan: (1) Syncope ICD Codes: R55 - Syncope and collapse Status: Acute Plan: 03/2017 eeg- left sharp activity; breakthrough sz a possibility recs loop recorder per cardiology agree with increasing keppra for possibility of sz eeg p.t. d/c planning from neuro today no driving/climbing heights/operating dangerous machinery x 6 months of being sz /spell free outpatient f/u at our office in 2 weeks Tobacco cessation; pt understands risk of recurrent stroke/mi/disability/cancer , etc.. by continuing this habit (2) Chronic ischemic left MCA stroke ICD Codes: I69.30 - Unspecified sequelae of cerebral infarction Status: Chronic Plan: plavix/statin (3) Tobacco consumption ICD Codes: Z72.0 - Tobacco use Status: Chronic (4) HTN (hypertension) ICD Codes: I10 - Essential (primary) hypertension Status: Chronic Problem Qualifiers (1) Syncope: (2) HTN (hypertension): Qualified Codes: I10 - Essential (primary) hypertension Fidel Armstrong MD May 05, 2017 09:23
[2017-05-05] MEDS: PANTOPRAZOLE SOD 40 MG DELAYED RELEASE TAB PO SCH (09:26)
[2017-05-05] MEDS: levETIRAcetam 500 MG TAB PO SCH (09:26)
--- NOTE | 2017-05-05 11:58 | EKG ---
Date Performed: 05/04/2017 Time Performed: 08:48:28 PTAGE: 61 years EKG: Sinus rhythm POSSIBLE LEFT ATRIAL ENLARGEMENT INCOMPLETE RIGHT BUNDLE BRANCH BLOCK BORDERLINE ECG Compared to fredrick or tracing no significant change PREVIOUS TRACING : 03/31/2017 10.22 DOCTOR: Jak Herndon Interpretating Date/Time 05/05/2017 11:55:12
--- NOTE | 2017-05-05 14:42 | HHI.PR ---
Subjective Remarks no spells, telemetry sinus no dizziness, headaches, ambulating Objective Vitals Vital Signs Date Time Temp Pulse Resp B/P (MAP) Pulse Ox O2 Delivery O2 Flow Rate FiO2 05/05/17 13:21 20 05/05/17 12:24 62 05/05/17 11:00 99.5 80 16 96/68 (77) 05/05/17 07:00 98.2 76 16 91/50 (64) 97 05/05/17 06:00 68 05/05/17 05:00 66 05/05/17 04:00 97.4 66 18 100/59 (73) 98 05/05/17 03:00 86 05/05/17 02:00 65 05/05/17 00:00 97.9 75 16 85/56 (66) 97 05/05/17 00:00 75 05/04/17 20:00 76 05/04/17 19:00 97.5 76 16 104/60 (75) 96 05/04/17 18:00 76 05/04/17 17:00 74 05/04/17 16:00 78 05/04/17 15:23 97.5 80 16 105/56 (72) 97 05/04/17 14:56 125/65 (85) 100 Nasal Cannula 2.00 I/O 05/04/17 05/04/17 05/04/17 05/05/17 05/05/17 05/05/17 07:00 15:00 23:00 07:00 15:00 23:00 Intake Total 240 ml 360 ml Output Total 900 ml Balance 240 ml -540 ml Intake Oral 240 ml 360 ml Output Urine Total 900 ml Result Diagram: 05/04/17 0900 05/05/17 0538 Imaging Last Impressions Chest X-Ray 05/04/17 0857 Signed Impressions: Service Date/Time: Thursday, May 04, 2017 09:35 - CONCLUSION: 1. No acute abnormality or significant interval change. Enrique Donato MD Brain MRI 05/04/17 0000 Signed Impressions: Service Date/Time: Thursday, May 04, 2017 12:21 - CONCLUSION: 1. Subtle area of increased diffusion signal in the left basal ganglia decrease in size compared to the previous likely representing subacute area of infarct. 2. Scattered areas of increased T2 signal white matter most consistent with microvascular ischemic demyelinative change. 3. No new abnormalities are evident. Cole Smiley MD Objective Remarks awake mina lert, oriented x 3,s peech clear anciteric lungs clear regular rhythm abdomen soft, nontender extremities no edema neuro exam- unremarkable A/P Assessment and Plan 61-year-old female admitted for Syncopal episode. vs ? seizure episode. Patient had workup done before. Neurologically stable. MRA reviewed from previous admission. EEG done- will ff up. Seen by neurology, cleared for DC OP ff up with Dr.Scott Mejia increased to 1 gm p bid History of recent CVA neurologically stable MRI shows subacute left basal ganglia infarction. continue on Plavix Continue on Plavix 75 mg by mouth daily Echo reviewed from previous admission d dimer normal Atypical chest pain pain- musculoskeletal is very reproducible with even slight touch on the chest wall. EKG unremarkable. First set of troponins negative. Will get another set. doubt cardiac in origin. Dr. Forman consulted. OP ff up tomorrow for loop recorder placement Acute prerenal insufficiency mild elevated BUNs start gentle hydration. resolved encoruage hydration po Chronic tobacco abuse. Patient counseled extensively- again DC home today heart healthy diet activity as tolerated. No heights, driving x 6months. D/w her needs adequate sleep 8 hours. avoid sleep deprivation meds- continue home meds. Plavix . Luippra up to 1 gm po bid Pacheco Walter MD May 05, 2017 14:42
[2017-05-05] MEDS ORDERED: LEVE500 PO (14:49)
--- NOTE | 2017-05-05 21:56 | MG ---
cc: JORDAN SIMS Lab No: Date: 05/05/2017 Age: Sex: F Race: ELECTROENCEPHALOGRAM NUMBER [id number] Hyperventilation not performed. Borderline hyperactive thyroid. Seizures with . Alcohol use. Left subcortical infarct. MEDICATIONS 1. Plavix. 2. Keppra. 3. Lovenox. DESCRIPTION What appears to be some sleep activity is seen with small spindles. The recording overall is synchronous and symmetric. Some beta rhythms are seen which could be medication effect. Photic stimulation was performed without significant posterior driving. IMPRESSION A generally unremarkable sleep recording. There is some medication effect but no seizure activity was noted. No hemisphere asymmetry was seen. MD ALESHIA Henry/COLTON /9:41 PM /9:49 PM
[2017-05-06] MEDS ORDERED: KEPP10002 PO (13:16)
[2017-05-06] MEDS ORDERED: BUTA1TAB30 PO (13:16)
[2017-05-06] MEDS ORDERED: PLAV75TA29 PO (13:16)
[2017-05-06] MEDS ORDERED: ATOR40TA16 PO (13:16)
[2017-05-06] MEDS ORDERED: IBUP800T23 PO (13:16)
== END 2017-05-05 15:50 | disposition home or self-care (01) | DRG 101 ==
LOC: NEPC 08:38 → NEDA 10:33 → OBSVTOIN 12:00 → HCIS 14:59
PROVIDERS: ADMIT Internal Medicine; ATTEND Internal Medicine
DX: G40.909 Epilepsy, unspecified, not intractable, without status epilepticus (principal); I10 Essential (primary) hypertension; R55 Syncope and collapse; R07.9 Chest pain, unspecified; F17.210 Nicotine dependence, cigarettes, uncomplicated; Z86.73 Personal history of transient ischemic attack (TIA), and cerebral infarction without residual deficits; N28.9 Disorder of kidney and ureter, unspecified; Z79.01 Long term (current) use of anticoagulants; M19.90 Unspecified osteoarthritis, unspecified site; M79.7 Fibromyalgia; E86.0 Dehydration; E78.00 Pure hypercholesterolemia, unspecified; F32.9 Major depressive disorder, single episode, unspecified; F41.9 Anxiety disorder, unspecified
CPT/HCPCS: 70551; 71010; 80048; 80053; 80177; 82550; 83690; 83735; 84484; 85025; 85379; 85610; 85730; 93005; 95819; 96372; G0378; J1650; J7030

== ENCOUNTER 2017-05-06 11:40 | Day surgery (SDC) | payer BC ==
[~2017-05-06 11:40] MED LIST changes: -ALPR.25 PO; -ASPI81TA11 PO; +LUNE1TAB6 PO; -REST15CA PO
[2017-05-06] MEDS ORDERED: MIDAZOLAM HCL 5 MG/5 ML VIAL ONE (13:02)
[2017-05-06] MEDS ORDERED: ceFAZolin INJ 1,000 MG VIAL ONE (13:10)
[2017-05-06] MEDS ORDERED: KEPP10002 PO (13:16)
[2017-05-06] MEDS ORDERED: ATOR40TA16 PO (13:16)
[2017-05-06] MEDS ORDERED: IBUP800T23 PO (13:16)
[2017-05-06] MEDS ORDERED: PLAV75TA29 PO (13:16)
[2017-05-06] MEDS ORDERED: BUTA1TAB30 PO (13:16)
--- NOTE | 2017-05-07 06:36 | MR ---
cc: ANTHONY ARMSTRONG DATE 05/06/2017 INDICATIONS Cryptogenic stroke, evaluation for atrial fibrillation. PROCEDURE PERFORMED 1. Placement of Medtronic Reveal LINQ MRI compatible loop Monitor. 2. Moderate sedation MEDICATIONS Versed IV, Fentanyl IV ACCESS SITE Left subclavicular area. EQUIPMENT USED Medtronic Reveal LINQ model LMQ11 MRI compatible loop monitor serial number [id number]. PROCEDURE After the patient was prepped and draped in the usual sterile manner, local anesthesia was applied. Medtronic Reveal LINQ MRI compatible monitor was placed to the left anterior chest without difficulties. R-wave was 0.72. The patient remained stable and was discharged medhat in stable condition. DIAGNOSIS Successful placement of Medtronic Reveal LINQ MRI compatible loop monitor. DISPOSITION Ms. Lima will continue her medical program as she heads back for a wound check in our office within two weeks. MD CHAD Baker/ELYSIA /2:07 PM /6:28 AM
== END 2017-05-06 14:45 | disposition home or self-care (01) ==
LOC: HDOC 11:40 → HDIC 11:40 → HDOC 14:45
PROVIDERS: ATTEND Internal Medicine Interventional Cardiology
DX: I63.9 Cerebral infarction, unspecified (principal)
CPT/HCPCS: 33282; C1764; J0690; J2250; J3010

== ENCOUNTER 2017-05-19 10:21 | Observation (INO) | payer BC ==
[~2017-05-19] VITALS: Ht 154.9 cm; Wt 51.0 kg
[~2017-05-19 10:21] MED LIST changes: +BUTA1TAB30 PO; -CEPH-460 PO; -CLOP75TA PO; +IBUP800T23 PO; +KEPP10002 PO; -LEVE500 PO; +PLAV75TA29 PO
[2017-05-19 10:23] VITALS: BP 131/60; PULSE 93; RESP 16; TEMP 97.6; O2SAT 100
[2017-05-19] MEDS ORDERED: SODIUM CHLOR 0.9% 1000 ML INJ 1,000 ML IV ONE (10:27)
--- NOTE | 2017-05-19 10:39 | PD ---
HPI Chief Complaint: Neuro Symptoms/ Deficits Time Seen by Provider: 10:25 Travel History International Travel<30 days: No Contact w/Intl Traveler<30days: No Traveled to known affect area: No History of Present Illness HPI 61-year-old female states at 9 AM she felt lightheaded and sometime after that she developed a headache and pain to her left lower face and pain that went into her left shoulder. She denies any weakness, speech changes or other concurrent complaints. She states she discussed her symptoms with her primary Dr. Dr. Chase who requested she come to the emergency room for evaluation. She states Dr. Bustillos is her neurologist. She states she recently had a monitor for her heart place and was in the hospital. She does have history of seizures but did not have a seizure today per her family. Patient denies any other concurrent complaints at this time. PFSH Past Medical History Hx Anticoagulant Therapy: Yes Arthritis: No Autoimmune Disease: No Blood Disorders: No Anxiety: Yes Depression: Yes Heart Rhythm Problems: No Cancer: No Cardiovascular Problems: Yes High Cholesterol: Yes Chest Pain: No Congestive Heart Failure: No Cerebrovascular Accident: Yes Diabetes: No Diminished Hearing: No Endocrine: Yes Fibromyalgia: Yes Gastrointestinal Disorders: No Genitourinary: Yes Headaches: Yes Hepatitis: No Hiatal Hernia: No Hypertension: No Immune Disorder: No Implanted Vascular Access Dvce: No Kidney Stones: Yes Musculoskeletal: Yes (DEGENERATIVE DISC DISEASE PER PT,NECK BACK , ARTHRTIS) Neurologic: Yes (NUMBNESS AND TINGLING (-2016)) Psychiatric: No Reproductive: No Respiratory: No Migraines: Yes Myocardial Infarction: No Renal Failure: No Seizures: Yes (one during 32 years ago) Thyroid Disease: Yes (Borderline hyperactive thyroid) Ulcer: No Menopausal: Yes Ovarian Cysts: Yes Past Surgical History Abdominal Surgery: Yes (APPY, OVARY RUPTURED AND REPAIRED) Appendectomy: Yes Cardiac Surgery: No Ear Surgery: No Endocrine Surgery: No Eye Surgery: No Genitourinary Surgery: Yes (pilonidal cysts) Gynecologic Surgery: No Neurologic Surgery: No Oral Surgery: No Thoracic Surgery: No Other Surgery: Yes Social History Alcohol Use: Yes (OCC) Tobacco Use: Yes (08/12 PPD) Substance Use: No Allergies-Medications (Allergen,Severity, Reaction): Coded Allergies: No Known Allergies (Verified , 03/31/17) Reported Meds & Prescriptions Reported Meds & Active Scripts Active Reported Butalbital-Acetaminophen 50-325 Mg Tab 1-2 Tab PO Q4HR PRN Do not exceed 6 tablets per day. Ibuprofen 800 Mg Tab 800 Mg PO Q8H PRN Atorvastatin (Atorvastatin Calcium) 40 Mg Tab 40 Mg PO HS Keppra (Levetiracetam) 1,000 Mg Tab 1,000 Mg PO BID Plavix (Clopidogrel Bisulfate) 75 Mg Tab 75 Mg PO HS Lunesta (Eszopiclone) 1 Mg Tab 1 Mg PO HS PRN Review of Systems Except as stated in HPI: all other systems reviewed are Neg Physical Exam Narrative GENERAL: Well-nourished, well-developed patient. SKIN: Warm and dry. HEAD: Normocephalic and atraumatic. EYES: No injection or drainage. ENT: No nasal drainage noted. NECK: Supple, trachea midline. CARDIOVASCULAR: Regular rate and rhythm RESPIRATORY: Breath sounds equal bilaterally. No accessory muscle use. GASTROINTESTINAL: Abdomen soft, non-tender, nondistended. EXTREMITIES: No edema. NEUROLOGICAL: Awake and alert. Patient states left lower face feels tingly but sensory otherwise nonfocal, no pronator drift, no facial droop, equal grasp bilaterally on second attempt, 5 out of 5 in all 4 extremities including second attempt of right leg Data Data Last Documented VS Vital Signs Date Time Temp Pulse Resp B/P (MAP) Pulse Ox O2 Delivery O2 Flow Rate FiO2 05/19/17 10:23 97.6 93 16 131/60 (83) [address] Brain W/O Iv Contrast(Rout) (05/19/17 10:26) Diet Npo (05/19/17 Lunch) Activity Bed Rest (05/19/17 ) Electrocardiogram (05/19/17 ) Prothrombin Time / Inr (Pt) (05/19/17 10:27) Act Partial Throm Time (Ptt) (05/19/17 10:27) Complete Blood Count With Diff (05/19/17 10:27) Fibrinogen (05/19/17 10:27) Creatine Kinase (Cpk) (05/19/17 10:27) Troponin I (05/19/17 10:27) Ua Includes Microscopic (05/19/17 10:27) Type And Screen (05/19/17 10:27) Chest, Single Ap (05/19/17 ) Consult Neurology (05/19/17 ) Blood Glucose (05/19/17 10:27) Ecg Monitoring (05/19/17 10:27) Neuro Checks Q2HX12,Q4H (05/19/17 10:27) Nursing Bedside Swallow Assess .ONCE (05/19/17 10:27) Iv Access Insert/Monitor (05/19/17 10:27) NPO (05/19/17 10:27) Oximetry (05/19/17 10:27) Sodium Chlor 0.9% 1000 Ml Inj (Ns 1000 M (05/19/17 10:27) Resp Oxygen Cale C Titrat 1-4 L (05/19/17 10:27) Comprehensive Metabolic Panel (05/19/17 10:27) Ondansetron Inj (Zofran Inj) (05/19/17 10:45) (Hub Use Only)Inp Phy Cons/Ref (05/19/17 ) Admit Order (Ed Use Only) (05/19/17 12:54) Labs Laboratory Tests Test 05/19/17 10:35 White Blood Count 8.4 TH/MM3 Red Blood Count 4.44 MIL/MM3 Hemoglobin 14.4 GM/DL Hematocrit 43.6 % Mean Corpuscular Volume 98.2 FL Mean Corpuscular Hemoglobin 32.5 PG Mean Corpuscular Hemoglobin Concent 33.1 % Red Cell Distribution Width 13.2 % Platelet Count 307 TH/MM3 Mean Platelet Volume 7.6 FL Neutrophils (%) (Auto) 69.0 % Lymphocytes (%) (Auto) 21.6 % Monocytes (%) (Auto) 7.5 % Eosinophils (%) (Auto) 1.1 % Basophils (%) (Auto) 0.8 % Neutrophils # (Auto) 5.8 TH/MM3 Lymphocytes # (Auto) 1.8 TH/MM3 Monocytes # (Auto) 0.6 TH/MM3 Eosinophils # (Auto) 0.1 TH/MM3 Basophils # (Auto) 0.1 TH/MM3 CBC Comment DIFF FINAL Differential Comment Prothrombin Time 10.5 SEC Prothromb Time International Ratio 1.0 RATIO Activated Partial Thromboplast Time 27.9 SEC Fibrinogen 413 mg/dL Blood Urea Nitrogen 12 MG/DL Creatinine 0.65 MG/DL Random Glucose 104 MG/DL Total Protein 7.3 GM/DL Albumin 3.8 GM/DL Calcium Level 8.8 MG/DL Alkaline Phosphatase 92 U/L Aspartate Amino Transf (AST/SGOT) 16 U/L Alanine Aminotransferase (ALT/SGPT) 20 U/L Total Bilirubin 0.3 MG/DL Sodium Level 139 MEQ/L Potassium Level 4.2 MEQ/L Chloride Level 106 MEQ/L Carbon Dioxide Level 25.7 MEQ/L Anion Gap 7 MEQ/L Estimat Glomerular Filtration Rate 93 ML/MIN Total Creatine Kinase 60 U/L Troponin I LESS THAN 0.02 NG/ML MDM Medical Decision Making Medical Screen Exam Complete: Yes Emergency Medical Condition: Yes Medical Record Reviewed: Yes (past history confirm, recent hospitalization reviewed, on Plavix and Keppra, recent neurology note reviewed, recent MRI and MRA imaging reviewed) Interpretation(s) CBC & BMP Diagram 05/19/17 10:35 Total Protein 7.3, Albumin 3.8, Calcium Level 8.8, Alkaline Phosphatase 92, Aspartate Amino Transf (AST/SGOT) 16, Alanine Aminotransferase (ALT/SGPT) 20, Total Bilirubin 0.3 Last [address] 05/19/17 1026 Signed Impressions: Service Date/Time: Friday, May 19, 2017 10:25 - CONCLUSION: 1. No evidence of acute intracranial pathology. No masses are identified. Landon Garcia MD Chest X-Ray 05/19/17 0000 Signed Impressions: Service Date/Time: Friday, May 19, 2017 11:27 - CONCLUSION: No acute disease. Steve Brantley MD Differential Diagnosis TIA, mass, bleed, stroke, cardiac Narrative Course Will check labs, CT brain and discuss with neurology personally called ct to expedite scanning, nurse took patient over for imaging at [address] scan, no change patient updated on recheck again and denies new complaints, agrees to observation, no change in neuro status Physician Communication Physician Communication dr sr states to check testing and no stroke alert given symptoms as no indication at this time for TPA, needs also eeg dr kumar agrees to admit Diagnosis Primary Impression: Left facial numbness Admitting Information Admitting Physician Requests: Observation Rosanna Holly MD May 19, 2017 10:39
[2017-05-19 10:42] LABS: AUTOMATED NEUTROPHIL # 5.8 TH/MM3 (1.8-7.7); BASOPHIL # 0.1 TH/MM3 (0-0.2); BASOPHIL % 0.8 % (0.0-2.0); EOSINOPHIL # 0.1 TH/MM3 (0-0.4); EOSINOPHIL % 1.1 % (0.0-4.0); HEMATOCRIT 43.6 % (35.0-46.0); HEMO FLAGS DIFF FINAL; LYMPH % 21.6 % (9.0-44.0); LYMPHOCYTE # 1.8 TH/MM3 (1.0-4.8); MEAN CELL VOLUME 98.2 FL (80.0-100.0); MEAN CORPUSCULAR HEMOGLOBIN 32.5 PG (27.0-34.0); MEAN CORPUSCULAR HGB CONC 33.1 % (32.0-36.0); MONO % 7.5 % (0.0-8.0); PLATELET COUNT 307 TH/MM3 (150-450); RED BLOOD COUNT 4.44 MIL/MM3 (4.00-5.30); RED CELL DISTRIBUTION WIDTH 13.2 % (11.6-17.2); WHITE BLOOD COUNT 8.4 TH/MM3 (4.0-11.0)
[2017-05-19] MEDS ORDERED: ONDANSETRON HCL 4 MG/2 ML VIAL IV PUSH ONE (10:45)
--- NOTE | 2017-05-19 10:53 | RADRPT ---
EXAM DATE/TIME: 05/19/2017 10:25 [facility] COMPARISON: CT BRAIN W/O CONTRAST, March 31, 2017, 12:04. INDICATIONS : Headache with right side weakness RADIATION DOSE: 56.35 CTDIvol (mGy) MEDICAL HISTORY : Cerebrovascular disease. Cardiovascular disease SURGICAL HISTORY : None. ENCOUNTER: Initial ACUITY: 1 day PAIN SCALE: 6/10 LOCATION: cranial TECHNIQUE: Multiple contiguous axial images were obtained of the head. Using automated exposure control and adj ustment of the mA and/or kV according to patient size, radiation dose was kept as low as reasonably a chievable to obtain optimal diagnostic quality images. DICOM format image data is available electro nically for review and comparison. FINDINGS: CEREBRUM: The ventricles are normal for age. No evidence of midline shift, mass lesion, hemorrhage or acute in farction. No extra-axial fluid collections are seen. POSTERIOR FOSSA: The cerebellum and brainstem are intact. The 4th ventricle is midline. The cerebellopontine angle i s unremarkable. EXTRACRANIAL: The visualized portion of the orbits is intact. SKULL: The calvaria is intact. No evidence of skull fracture. CONCLUSION: 1. No evidence of acute intracranial pathology. No masses are identified. Lanodn Garcia MD on May 19, 2017 at 10:48 Board Certified Radiologist. This report was verified electronically.
[2017-05-19 10:54] LABS: APTT (PATIENT) 27.9 SEC (24.3-30.1); PROTHROMBIN TIME - PATIENT 10.5 SEC (9.8-11.6)
[2017-05-19 10:59] LABS: ALT (GPT) 20 U/L (10-53); ANION GAP 7 MEQ/L (5-15); AST (GOT) 16 U/L (15-37); BICARBONATE 25.7 MEQ/L (21.0-32.0); BLOOD UREA NITROGEN 12 MG/DL (7-18); CHLORIDE 106 MEQ/L (98-107); GLOMERULAR FILTRATION RATE 93 ML/MIN (>89); POTASSIUM 4.2 MEQ/L (3.5-5.1); SODIUM (NA) 139 MEQ/L (136-145)
[2017-05-19 11:03] LABS: ALKALINE PHOSPHATASE 92 U/L (45-117); TOTAL BILIRUBIN ADULT 0.3 MG/DL (0.2-1.0)
[2017-05-19 11:06] LABS: CREATINE KINASE 60 U/L (26-192)
--- NOTE | 2017-05-19 11:56 | RADRPT ---
EXAM DATE/TIME: 05/19/2017 11:27 [facility] COMPARISON: CHEST SINGLE AP, May 04, 2017, 9:35. INDICATIONS : Palpitations, dizzy MEDICAL HISTORY : 1 stroke, 2 seizures SURGICAL HISTORY : loop monitor ENCOUNTER: Initial ACUITY: 1 day PAIN SCORE: 0/10 LOCATION: Bilateral chest FINDINGS: A single view of the chest demonstrates the lungs to be symmetrically aerated without evidence of mas s, infiltrate or effusion. The cardiomediastinal contours are unremarkable. Osseous structures are intact. CONCLUSION: No acute disease. Steve Brantley MD on May 19, 2017 at 11:54 Board Certified Radiologist. This report was verified electronically.
[2017-05-19] MEDS: SODIUM CHLOR 0.9% 1000 ML INJ 1,000 ML IV SCH (13:15)
[2017-05-19] MEDS ORDERED: ONDANSETRON HCL 4 MG/2 ML VIAL IV PUSH PRN (13:15)
--- NOTE | 2017-05-19 13:16 | HHI.HP ---
[facility] Service [facility] Primary Care Physician Cedrick Chase MD Admission Diagnosis left facial numbness Diagnoses: (1) tia vs CVA Diagnosis: Principal Chief Complaint: headache Travel History International Travel<30 Days: No Contact w/Intl Traveler <30 Da: No Traveled to Known Affected Are: No History of Present Illness patient is a 61 y/o female, known to me from previous admission, with history of recent CVA,seizure presented to ER with worsening headache. she says that she 's having headache since she had a stroke three months ago. she says that she's being followed up by and had a recent MRI of the neck. this morning when she was at work her headache started to get worse. headache was localized to left temporal , severe in intensity,throbbing in nature, associated with some nausea and dizziness. she says that ' she was about to pass out'. she also had some tingling of the left face. she has residual right sided weakness from the stroke. she denies any worsening focal weakness, chest pain or sob. Review of Systems Constitutional: DENIES: Fever, Weight loss, Chills, Night Sweats Eyes: DENIES: Blurred vision, Diplopia, Vision loss, Double Vision Ears, nose, mouth, throat: DENIES: Tinnitus, Vertigo, Throat pain, Epistaxis Respiratory: DENIES: Apneas, Cough, Snoring, Wheezing, Hemoptysis, Sputum production, Shortness of breath Cardiovascular: DENIES: Chest pain, Palpitations, Syncope, Dyspnea on Exertion , PND, Lower Extremity Edema, Orthopnea, Claudication Gastrointestinal: DENIES: Abdominal pain, Black stools, Bloody stools, Constipation, Diarrhea, Nausea, Vomiting, Difficulty Swallowing, Anorexia Genitourinary: DENIES: Urinary frequency, Urgency, Hematuria, Dysuria Musculoskeletal: DENIES: Joint pain, Muscle aches, Stiffness, Joint Swelling Integumentary: DENIES: Rash Neurologic: COMPLAINS OF: Headache, Paresthesias, DENIES: Abnormal gait, Localized weakness, Seizures, Speech Problems, Tremor, Poor Balance Psychiatric: DENIES: Anxiety, Confusion, Mood changes, Depression, Hallucinations, Agitation, Suicidal Ideation, Homicidal Ideation, Delusions Past Family Social History Past Medical History CVA fibromyalgia arthritis seizure Past Surgical History appendectomy pilonidal cyst removal recent loop recorder placement Reported Medications Butalbital-Acetaminophen 50-325 Mg Tab 1-2 Tab PO Q4HR PRN Do not exceed 6 tablets per day. Ibuprofen 800 Mg Tab 800 Mg PO Q8H PRN Atorvastatin (Atorvastatin Calcium) 40 Mg Tab 40 Mg PO HS Keppra (Levetiracetam) 1,000 Mg Tab 1,000 Mg PO BID Plavix (Clopidogrel Bisulfate) 75 Mg Tab 75 Mg PO HS Lunesta (Eszopiclone) 1 Mg Tab 1 Mg PO HS PRN Allergies: Coded Allergies: No Known Allergies (Verified , 03/31/17) Active Ordered Medications Current Medications Sodium Chloride 1,000 ml @ 70 mls/hr [id number] ONCE IV Last administered on 10:52; Start 05/19/17 at 10:27; Stop 05/20/17 at 00:44 Ondansetron HCl (Zofran Inj) 4 mg ONCE ONCE IV PUSH Last administered on 05/19 10:56; Start 05/19/17 at 10:45; Stop 05/19/17 at 10:46; Status DC Family History PVD in the father. Social History smokes a pack in three days ( trying to cut it down)- drinks occasionally. Physical Exam Vital Signs Vital Signs Date Time Temp Pulse Resp B/P (MAP) Pulse Ox O2 Delivery O2 Flow Rate FiO2 05/19/17 10:23 97.6 93 16 131/60 (83) 100 Physical Exam GENERAL: This is a well-nourished, well-developed patient, in no apparent distress. SKIN: No rashes, ecchymoses or lesions. Cool and dry. HEAD: Atraumatic. Normocephalic. No temporal or scalp tenderness. EYES: Pupils equal round and reactive. Extraocular motions intact. No scleral icterus. No injection or drainage. ENT: Nose without bleeding, purulent drainage or septal hematoma. Throat without erythema, tonsillar hypertrophy or exudate. Uvula midline. Airway patent. NECK: Trachea midline. No JVD or lymphadenopathy. Supple, nontender, no meningeal signs. CARDIOVASCULAR: Regular rate and rhythm without murmurs, gallops, or rubs. RESPIRATORY: Clear to auscultation. Breath sounds equal bilaterally. No wheezes , rales, or rhonchi. GASTROINTESTINAL: Abdomen soft, non-tender, nondistended. No hepato-splenomegaly , or palpable masses. No guarding. MUSCULOSKELETAL: Extremities without clubbing, cyanosis, or edema. No joint tenderness, effusion, or edema noted. No calf tenderness. Negative Homans sign bilaterally. NEUROLOGICAL: Awake and alert. Cranial nerves II through XII intact. Motor and sensory grossly within normal limits.mild right sided weakness. Laboratory Laboratory Tests Test 05/19/17 10:35 White Blood Count 8.4 Red Blood Count 4.44 Hemoglobin 14.4 Hematocrit 43.6 Mean Corpuscular Volume 98.2 Mean Corpuscular Hemoglobin 32.5 Mean Corpuscular Hemoglobin Concent 33.1 Red Cell Distribution Width 13.2 Platelet Count 307 Mean Platelet Volume 7.6 Neutrophils (%) (Auto) 69.0 Lymphocytes (%) (Auto) 21.6 Monocytes (%) (Auto) 7.5 Eosinophils (%) (Auto) 1.1 Basophils (%) (Auto) 0.8 Neutrophils # (Auto) 5.8 Lymphocytes # (Auto) 1.8 Monocytes # (Auto) 0.6 Eosinophils # (Auto) 0.1 Basophils # (Auto) 0.1 CBC Comment DIFF FINAL Differential Comment Prothrombin Time 10.5 Prothromb Time International Ratio 1.0 Activated Partial Thromboplast Time 27.9 Fibrinogen 413 Blood Urea Nitrogen 12 Creatinine 0.65 Random Glucose 104 Total Protein 7.3 Albumin 3.8 Calcium Level 8.8 Alkaline Phosphatase 92 Aspartate Amino Transf (AST/SGOT) 16 Alanine Aminotransferase (ALT/SGPT) 20 Total Bilirubin 0.3 Sodium Level 139 Potassium Level 4.2 Chloride Level 106 Carbon Dioxide Level 25.7 Anion Gap 7 Estimat Glomerular Filtration Rate 93 Total Creatine Kinase 60 Troponin I LESS THAN 0.02 Result Diagram: 05/19/17 1035 05/19/17 1035 Imaging Last Impressions Head CT 05/19/17 1026 Signed Impressions: Service Date/Time: Friday, May 19, 2017 10:25 - CONCLUSION: 1. No evidence of acute intracranial pathology. No masses are identified. Landon Garcia MD Chest X-Ray 05/19/17 0000 Signed Impressions: Service Date/Time: Friday, May 19, 2017 11:27 - CONCLUSION: No acute disease. Steve Brantley MD EKG; normal sinus rhythm Caprinfátima VTE Risk Assessment Caprini VTE Risk Assessment: Mod/High Risk (score >= 2) Caprini Risk Assessment Model Point Value = 1 Point Value = 2 Point Value = 3 Point Value = 5 Age 41-60 Minor surgery BMI > 25 kg/m2 Swollen legs Varicose veins or History of unexplained or recurrent spontaneous Oral contraceptives or hormone replacement Sepsis (< 1 month) Serious lung disease, including pneumonia (< 1 month) Abnormal pulmonary function Acute myocardial infarction Congestive heart failure (< 1 month) History of inflammatory bowel disease Medical patient at bed rest Age 61-74 Arthroscopic surgery Major open surgery (> 45 min) Laparoscopic surgery (> 45 min) Malignancy Confined to bed (> 72 hours) Immobilizing plaster cast Central venous access Age >= 75 History of VTE Family history of VTE Factor V Leiden Prothrombin [id number] Lupus anticoagulant Anticardiolipin antibodies Elevated serum homocysteine Heparin-induced thrombocytopenia Other congenital or acquired thrombophilia Stroke (< 1 month) Elective arthroplasty Hip, pelvis, or leg fracture Acute spinal cord injury (< 1 month) Prophylaxis Regimen Total Risk Factor Score Risk Level Prophylaxis Regimen 0-1 Low Early ambulation 2 Moderate Order ONE of the following: *Sequential Compression Device (SCD) *Heparin 5000 units SQ BID 3-4 Higher Order ONE of the following medications: *Heparin 5000 units SQ TID *Enoxaparin/Lovenox 40 mg SQ daily (WT < 150 kg, CrCl > 30 mL/min) *Enoxaparin/Lovenox 30 mg SQ daily (WT < 150 kg, CrCl > 10-29 mL/min) *Enoxaparin/Lovenox 30 mg SQ BID (WT < 150 kg, CrCl > 30 mL/min) AND/OR *Sequential Compression Device (SCD) 5 or more Highest Order ONE of the following medications: *Heparin 5000 units SQ TID (Preferred with Epidurals) *Enoxaparin/Lovenox 40 mg SQ daily (WT < 150 kg, CrCl > 30 mL/min) *Enoxaparin/Lovenox 30 mg SQ daily (WT < 150 kg, CrCl > 10-29 mL/min) *Enoxaparin/Lovenox 30 mg SQ BID (WT < 150 kg, CrCl > 30 mL/min) AND *Sequential Compression Device (SCD) Assessment and Plan Assessment and Plan A/P - TIA vs CVA with the history of fairly recent CVA CT head with no acute abnormality resume plavix and statin. continue with neuro-checks- consult neurology- PT/ ST. s/p recent loop recorder placement. -seizure; continue keppra- will monitor -DVT prophylaxis with subq Lovenox. Discussed Condition With ER physician and the patient. Adele Howard MD May 19, 2017 13:16
--- NOTE | 2017-05-19 14:41 | MB ---
cc: VIKAS MONTEIRO M.D. DATE OF CONSULTATION: 05/19/2017 DATE OF : 1955, 61 years old. REASON FOR CONSULTATION: Possible stroke versus transient ischemic attack. HISTORY OF PRESENT ILLNESS This is a 61 year-old woman with recent stroke seen by Dr. Hernandez, Dr. Bustillos and Dr. Armstrong in the past for various issues. 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 Patient comes in today because she had worsening headache and some cervicogenic pain. She apparently had an MRI of her C-spine recently a twin legs that report needs to be obtained and has not followed up with neurology thus far. She states the headache. He is usually in the right side. She got up normal this morning, she takes her headache medicine which is Fioricet she takes it everyday, because she states she has a headache daily since the stroke, but this time the headache being as it normally is on the right side. It was also on the left side. She had some neck pain but also exhibited mild dysesthesia over the left cheek, the V2 territory. She has no worsening weakness. She also felt lightheaded, she was at work and called her primary care physician Dr. Sands who advised her to go to the hospital via ambulance. But her daughter was already on the way and brought her in. PAST MEDICAL HISTORY: Stroke. Fibromyalgia Arthritis seizure. PAST SURGICAL HISTORY Appendectomy Pilonidal cyst and recent loop placed. MEDICATIONS current meds 1. Fioricet. 2. Ibuprofen. 3. Atorvastatin. 4. Keppra. 5. Plavix. 6. Lunesta. ALLERGIES None reported. Family history of peripheral vascular disease in the father. SOCIAL HISTORY She smokes a pack in 3 days and drinks occasionally. PHYSICAL EXAMINATION: IN GENERAL/VITAL SIGNS: on exam her vitals temperature is 97.6, pulse 92, respiratory rate 16. Blood pressure 131/60 satting 100% room air. NECK: Her neck is supple. No appreciable bruits. HEART: Regular. NEUROLOGICALLY: She is awake, alert. She is oriented and fluent. Her pupils reactive. Visual mast full. Face symmetrical. Tongue midline. She has some light touch diminution of the left V2 territory, some mild decreased strength in the right arm predominately distally she is at best a 4+, 5- out of 5/5. No significant leg lag. DTRs are symmetrical. Toes withdraws. Sensory otherwise the rest of her body is normal cervicogenic palpation shows tenderness over her left paracervical spine muscles, she actually yells and just touch it lightly gait is withheld. LABORATORY FINDINGS: Labs are reviewed. RPR nonreactive. Immunological studies were unremarkable as were hypercoagulable panels. Toxicology were less Keppra level in April was 54.3. Chemistries today were unremarkable. Coag panel her <<3:08>> 413. CBC was normal. RADIOLOGIC: CT of the head performed did not show anything acute. Her head MRA'S and MRIs yielded no intracranial significant stenosis. MRI showed the left basal ganglionic infarct, the first one was in the left basal ganglia and February, I believe she received TPA for that event. Her echo was done February 16 and basically ejection fraction was 50/55%, otherwise was unremarkable. She has a loop recorder currently. IMPRESSION/PLAN: 61-year-old woman with some left facial dysesthesias certainly may be from her neck pain. We need to obtain an MRI of the C spine done at [facility]. I do not see any signs of myelopathy. She will need some type of anti-inflammatory however, she is already on aspirin and Plavix, possibly short course of steroids as a steroid pack physical therapy. I would go ahead and get an EEG for completion get out of bed with physical therapy. I do not think an MRI needs to be repeated this point in time unless symptoms change consider a muscle relaxant at night as well for her neck pain and further recommendations to be made accordingly. MD MILAN Velasquez/quita /1:42 PM /1:57 PM
[2017-05-19] MEDS: ACETAMINOPHEN/HYDROcodone 325 MG/5 MG TAB PO PRN ×2 (16:24→22:28)
--- NOTE | 2017-05-19 16:25 | EKG ---
Date Performed: 05/19/2017 Time Performed: 11:00:12 PTAGE: 61 years EKG: Sinus rhythm MODERATE INTRAVENTRICULAR CONDUCTION DELAY BORDERLINE ECG PREVIOUS TRACING : 05/04/2017 08.48 Compared to prior tracing no significant change DOCTOR: Sunny Quintana Interpretating Date/Time 05/19/2017 16:23:30
[2017-05-19 17:30] VITALS: BP 95/52; PULSE 72; RESP 16; TEMP 98.2; O2SAT 97
--- NOTE | 2017-05-19 19:15 | MG ---
cc: YUDITH JULIO M.D. Lab No: Date: 05/19/17 Age: 61 Sex: F Race: REQUESTING PHYSICIAN Dr. Montez HISTORY An EEG was obtained on this 61-year-old, awake and asleep. Patient with headaches. DESCRIPTION This EEG shows prominent alpha rhythms diffusely intermixed with some slower beta rhythms maximum frontally. There are some left temporal higher amplitude sharp waves/discharges. There is some theta activity bilaterally. The patient is awake and asleep. Photic stimulation showed some driving response and possible photoparoxysmal response. INTERPRETATION Abnormal EEG because of frequent left posterior temporal theta/sharp discharges of possible epileptiform significance. These discharges were a bit more pronounced during photic stimulation when the patient apparently had some leg jerking and turned head to the side, presumably being a photoparoxysmal response of a focal nature. Clinical correlation. Yudith Julio MD OFC/EO /6:22 PM /7:05 PM
[2017-05-19 19:52] VITALS: O2SAT 94
[2017-05-19 20:41] VITALS: BP 97/49; PULSE 69; RESP 18; TEMP 98; O2SAT 97
[2017-05-19] MEDS ORDERED: CLOPIDOGREL 75 MG TAB PO SCH (21:00)
[2017-05-19] MEDS ORDERED: levETIRAcetam 500 MG TAB PO SCH (21:00)
[2017-05-19] MEDS ORDERED: ATORVASTATIN 40 MG TAB PO SCH (21:00)
[2017-05-19 23:25] VITALS: BP 98/54; PULSE 82; RESP 17; TEMP 97.6; O2SAT 97
[2017-05-20] MEDS: SODIUM CHLOR 0.9% 1000 ML INJ 1,000 ML IV SCH ×2 (02:35→09:35)
[2017-05-20 03:19] VITALS: BP 93/64; PULSE 70; RESP 17; TEMP 97.6; O2SAT 97
[2017-05-20 07:19] VITALS: BP 101/51; PULSE 81; RESP 16; TEMP 97.8; O2SAT 96
[2017-05-20] MEDS ORDERED: ACETAMINOPHEN/HYDROcodone 325 MG/7.5 MG TAB PO PRN (08:45)
--- NOTE | 2017-05-20 08:46 | HHI.PR ---
Subjective Remarks Follow-up for headache, neck pain, facial tingling. The patient reports her symptoms are essentially the same today. She does have chronic neck pain and states her neurologist had been weaning her off of muscle relaxers, steroids, and Maxwell. She has a history of previous neck surgery with Dr. Alonzo. She had a cervical MRI done 2 weeks ago, unsure of the results. She has residual right- sided weakness and gait unsteadiness from her past stroke, but states she's able to ambulate without assistance at baseline despite this. She states that she's been having chronic neck pain and headaches for 20 years as well as fibromyalgia and has had extensive workup for this as outpatient with her PCP. Objective Vitals Vital Signs Date Time Temp Pulse Resp B/P (MAP) Pulse Ox O2 Delivery O2 Flow Rate FiO2 05/20/17 07:19 97.8 81 16 101/51 (68) 96 05/20/17 03:19 97.6 70 17 93/64 (74) 97 05/19/17 23:25 97.6 82 17 98/54 (69) 97 05/19/17 20:41 98.0 69 18 97/49 (65) 97 05/19/17 19:52 94 05/19/17 17:30 98.2 72 16 95/52 (66) 97 05/19/17 10:23 97.6 93 16 131/60 (83) 100 I/O 05/19/17 05/19/17 05/19/17 05/20/17 05/20/17 05/20/17 06:59 14:59 22:59 06:59 14:59 22:59 Intake Total 280 ml 500 ml Balance 280 ml 500 ml Intake IV Total 280 ml 500 ml Result Diagram: 05/19/17 1035 05/19/17 1035 Imaging Last Impressions Head CT 05/19/17 1026 Signed Impressions: Service Date/Time: Friday, May 19, 2017 10:25 - CONCLUSION: 1. No evidence of acute intracranial pathology. No masses are identified. Landon Garcia MD Chest X-Ray 05/19/17 0000 Signed Impressions: Service Date/Time: Friday, May 19, 2017 11:27 - CONCLUSION: No acute disease. Steve Brantley MD Objective Remarks GENERAL: Well-developed well-nourished. In no acute distress. SKIN: Warm and dry. No lesions noted. HEENT: Normocephalic. Pupils equal and round. Mucous membranes pink and moist. CARDIOVASCULAR: Regular rate and rhythm. No murmur appreciated. RESPIRATORY: No accessory muscle use. Clear to auscultation. Breath sounds equal bilaterally. GASTROINTESTINAL: Abdomen soft, non-tender, nondistended. Bowel sounds x4. MUSCULOSKELETAL: No obvious deformities. No clubbing or cyanosis. No edema. Bilateral paraspinal muscle TTP in the cervical area, worse on the left. NEUROLOGICAL: Awake and alert.Moves upper and lower extremities spontaneously. Normal speech. Strength 4/5 in the right upper extremity and 3/5 in the right lower extremity; 5/5 on the left. PSYCHIATRIC: Appropriate mood and affect; insight and judgment normal. A/P Problem List: (1) Headache ICD Code: R51 - Headache Status: Acute (2) Left facial numbness ICD Code: R20.0 - Anesthesia of skin Status: Acute Assessment and Plan 61-year-old female with past medical history of CVA, fibromyalgia, arthritis, seizure who presented with worsening headache Headache: Possible referred cervical pain. Reviewed: Head CT with no acute process. -Recent outpatient cervical MRI, attempt to obtain results. -Neurology consulted, started patient on muscle relaxer and suggested possible steroid -IV Solu-Medrol 1 and continue oral prednisone taper -Consult patient's neurosurgeon with acute on chronic cervical pain -Maxwell as needed for pain -Heating pad Seizure disorder: EEG showed possible epileptiform features. -Discussed with neurology, recommended increasing nighttime dose of Keppra to 1500 and continue 1000 in the morning. -Seizure precautions History of CVA: Residual right-sided weakness. -PT and OT were consulted -Continue Plavix and statin DVT prophylaxis: SCDs Discharge Planning Monitor for clinical improvement and follow-up specialist recommendations. Addendum 1430: Neurosurgery evaluated the patient and was able to review her recent MRI; they recommended continued conservative management. The patient does feel like her pain has dropped from and 8-9/10 to a 6-7/10 after resuming previous therapies that she was on including Maxwell, muscle relaxer, and steroids. She states she is previously on similar medications but was taken off them because it was thought these contributed to her seizures. She is feeling better and agreeable for discharge home on current regimen for follow- up with PCP and neurology. She declines any further physical therapy and states that going back to work would be better for her than PT. Problem Qualifiers (1) Headache: Qualified Codes: R51 - Headache Alfredo Jones May 20, 2017 08:45
[2017-05-20] MEDS ORDERED: levETIRAcetam 500 MG TAB PO SCH ×2 (09:00→21:00)
[2017-05-20] MEDS ORDERED: ENOXAPARIN SODIUM 40 MG/0.4 ML SYRINGE SQ SCH (09:00)
[2017-05-20] MEDS ORDERED: methylPREDNISolone SOD SUCC 125 MG/2 ML VIAL IV PUSH ONE (09:15)
--- NOTE | 2017-05-20 09:16 | PD.CONS ---
History of Present Illness Service Neurosurgery Consult Requested By Medicine service Primary Care Physician Cedrick Chase MD Diagnoses: History of Present Illness 61-year-old female with recent CVA and seizure presented back to the emergency room 05/19/17 with persistent headaches since her CVA as well as chronic neck pain. She also complained of paresthesias in the left side of the face. She had a previous ACDF. She is previously seen by neurosurgery in 2015. Review of Systems Constitutional: DENIES: Fever Eyes: DENIES: Blurred vision, Diplopia Ears, nose, mouth, throat: DENIES: Hearing loss Cardiovascular: DENIES: Chest pain Gastrointestinal: COMPLAINS OF: Nausea Musculoskeletal: COMPLAINS OF: Neck pain Neurologic: COMPLAINS OF: Headache, Paresthesias, Seizures Past Family Social History Allergies: Coded Allergies: No Known Allergies (Verified , 03/31/17) Past Medical History CVA Seizure disorder Arthritis Fibromyalgia Past Surgical History ACDF Appendectomy Reported Medications Reported Meds & Active Scripts Active Reported Butalbital-Acetaminophen 50-325 Mg Tab 1-2 Tab PO Q4HR PRN Do not exceed 6 tablets per day. Ibuprofen 800 Mg Tab 800 Mg PO Q8H PRN Atorvastatin (Atorvastatin Calcium) 40 Mg Tab 40 Mg PO HS Keppra (Levetiracetam) 1,000 Mg Tab 1,000 Mg PO BID Plavix (Clopidogrel Bisulfate) 75 Mg Tab 75 Mg PO HS Lunesta (Eszopiclone) 1 Mg Tab 1 Mg PO HS PRN Social History Smokes 1 pack of cigarettes every 2-3 days. Occasional alcohol use Physical Exam Vital Signs Vital Signs Date Time Temp Pulse Resp B/P (MAP) Pulse Ox O2 Delivery O2 Flow Rate FiO2 05/20/17 07:19 97.8 81 16 101/51 (68) 96 05/20/17 03:19 97.6 70 17 93/64 (74) 97 05/19/17 23:25 97.6 82 17 98/54 (69) 97 05/19/17 20:41 98.0 69 18 97/49 (65) 97 05/19/17 19:52 94 05/19/17 17:30 98.2 72 16 95/52 (66) 97 05/19/17 10:23 97.6 93 16 131/60 (83) 100 Physical Exam GENERAL: This is a well-nourished, well-developed patient, in no apparent distress. SKIN: No rashes, ecchymoses or lesions. Cool and dry. HEAD: Atraumatic. Normocephalic. No temporal or scalp tenderness. EYES: Pupils equal round and reactive. Extraocular motions intact. No scleral icterus. No injection or drainage. ENT: Nose without bleeding, purulent drainage or septal hematoma. Throat without erythema, tonsillar hypertrophy or exudate. Uvula midline. Airway patent. NECK: Trachea midline. No JVD or lymphadenopathy. Supple, nontender, no meningeal signs. CARDIOVASCULAR: Regular rate and rhythm without murmurs, gallops, or rubs. RESPIRATORY: Clear to auscultation. Breath sounds equal bilaterally. No wheezes , rales, or rhonchi. GASTROINTESTINAL: Abdomen soft, non-tender, nondistended. No hepato-splenomegaly , or palpable masses. No guarding. MUSCULOSKELETAL: Extremities without clubbing, cyanosis, or edema. No joint tenderness, effusion, or edema noted. No calf tenderness. Negative Homans sign bilaterally. NEUROLOGICAL: Awake and alert. Cranial nerves II through XII intact. Motor and sensory grossly within normal limits. Five out of 5 muscle strength in all muscle groups. Normal speech. Laboratory Laboratory Tests Test 05/19/17 10:35 White Blood Count 8.4 Red Blood Count 4.44 Hemoglobin 14.4 Hematocrit 43.6 Mean Corpuscular Volume 98.2 Mean Corpuscular Hemoglobin 32.5 Mean Corpuscular Hemoglobin Concent 33.1 Red Cell Distribution Width 13.2 Platelet Count 307 Mean Platelet Volume 7.6 Neutrophils (%) (Auto) 69.0 Lymphocytes (%) (Auto) 21.6 Monocytes (%) (Auto) 7.5 Eosinophils (%) (Auto) 1.1 Basophils (%) (Auto) 0.8 Neutrophils # (Auto) 5.8 Lymphocytes # (Auto) 1.8 Monocytes # (Auto) 0.6 Eosinophils # (Auto) 0.1 Basophils # (Auto) 0.1 CBC Comment DIFF FINAL Differential Comment Prothrombin Time 10.5 Prothromb Time International Ratio 1.0 Activated Partial Thromboplast Time 27.9 Fibrinogen 413 Blood Urea Nitrogen 12 Creatinine 0.65 Random Glucose 104 Total Protein 7.3 Albumin 3.8 Calcium Level 8.8 Alkaline Phosphatase 92 Aspartate Amino Transf (AST/SGOT) 16 Alanine Aminotransferase (ALT/SGPT) 20 Total Bilirubin 0.3 Sodium Level 139 Potassium Level 4.2 Chloride Level 106 Carbon Dioxide Level 25.7 Anion Gap 7 Estimat Glomerular Filtration Rate 93 Total Creatine Kinase 60 Troponin I LESS THAN 0.02 Result Diagram: 05/19/17 1035 05/19/17 1035 Imaging The patient's 04/23/2017 MRI cervical spine [facility] have been reviewed by the undersigned. The study reveals previous C5 6 ACDF which appears intact. There is moderate C45 and mild C6 7 posterior osteophytic disc complex without significant spinal canal compromise. There is no evidence of significant foramina stenosis throughout the cervical spine. No abnormal signal intensity within the spinal cord. Assessment and Plan Assessment and Plan Impression: 1. Cervical spondylosis and degenerative disc disease adjacent to prior C5 6 ACDF. 2. No evidence of spinal cord or nerve compression on MRI. No evidence of focal cervical radiculopathy or myelopathy on examination. 3. History of fibromyalgia 4. History of arthritis Conditions: No surgical intervention indicated at this point. The patient will need to continue conservative treatment options including possible physical therapy, use of NSAIDs, muscle relaxants, independent exercises. Possible pain management intervention evaluation if persistent pain. She is normally seen by Dr. Celaya for neurosurgery evaluation, and may follow- up in his office if further problems develop. Jhonatan Alonzo MD May 20, 2017 09:16
[2017-05-20 11:47] VITALS: BP 98/55; PULSE 91; RESP 20; TEMP 98.3; O2SAT 95
[2017-05-20] MEDS ORDERED: HYDR-3580 PO (14:57)
[2017-05-20] MEDS ORDERED: PRED-503 PO (14:57)
[2017-05-20] MEDS ORDERED: LEVE500 PO ×2 (14:57)
[2017-05-20] MEDS ORDERED: TIZA4 PO (14:57)
[2017-05-20] MEDS ORDERED: predniSONE 20 MG TAB PO SCH (21:00)
== END 2017-05-20 15:54 | disposition home or self-care (01) ==
LOC: NEPC 10:21 → NEDA 12:56 → NEPFCDU 13:35
PROVIDERS: ADMIT Hospitalist; ATTEND Hospitalist
DX: R20.0 Anesthesia of skin (principal); R51 Headache; R11.0 Nausea; R42 Dizziness and giddiness; R00.2 Palpitations; R94.01 Abnormal electroencephalogram [EEG]; M54.2 Cervicalgia; R20.2 Paresthesia of skin; E78.00 Pure hypercholesterolemia, unspecified; M79.7 Fibromyalgia; G89.29 Other chronic pain; I69.351 Hemiplegia and hemiparesis following cerebral infarction affecting right dominant side; G40.909 Epilepsy, unspecified, not intractable, without status epilepticus; M47.812 Spondylosis without myelopathy or radiculopathy, cervical region; F41.9 Anxiety disorder, unspecified; F32.9 Major depressive disorder, single episode, unspecified; M19.90 Unspecified osteoarthritis, unspecified site; F17.210 Nicotine dependence, cigarettes, uncomplicated; Z79.899 Other long term (current) drug therapy; Z98.1 Arthrodesis status
CPT/HCPCS: 70450; 71010; 80053; 82550; 84484; 85025; 85384; 85610; 85730; 86850; 86900; 86901; 93005; 95819; 96361; 96374; 96375; G0378; G8987-GP; G8988-GP; J2405; J2930; J7030